=== PATIENT | male | born 1980 | race Caucasian/White ===

== ENCOUNTER 2021-07-13 18:02 | Inpatient (IN) ==
[2021-07-13] MEDS ORDERED: ONDANSETRON INJ 2 MG/ML 2 ML VIAL IV STA (18:15)
--- NOTE | 2021-07-13 18:19 | Emergency Department Note ---
Impression & Plan Acute alcoholic liver disease ADMIT ED Provider Note HPI: The patient is a 41-year-old male with history of alcohol abuse, presents the emergency department today with chief complaint of nausea and abdominal pain that has been ongoing for several weeks. Patient states he saw his primary care provider on Wednesday for the symptoms, he was advised to come to the emergency room as he did have scleral icterus, abdominal distention, concern for liver failure secondary to alcohol abuse. Patient states that he had work over the weekend and describes himself as "stubborn" and therefore did not come to the emergency room until today. On arrival he is hemodynamically stable, he is noted to be jaundiced with scleral icterus, he does have abdominal distention and pain. He states he has had some vomiting over the past several days, denies any hematemesis. States he has had some blood per rectum. He is otherwise in no acute distress on my initial evaluation. ROS: -GI: Abdominal pain, concern for alcoholic hepatitis, nausea and vomiting *10 point review systems was conducted and is otherwise negative unless stated above *Outpatient medications and allergy history reviewed PE: General: Alert, NAD, jaundiced appearance HEENT: Normocephalic, atraumatic Eyes: Extraocular eye movement is intact, no scleral erythema, there is scleral icterus noted Pulmonary: Clear to auscultation bilaterally, no wheezing Cardio: Regular rate and rhythm GI: Abdomen is distended, moderate tenderness to palpation : No suprapubic tenderness MSK: No evidence of trauma or malformation of the extremities, no edema Skin: No evidence of rash, jaundice appearance Neuro: Alert, no focal deficits Psychiatric: Cooperative monitor technician: - An order was placed for continuous cardiac monitoring - Patient was noted to be in sinus rhythm with rate of 110 EKG: Rate: 114 Rhythm: Sinus rhythm Intervals: Within normal limits ST changes: No ST elevation Time: 1822 Medical Decision Making: Patient presented to the emergency department at the advice of his outpatient physician, he has had some generalized weakness as well as nausea, states he has had some abdominal discomfort. Patient states he is a longstanding history of alcohol abuse, drinks apparently 5-6 alcoholic beverages a day. On arrival here to the ED he is alert and in no acute distress but he is jaundiced appearing, does have scleral icterus. IV was established, lab work obtained, patient has a significant leukocytosis greater than 22,000 and therefore blood cultures were drawn and patient was started on IV ceftriaxone. Mild LFT elevation, no acute kidney injury, bilirubin is markedly elevated greater than 15. Unable to obtain ammonia or lipase secondary to icteric blood. CT imaging of the abdomen pelvis shows evidence of changes consistent with cirrhotic liver disease. Patient has a small amount of ascites. Possible ileus. No acute surgical abnormality is noted. Patient was given pain medicine and antiemetics here in the ED, on my reassessment he states he is feeling improved from previous. He has not previously been admitted to the hospital for any of these issues, states he is not currently on any medications, I believe at this time he would benefit from admission with GI consultation, he will be started on ceftriaxone prophylactically, low suspicion for SBP but with elevated leukocytosis will start prophylactically. Patient is in agreement for admission, hospitalist service from [facility] was consulted for admission the patient was admitted in stable condition. Diagnosis: 1. Alcoholic cirrhosis, acute alcoholic liver failure 2. Hyperbilirubinemia 3. Abdominal pain, nausea and vomiting 4. Leukocytosis Disposition: Admission Bowen Vigil DO Emergency Medicine Past Med/Surg History Medical History Condyloma No significant past medical history Surgical History History of surgery "stomach ulcer surgery" Family History (Updated 07/04/19 @ 09:43 by Pam Tristan) Mother Hypertension Social History Smoking Status: Current every day smoker Tobacco Type: Cigarettes Hx Alcohol Use: Yes marital status: Single Feels Safe at Home: Yes Allergies Allergies Allergy/AdvReac Type Severity Reaction Status Date / Time No Known Allergies Allergy Verified 07/13/21 18:18 Home Meds Home Medications Medication Instructions Recorded Confirmed albuterol sulfate 90 mcg/actuation 2 puff INHALATION QID PRN 07/13/21 07/13/21 aerosol inhaler Results & Data (ED) Vital Signs Vital Signs - 24 hr 07/13/21 18:06 07/13/21 18:38 Temperature 36.6 C Temperature Source Temporal Artery Scan Pulse Rate 100 H Pulse Rate [Left Radial] 115 H Pulse Rhythm [Left Radial] Regular Pulse Strength [Left Radial] Normal Respiratory Rate 16 20 Respiratory Effort / Characteristics Non-Labored Non-Labored Respiratory Depth Normal Normal Respiratory Pattern Regular Blood Pressure 150/95 H Blood Pressure [Left Radial Artery] 145/97 H Blood Pressure Mean 113 Blood Pressure Mean [Left Radial Artery] 113 Pulse Oximetry 94 98 Oxygen Delivery Method Room Air Room Air Sepsis Recent Fever Within 48 Hours No Sepsis New/Unexplained Change in Mental Status No Sepsis Action Taken by Nursing No Action Required Laboratory Data Result diagrams: 07/13/21 18:31 07/13/21 18:31 Lab Results 07/13/21 07/13/21 07/13/21 Range/Units 18:31 18:31 18:31 WBC 22.80 H (4.8-10.8) K/uL RBC 3.24 L (4.7-6.1) M/uL Hgb 12.2 L (14.0-18.0) g/dL Hct 35.7 L (42-52) % MCV 110.2 H (80-100) fL MCH 37.7 H (25-34) pg MCHC 34.2 (32-36) g/dL RDW Std Deviation 69.3 H (36.4-46.3) fL RDW Coeff of Mac 17.2 H (11.5-14.5) % Plt Count 234 (130-400) K/uL MPV 10.6 H (7.4-10.4) fL Immature Gran % (Auto) 0.7 % Neut % (Auto) 74.9 % Lymph % (Auto) 13.5 % [place] % (Auto) 6.8 % Eos % (Auto) 3.6 % Baso % (Auto) 0.5 % Neut # (Auto) 17.08 H (1.4-6.5) K/uL Lymph # (Auto) 3.07 (1.2-3.4) K/uL [place] # (Auto) 1.56 H (0.11-0.59) K/uL Eos # (Auto) 0.82 H (0-0.5) K/uL Baso # (Auto) 0.12 (0-0.2) K/uL Immature Gran # (Auto) 0.15 H (0.00-0.02) K/uL Macrocytosis Present Target Cells 1+ PT 14.9 H (9.0-12.0) Seconds INR 1.5 H (0.9-1.1) Sodium 132 L (136-145) mmol/L Potassium 3.4 L (3.5-5.1) mmol/L Chloride 96 L (98-107) mmol/L Carbon Dioxide 24 (21-32) mmol/L Anion Gap 12 H (3-11) BUN 5 L (6-23) mg/dl Creatinine 0.52 L (0.6-1.4) mg/dl Est Cr Clr Drug Dosing 260.5 ml/min Est GFR ( Amer) > 150.0 ml/min Est GFR (Non-Af Amer) 133.4 ml/min BUN/Creatinine Ratio 9.6 L (10-20) Glucose 120 H (70-99(Fasting)) mg/dl Lactate Calcium 7.3 L (8.5-10.1) mg/dl Total Bilirubin 15.1 H (0.2-1.0) mg/dl AST 173 H (13-39) U/L ALT 19 (7-52) U/L Alkaline Phosphatase 371 H (34-104) U/L Ammonia (18-72) umol/L Troponin I 0.03 (0-0.04) ng/ml Total Protein 6.6 (6.0-8.3) gm/dl Albumin 2.8 L (3.4-5.0) gm/dl Globulin 3.8 (2.5-4.0) gm/dl Albumin/Globulin Ratio 0.7 L (0.9-2) Lipase TNP 07/13/21 07/13/21 Range/Units 18:31 18:31 WBC (4.8-10.8) K/uL RBC (4.7-6.1) M/uL Hgb (14.0-18.0) g/dL Hct (42-52) % MCV (80-100) fL MCH (25-34) pg MCHC (32-36) g/dL RDW Std Deviation (36.4-46.3) fL RDW Coeff of Mac (11.5-14.5) % Plt Count (130-400) K/uL MPV (7.4-10.4) fL Immature Gran % (Auto) % Neut % (Auto) % Lymph % (Auto) % [place] % (Auto) % Eos % (Auto) % Baso % (Auto) % Neut # (Auto) (1.4-6.5) K/uL Lymph # (Auto) (1.2-3.4) K/uL [place] # (Auto) (0.11-0.59) K/uL Eos # (Auto) (0-0.5) K/uL Baso # (Auto) (0-0.2) K/uL Immature Gran # (Auto) (0.00-0.02) K/uL Macrocytosis Target Cells PT (9.0-12.0) Seconds INR (0.9-1.1) Sodium (136-145) mmol/L Potassium (3.5-5.1) mmol/L Chloride (98-107) mmol/L Carbon Dioxide (21-32) mmol/L Anion Gap (3-11) BUN (6-23) mg/dl Creatinine (0.6-1.4) mg/dl Est Cr Clr Drug Dosing ml/min Est GFR ( Amer) ml/min Est GFR (Non-Af Amer) ml/min BUN/Creatinine Ratio (10-20) Glucose (70-99(Fasting)) mg/dl Lactate TNP Calcium (8.5-10.1) mg/dl Total Bilirubin (0.2-1.0) mg/dl AST (13-39) U/L ALT (7-52) U/L Alkaline Phosphatase (34-104) U/L Ammonia (18-72) umol/L Troponin I (0-0.04) ng/ml Total Protein (6.0-8.3) gm/dl Albumin (3.4-5.0) gm/dl Globulin (2.5-4.0) gm/dl Albumin/Globulin Ratio (0.9-2) Lipase Administered Medications Discontinued Medications Ioversol (Optiray 320 100ml) 94 ml IV ONCE ONE Stop: 07/13/21 19:34 Last Admin: 07/13/21 19:33 Dose: 94 ml Documented by: [id number] Ondansetron HCl (Ondansetron Inj 2 Mg/Ml 2 Ml Vial) 4 mg IV NOW STA Stop: 07/13/21 18:16 Last Admin: 07/13/21 18:36 Dose: 4 mg Documented by: [id number] Imaging Data Radiologist's Impression: Abdomen/Pelvis CT 07/13/21 18:[address] WITH IV CONTRAST CT DOSE: 1597.64 mGy.cm HISTORY: Generalized abdominal pain, cirrhosis TECHNIQUE: Multiaxial CT images of the abdomen and pelvis were performed following the use of intravenous contrast. A dose lowering technique was utilized adhering to the principles of ALARA. COMPARISON STUDY: None. FINDINGS: Trace left pleural effusion. Severe hepatomegaly resulting in the elevated right hemidiaphragm. Right basilar linear densities consistent with mild compressive atelectasis. Small patchy densities within the left lower lobe posteriorly also favor compressive atelectasis from the pleural effusion. No fractures within the visualized osseous structures. Mild body wall edema. Subtle nodular contour to the liver consistent with cirrhosis. No hepatic or splenic masses. The spleen is normal in size. The adrenal glands, pancreas, and gallbladder are unremarkable. The main portal vein is patent. Normal caliber abdominal aorta. Multiple small upper abdominal varicosities are noted consistent with underlying portal hypertension. A 5 mm hypodense lesion within the upper pole of the left kidney. This is technically too small to characterize. The right kidney enhances normally. No hydronephrosis. A small amount of ascites is present. Questionable thickening within the jejunal loops within the left side the abdomen is likely due to the patient's diffuse edematous state. An enteritis could also a similar appearance but is considered less likely. Mildly dilated loops of small bowel within the midabdomen measuring up to 3.4 cm in diameter. This favors a mild ileus. A partial small bowel obstruction could also have a similar appearance. The bladder is unremarkable. The appendix is not identified. A few colonic diverticula. No evidence for acute diverticulitis. Questionable thickening of the ascending colon is likely due to a portal colopathy. IMPRESSION: 1. Cirrhotic and enlarged liver with multiple small upper abdominal varicosities consistent with underlying portal hypertension. 2. Small amount of ascites. 3. Trace left pleural effusion. 4. Mild diffuse body wall edema. 5. Questionable thickening within the jejunal loops within the left side of the abdomen is likely due to a combination of underdistention and the patient's diffuse edematous state. An enteritis is considered less likely but not entirely excluded. 6. A few mildly dilated gas and fluid-filled loops of small bowel within the midabdomen. This favors an ileus. A partial small bowel obstruction could also have a similar appearance in the appropriate clinical setting. 7. Additional findings as described above. ACT 112: Negative or not required by law. Electronically signed by: Erik Crisostomo M.D. 07/13/2021 7:52 PM Chest X-Ray 07/13/21 18:16 XR chest 1V portable HISTORY: weakness COMPARISON: None. FINDINGS: No pneumothorax. No pleural effusions. There is elevation the right hemidiaphragm. A few bibasilar linear densities favor subsegmental atelectasis. The upper lung zones remain clear. No evidence for pulmonary edema. The heart is top normal in size. IMPRESSION: 1. Elevation of the right hemidiaphragm. 2. A few bibasilar linear densities favor subsegmental atelectasis. ACT 112: Negative or not required by law. Electronically signed by: Erik Crisostomo M.D. 07/13/2021 6:47 PM Discharge Plan Visit Data Chief Complaint: GI Assessment Stated Complaint: LLQ ABDOMINAL PAIN, RECTAL BLEEDING, DYSLIPIDEMIA ED Provider: Bowen Vigil Discharge Problem: Acute alcoholic liver disease Forms Stand Alone Forms: [facility] [employer] Prescriptions Prescriptions: No Action albuterol sulfate 90 mcg/actuation HFA aerosol inhaler 2 puff INHALATION QID PRN (Reason: Shortness Of Breath Or Wheezing) RF: 0 Referrals Referrals: Surendra Casey DO [Primary Care Provider] -
[2021-07-13 18:43] LABS: Basophils # (auto) 0.12 K/uL (0-0.2); Basophils % (auto) 0.5 %; Eosinophils # (auto) 0.82 K/uL (0-0.5); Eosinophils % (auto) 3.6 %; Hematocrit (blood only) 35.7 % (42-52); Hemoglobin 12.2 g/dL (14.0-18.0); Immature Granulocytes # (auto) 0.15 K/uL (0.00-0.02); Immature Granulocytes % (auto) 0.7 %; Lymphocytes # (auto) 3.07 K/uL (1.2-3.4); Lymphocytes % (auto) 13.5 %; Mean Corpuscular Hemoglobin 37.7 pg (25-34); Mean Corpuscular Hgb Conc 34.2 g/dL (32-36); Mean Corpuscular Volume 110.2 fL (80-100); Mean Platelet Volume 10.6 fL (7.4-10.4); Monocytes # (auto) 1.56 K/uL (0.11-0.59); Monocytes % (auto) 6.8 %; Neutrophils # (auto) 17.08 K/uL (1.4-6.5); Neutrophils % (auto) 74.9 %; Platelet Count 234 K/uL (130-400); RDW Coefficient of Variation 17.2 % (11.5-14.5); RDW Standard Deviation 69.3 fL (36.4-46.3); Red Blood Count 3.24 M/uL (4.7-6.1)
[2021-07-13] MEDS ORDERED: cefTRIAXone SODIUM 2,000 MG/70 ML BAG IV STA (18:46)
--- NOTE | 2021-07-13 18:48 | XRay Report ---
XR chest 1V portable HISTORY: weakness COMPARISON: None. FINDINGS: No pneumothorax. No pleural effusions. There is elevation the right hemidiaphragm. A few bi basilar linear densities favor subsegmental atelectasis. The upper lung zones remain clear. No eviden ce for pulmonary edema. The heart is top normal in size. IMPRESSION: 1. Elevation of the right hemidiaphragm. 2. A few bibasilar linear densities favor subsegmental atelectasis. ACT 112: Negative or not required by law. Electronically signed by: Erik Crisostomo M.D. 07/13/2021 6:47 PM
[2021-07-13 18:51] LABS: INR 1.5 (0.9-1.1); Prothrombin Time 14.9 Seconds (9.0-12.0)
[2021-07-13 19:06] LABS: Macrocytosis Present; Target Cells 1+
[2021-07-13 19:10] LABS: Alanine Aminotransferase 19 U/L (7-52); Albumin Globulin Ratio 0.7 (0.9-2); Albumin Level 2.8 gm/dl (3.4-5.0); Alkaline Phosphatase 371 U/L (34-104); Anion Gap 12 (3-11); Aspartate Aminotransferase 173 U/L (13-39); BUN Creatinine Ratio 9.6 (10-20); Bilirubin,Total 15.1 mg/dl (0.2-1.0); Blood Urea Nitrogen 5 mg/dl (6-23); Calcium 7.3 mg/dl (8.5-10.1); Carbon Dioxide 24 mmol/L (21-32); Chloride 96 mmol/L (98-107); Creatinine Clr Calc Pharmacy 260.5 ml/min; Est GFR (African American) > 150.0 ml/min; Est GFR (Non-African American) 133.4 ml/min; Globulin 3.8 gm/dl (2.5-4.0); Glucose 120 mg/dl (70-99(Fasting)); Potassium 3.4 mmol/L (3.5-5.1); Sodium 132 mmol/L (136-145); Total Protein 6.6 gm/dl (6.0-8.3); Troponin I 0.03 ng/ml (0-0.04)
[2021-07-13] MEDS ORDERED: OPTIRAY 320 100ml IV ONE (19:33)
--- NOTE | 2021-07-13 19:54 | CT Scan Report ---
ABDOMEN AND PELVIS CT WITH IV CONTRAST CT DOSE: 1597.64 mGy.cm HISTORY: Generalized abdominal pain, cirrhosis TECHNIQUE: Multiaxial CT images of the abdomen and pelvis were performed following the use of intrave nous contrast. A dose lowering technique was utilized adhering to the principles of ALARA. COMPARISON STUDY: None. FINDINGS: Trace left pleural effusion. Severe hepatomegaly resulting in the elevated right hemidiaphr agm. Right basilar linear densities consistent with mild compressive atelectasis. Small patchy densit ies within the left lower lobe posteriorly also favor compressive atelectasis from the pleural effusi on. No fractures within the visualized osseous structures. Mild body wall edema. Subtle nodular conto ur to the liver consistent with cirrhosis. No hepatic or splenic masses. The spleen is normal in size . The adrenal glands, pancreas, and gallbladder are unremarkable. The main portal vein is patent. Nor mal caliber abdominal aorta. Multiple small upper abdominal varicosities are noted consistent with un derlying portal hypertension. A 5 mm hypodense lesion within the upper pole of the left kidney. This is technically too small to characterize. The right kidney enhances normally. No hydronephrosis. A sm all amount of ascites is present. Questionable thickening within the jejunal loops within the left si de the abdomen is likely due to the patient's diffuse edematous state. An enteritis could also a praful lar appearance but is considered less likely. Mildly dilated loops of small bowel within the midabdom en measuring up to 3.4 cm in diameter. This favors a mild ileus. A partial small bowel obstruction co uld also have a similar appearance. The bladder is unremarkable. The appendix is not identified. A fe w colonic diverticula. No evidence for acute diverticulitis. Questionable thickening of the ascending colon is likely due to a portal colopathy. IMPRESSION: 1. Cirrhotic and enlarged liver with multiple small upper abdominal varicosities consistent with unde rlying portal hypertension. 2. Small amount of ascites. 3. Trace left pleural effusion. 4. Mild diffuse body wall edema. 5. Questionable thickening within the jejunal loops within the left side of the abdomen is likely due to a combination of underdistention and the patient's diffuse edematous state. An enteritis is consi dered less likely but not entirely excluded. 6. A few mildly dilated gas and fluid-filled loops of small bowel within the midabdomen. This favors an ileus. A partial small bowel obstruction could also have a similar appearance in the appropriate c linical setting. 7. Additional findings as described above. ACT 112: Negative or not required by law. Electronically signed by: Erik Crisostomo M.D. 07/13/2021 7:52 PM
[2021-07-13] MEDS ORDERED: POTASSIUM CHLORIDE CRTAB 20 MEQ TABCR PO STA (20:09)
[2021-07-13] MEDS ORDERED: MULTI-VITAMIN INFUSION 10 ML, THIAMINE HCL 100 MG, FOLIC ACID 1 MG in SODIUM CHLORIDE 0... IV ONE (20:30)
[2021-07-13] MEDS ORDERED: PANTOPRAZOLE BOLUS/DRIP 1 EA IV STA (21:50)
--- NOTE | 2021-07-13 21:50 | History & Physical Report ---
Date of Service July 13, 2021 Assessment & Plan (1) Abdominal pain: Plan: Newly diagnosed cirrhosis secondary to alcoholism Multifactorial : UGI B (differentials include gastritis, PUD (history of stomach ulcer surgery), possible variceal bleed with note of upper GI varicosities/portal hypertension on imaging)/L GIB from possible internal hemorrhoids SBP, possible sepsis Alcoholic hepatitis, poor prognosis with Maddrey's DF score of 35.3 points New onset anemia secondary to GI bleed Complicated bronchitis, possible sepsis AG MA likely secondary to alcoholic ketoacidosis hyperlipidemia as per records Hyperglycemia rule out DM Hypokalemia ongoing tobacco abuse Medical telemetry IV PPI for UGI B, Octreotide infusion for possible variceal bleed if with further hemoglobin drop CS, ceftriaxone, Albumin for possible SBP GI consult Re: GI bleed, ascites, new diagnosis of cirrhosis, alcoholic hepatitis Anemia work-up, transfuse PRBC if hemoglobin less than 7 and or for symptomatic anemia Doxycycline for complicated bronchitis IVF GERI S, DT precautions Check hemoglobin A1c Replace potassium Nicotine patch as needed DVT prophylaxis. SCDs GI bleed Full code Text document was generated using [employer] voice recognition software. It may contain grammatical or spelling errors. Kindly contact undersigned for clarification of any documentation item in question. History of Present Illness Chief Complaint: Liver problems Primary Care Provider: Surendra Casey DO History obtained from patient and records. Medical history significant for stomach ulcer status post surgery, hyperlipidemia, ongoing tobacco/alcohol abuse. Patient has not been well for about a year. Admits to drinking alcohol in excess following a failed relationship. Denies suicidality. Patient noted increasing abdominal distention with tolerable abdominal pain over the last few months. Intermittent bright red blood per rectum, alternating constipation/diarrhea as per patient. Junky cough symptoms the last 2 months with some shortness of breath. No actual chest pain. Denies aspiration. Possible COVID-19 contacts at work as per patient. Patient has received COVID-19 vaccination. Patient told by some work mates that he was jaundiced. 3 days ago, patient noted melena symptoms along with bright red blood per rectum. Denies OTC NSAID intake. Patient consulted PCP's office 2 days ago. Concern for alcoholic hepatitis with ascites as per note. Abnormal outpatient labs noted as follows: WBC 19.5, hemoglobin 11.6, hematocrit 34, INR 1.2, AST 195, alk phos 466. Outpatient HCV antibody screen was negative. ER consultation recommended. Patient unable to comply right away due to work issues. Last alcoholic drink was this afternoon. No prior history of alcohol withdrawal seizures as per patient. IV Ceftriaxone given at the ER. 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 Allergies Allergy/AdvReac Type Severity Reaction Status Date / Time No Known Allergies Allergy Verified 07/13/21 18:18 Home Medications Medication Instructions Recorded Confirmed Type albuterol sulfate 90 mcg/actuation 2 puff INHALATION QID PRN 07/13/21 07/13/21 History aerosol inhaler Past Med/Surg History Medical History Condyloma No significant past medical history Surgical History History of surgery "stomach ulcer surgery" Family History (Updated 07/04/19 @ 09:43 by Pam Tristan) Mother Hypertension Social History Smoking Status: Current every day smoker Tobacco Type: Cigarettes Cigarettes Per Day: 1.5 PPD; Second Hand Exposure: No; Do You Dip or Chew Tobacco: No; Tobacco Cessation Education Requested by Patient: No Hx Alcohol Use: Yes Alcohol type: hard liquor Hx Substance Use: No Preferred Language: Lao Communication Ability: Effective Coach Driver Required: No Beliefs That Will Affect Care: None marital status: Single Current Living Situation: Family Current Living Situation Comment: Pt. lives w/ mother and father Feels Safe at Home: Yes Safety Concerns: Feels Safe At This Time Assistive Devices: Oxygen - at Night Review of Systems Review of Systems: As per HPI, all 10 systems reviewed, all other ROS negative Physical Exam Physical Exam: GENERAL: Comfortable, obese, no respiratory distress SKIN: jaundiced, warm HEENT: Pale palpebral conjunctivae, no ptosis, icteric sclerae, dry buccal mucosa NECK : Supple, short neck, no tenderness CHEST : Decreased breath sounds, occasional expiratory wheezes , no tenderness HEART : Tachycardic, no obvious murmurs ABDOMEN: distention, epigastric tenderness EXTREMITIES : Minimal LE swelling, no LE tenderness, no other conspicuous deformities noted NEUROLOGIC : Coherent, no facial asymmetry, no other gross focality Results & Data Results & Data ([facility]) Vital Signs (Past 12 Hours) Vital Signs Temp Pulse Pulse Resp BP BP Pulse Ox 07/13/21 20:33 115 H 20 136/96 98 07/13/21 18:38 115 H 20 145/97 H 98 07/13/21 18:06 36.6 C 100 H 16 150/95 H 94 Laboratory Results Laboratory Results WBC 22.80 K/uL (4.8-10.8) H 07/13/21 18:31 RBC 3.24 M/uL (4.7-6.1) L 07/13/21 18:31 Hgb 12.2 g/dL (14.0-18.0) L 07/13/21 18:31 Hct 35.7 % (42-52) L 07/13/21 18:31 MCV 110.2 fL (80-100) H 07/13/21 18:31 MCH 37.7 pg (25-34) H 07/13/21 18:31 MCHC 34.2 g/dL (32-36) 07/13/21 18:31 RDW Std Deviation 69.3 fL (36.4-46.3) H 07/13/21 18:31 RDW Coeff of Mac 17.2 % (11.5-14.5) H 07/13/21 18:31 Plt Count 234 K/uL (130-400) 07/13/21 18:31 MPV 10.6 fL (7.4-10.4) H 07/13/21 18:31 Immature Gran % (Auto) 0.7 % 07/13/21 18: Neut % (Auto) 74.9 % 07/13/21 18:31 Lymph % (Auto) 13.5 % 07/13/21 18:31 [place] % (Auto) 6.8 % 07/13/21 18:31 Eos % (Auto) 3.6 % 07/13/21 18:31 Baso % (Auto) 0.5 % 07/13/21 18:31 Neut # (Auto) 17.08 K/uL (1.4-6.5) H 07/13/21 18:31 Lymph # (Auto) 3.07 K/uL (1.2-3.4) 07/13/21 18:31 [place] # (Auto) 1.56 K/uL (0.11-0.59) H 07/13/21 18:31 Eos # (Auto) 0.82 K/uL (0-0.5) H 07/13/21 18:31 Baso # (Auto) 0.12 K/uL (0-0.2) 07/13/21 18:31 Immature Gran # (Auto) 0.15 K/uL (0.00-0.02) H 07/13/21 18:31 Macrocytosis Present 07/13/21 18:31 Target Cells 1+ 07/13/21 18:31 PT 14.9 Seconds (9.0-12.0) H 07/13/21 18:31 INR 1.5 (0.9-1.1) H 07/13/21 18:31 Sodium 132 mmol/L (136-145) L 07/13/21 18:31 Potassium 3.4 mmol/L (3.5-5.1) L 07/13/21 18:31 Chloride 96 mmol/L (98-107) L 07/13/21 18:31 Carbon Dioxide 24 mmol/L (21-32) 07/13/21 18:31 Anion Gap 12 (3-11) H 07/13/21 18:31 BUN 5 mg/dl (6-23) L 07/13/21 18:31 Creatinine 0.52 mg/dl (0.6-1.4) L 07/13/21 18:31 Est Cr Clr Drug Dosing 260.5 ml/min 07/13/21 18:31 Est GFR ( Amer) > 150.0 ml/min 07/13/21 18:31 Est GFR (Non-Af Amer) 133.4 ml/min 07/13/21 18:31 BUN/Creatinine Ratio 9.6 (10-20) L 07/13/21 18:31 Glucose 120 mg/dl (70-99(Fasting)) H 07/13/21 18:31 Lactate TNP 07/13/21 19:56 Calcium 7.3 mg/dl (8.5-10.1) L 07/13/21 18:31 Magnesium 1.4 mg/dl (1.7-2.4) L 07/13/21 18:31 Total Bilirubin 15.1 mg/dl (0.2-1.0) H 07/13/21 18:31 AST 173 U/L (13-39) H 07/13/21 18:31 ALT 19 U/L (7-52) 07/13/21 18:31 Alkaline Phosphatase 371 U/L (34-104) H 07/13/21 18:31 Ammonia umol/L (18-72) 07/13/21 18:31 Troponin I 0.03 ng/ml (0-0.04) 07/13/21 18:31 Total Protein 6.6 gm/dl (6.0-8.3) 07/13/21 18:31 Albumin 2.8 gm/dl (3.4-5.0) L 07/13/21 18:31 Globulin 3.8 gm/dl (2.5-4.0) 07/13/21 18:31 Albumin/Globulin Ratio 0.7 (0.9-2) L 07/13/21 18:31 Lipase TNP 07/13/21 18:31 Procalcitonin 0.30 ng/ml (0-0.5) 07/13/21 20:40 SARS-CoV-2, RNA, NAAT NEGATIVE (NEGATIVE) 07/13/21 20:31 Blood Type O Negative 07/13/21 18:31 Antibody Screen NEGATIVE 07/13/21 18:31 Impressions Abdomen/Pelvis CT 07/13/21 18:[address] WITH IV CONTRAST CT DOSE: 1597.64 mGy.cm HISTORY: Generalized abdominal pain, cirrhosis TECHNIQUE: Multiaxial CT images of the abdomen and pelvis were performed following the use of intravenous contrast. A dose lowering technique was utilized adhering to the principles of ALARA. COMPARISON STUDY: None. FINDINGS: Trace left pleural effusion. Severe hepatomegaly resulting in the elevated right hemidiaphragm. Right basilar linear densities consistent with mild compressive atelectasis. Small patchy densities within the left lower lobe posteriorly also favor compressive atelectasis from the pleural effusion. No fractures within the visualized osseous structures. Mild body wall edema. Subtle nodular contour to the liver consistent with cirrhosis. No hepatic or splenic masses. The spleen is normal in size. The adrenal glands, pancreas, and gallbladder are unremarkable. The main portal vein is patent. Normal caliber abdominal aorta. Multiple small upper abdominal varicosities are noted consistent with underlying portal hypertension. A 5 mm hypodense lesion within the upper pole of the left kidney. This is technically too small to characterize. The right kidney enhances normally. No hydronephrosis. A small amount of ascites is present. Questionable thickening within the jejunal loops within the left side the abdomen is likely due to the patient's diffuse edematous state. An enteritis could also a similar appearance but is considered less likely. Mildly dilated loops of small bowel within the midabdomen measuring up to 3.4 cm in diameter. This favors a mild ileus. A partial small bowel obstruction could also have a similar appearance. The bladder is unremarkable. The appendix is not identified. A few colonic diverticula. No evidence for acute diverticulitis. Questionable thickening of the ascending colon is likely due to a portal colopathy. IMPRESSION: 1. Cirrhotic and enlarged liver with multiple small upper abdominal varicosities consistent with underlying portal hypertension. 2. Small amount of ascites. 3. Trace left pleural effusion. 4. Mild diffuse body wall edema. 5. Questionable thickening within the jejunal loops within the left side of the abdomen is likely due to a combination of underdistention and the patient's diffuse edematous state. An enteritis is considered less likely but not entirely excluded. 6. A few mildly dilated gas and fluid-filled loops of small bowel within the midabdomen. This favors an ileus. A partial small bowel obstruction could also have a similar appearance in the appropriate clinical setting. 7. Additional findings as described above. ACT 112: Negative or not required by law. Electronically signed by: Erik Crisostomo M.D. 07/13/2021 7:52 PM Chest X-Ray 07/13/21 18:16 XR chest 1V portable HISTORY: weakness COMPARISON: None. FINDINGS: No pneumothorax. No pleural effusions. There is elevation the right hemidiaphragm. A few bibasilar linear densities favor subsegmental atelectasis. The upper lung zones remain clear. No evidence for pulmonary edema. The heart is top normal in size. IMPRESSION: 1. Elevation of the right hemidiaphragm. 2. A few bibasilar linear densities favor subsegmental atelectasis. ACT 112: Negative or not required by law. Electronically signed by: Erik Crisostomo M.D. 07/13/2021 6:47 PM Diagnostic Findings EKG as per my interpretation: Rate 115, sinus tachycardia, normal axis, T wave abnormalities inferior leads
[2021-07-13] MEDS ORDERED: DOXYCYCLINE HYCLATE 100 MG CAP PO STA (21:51)
[2021-07-13] MEDS ORDERED: DOXYCYCLINE HYCLATE 100 MG in DEXTROSE 5% 100 ML IV STA (21:51)
[2021-07-13] MEDS ORDERED: GABAPENTIN 600 MG TAB PO STA (21:58)
[2021-07-13] MEDS ORDERED: PANTOprazole 80 MG in DEXTROSE 5% 100 ML IV ONE (22:00)
[2021-07-13] MEDS ORDERED: MAGNESIUM SULFATE / D5W 1 GM/100 ML BAG IV STA (22:04)
[2021-07-13] MEDS ORDERED: GABAPENTIN 1200MG ALCOHOL WITHDRAWAL LOAD PO STA (22:07)
[2021-07-13] MEDS: PANTOprazole 40 MG in DEXTROSE 5% 100 ML IV SCH (22:29)
[2021-07-13] MEDS ORDERED: PROMETHAZINE HCL 12.5 MG in SODIUM CHLORIDE 0.9% 50 ML IV PRN (23:29)
[2021-07-13] MEDS ORDERED: LORazepam 2 MG/1 ML VIAL IV PRN (23:29)
[2021-07-13] MEDS ORDERED: oxyCODONE HCL IR 5 MG TAB (IMMEDIATE RELEASE) PO PRN (23:29)
[2021-07-13] MEDS ORDERED: ATIVAN IV ALCOHOL WITHDRAWL IV PRN (23:29)
[2021-07-13] MEDS: ACETAMINOPHEN 325 MG TAB PO PRN (23:40)
[2021-07-13] MEDS: MELATONIN 3 MG TAB PO PRN (23:40)
[2021-07-13] MEDS: FOLIC ACID 1 MG TAB PO SCH (23:56)
[2021-07-13] MEDS: THIAMINE HCL 100 MG TAB PO SCH (23:56)
[2021-07-14] MEDS: LORazepam 2 MG/1 ML VIAL IV PRN ×2 (00:01→08:20)
[2021-07-14] MEDS: MAGNESIUM SULFATE / D5W 1 GM/100 ML BAG IV SCH ×2 (00:27→03:25)
[2021-07-14 00:41] LABS: Hematocrit (blood only) 31.6 % (42-52); Hemoglobin 10.8 g/dL (14.0-18.0)
[2021-07-14 00:52] LABS: Base Excess VBG 3.4 mEq/L; Oxygen Saturation VBG 72.7 %; pH VBG 7.42 (7.36-7.41)
[2021-07-14 01:09] LABS: Anion Gap 8 (3-11); BUN Creatinine Ratio 9.1 (10-20); Blood Urea Nitrogen 5 mg/dl (6-23); Calcium 6.7 mg/dl (8.5-10.1); Carbon Dioxide 27 mmol/L (21-32); Chloride 98 mmol/L (98-107); Creatinine Clr Calc Pharmacy 247.5 ml/min; Est GFR (African American) > 150.0 ml/min; Est GFR (Non-African American) 130.3 ml/min; Glucose 131 mg/dl (70-99(Fasting)); Potassium 3.5 mmol/L (3.5-5.1); Sodium 133 mmol/L (136-145)
[2021-07-14] MEDS: NICOTINE 21 MG/24 HR TDSY TD SCH (02:16)
[2021-07-14] MEDS: ALBUMIN 25% 12.5 GM/50 ML VIAL IV SCH ×3 (02:26→14:08)
[2021-07-14] MEDS ORDERED: STAT IV STA ×2 (03:06→07:09)
[2021-07-14] MEDS ORDERED: OCTREOTIDE ACETATE 50 MCG in SYRINGE 9.5 ML IV ONE (03:15)
[2021-07-14] MEDS ORDERED: POTASSIUM CHLORIDE CRTAB 20 MEQ TABCR PO STA (03:18)
[2021-07-14] MEDS: GABAPENTIN 600 MG TAB PO SCH ×3 (03:31→17:58)
[2021-07-14] MEDS: OCTREOTIDE ACETATE 500 MCG in DEXTROSE 5% 100 ML IV SCH ×2 (03:45→12:46)
[2021-07-14] MEDS: PANTOprazole 40 MG in DEXTROSE 5% 100 ML IV SCH ×3 (03:47→12:46)
[2021-07-14 06:27] LABS: Basophils # (auto) 0.08 K/uL (0-0.2); Basophils % (auto) 0.5 %; Eosinophils # (auto) 0.77 K/uL (0-0.5); Eosinophils % (auto) 4.4 %; Hematocrit (blood only) 33.3 % (42-52); Immature Granulocytes # (auto) 0.11 K/uL (0.00-0.02); Immature Granulocytes % (auto) 0.6 %; Lymphocytes # (auto) 2.42 K/uL (1.2-3.4); Lymphocytes % (auto) 13.7 %; Mean Corpuscular Volume 112.1 fL (80-100); Mean Platelet Volume 10.4 fL (7.4-10.4); Monocytes # (auto) 1.01 K/uL (0.11-0.59); Monocytes % (auto) 5.7 %; Neutrophils # (auto) 13.31 K/uL (1.4-6.5); Neutrophils % (auto) 75.1 %; Platelet Count 204 K/uL (130-400); RDW Coefficient of Variation 17.5 % (11.5-14.5); RDW Standard Deviation 71.6 fL (36.4-46.3); Red Blood Count 2.97 M/uL (4.7-6.1); Reticulocyte % 4.1 % (0.5-2.0); Reticulocytes # 0.12 10^6/uL (0.02-0.10)
[2021-07-14 06:41] LABS: Color Urine Brown
[2021-07-14 06:42] LABS: Appearance Urine Slightly Cloudy (Clear); Specific Gravity Urine 1.028 (1.000-1.030)
[2021-07-14 06:43] LABS: Bacteria Urine 1+ (Negative); RBC Urine 0-4 /hpf (0-4)
[2021-07-14 07:03] LABS: Potassium 4.3 mmol/L (3.5-5.1)
[2021-07-14 07:11] LABS: Alanine Aminotransferase 17 U/L (7-52); Albumin Globulin Ratio 0.8 (0.9-2); Albumin Level 2.7 gm/dl (3.4-5.0); Alkaline Phosphatase 331 U/L (34-104); Anion Gap 9 (3-11); Aspartate Aminotransferase 160 U/L (13-39); BUN Creatinine Ratio 7.7 (10-20); Blood Urea Nitrogen 4 mg/dl (6-23); Carbon Dioxide 26 mmol/L (21-32); Chloride 98 mmol/L (98-107); Creatinine Clr Calc Pharmacy 261.8 ml/min; Est GFR (African American) > 150.0 ml/min; Est GFR (Non-African American) 133.4 ml/min; Ferritin 464.9 ng/ml (8-388); Globulin 3.3 gm/dl (2.5-4.0); Glucose 115 mg/dl (70-99(Fasting)); Iron 78 mcg/dl (35-175); Magnesium 1.8 mg/dl (1.7-2.4); Sodium 133 mmol/L (136-145); Transferrin 110 mg/dl (200-360)
[2021-07-14 07:15] LABS: Folate (Folic Acid) 4.25 ng/ml (>5.38)
[2021-07-14] MEDS ORDERED: CALCIUM GLUCONATE 10% 1,000 MG in DEXTROSE 5% 50 ML IV ONE (07:15)
[2021-07-14 07:21] LABS: Macrocytosis Present; Target Cells 1+
[2021-07-14 07:51] LABS: Estimated Average Glucose 91 mg/dl; Hemoglobin A1C 4.8 % (4.5-5.6)
[2021-07-14] MEDS: ACETAMINOPHEN 325 MG TAB PO PRN (08:19)
[2021-07-14] MEDS: THIAMINE HCL 100 MG TAB PO SCH (08:20)
[2021-07-14] MEDS: MULTIVITAMIN TAB PO SCH (08:20)
[2021-07-14] MEDS: FOLIC ACID 1 MG TAB PO SCH (08:20)
[2021-07-14] MEDS: DOXYCYCLINE HYCLATE 100 MG CAP PO SCH ×2 (08:21→19:54)
--- NOTE | 2021-07-14 09:01 | Gastrointestinal Consultation ---
Date of Consultation July 14, 2021 Assessment & Plan (1) Acute alcoholic liver disease: (2) Abdominal pain: (3) Elevated LFTs: 41 y/o male w/ h/o ETOH abuse, admitted w/ abd pain, distention, labs concerning for alcoholic hepatitis, sepsis. Possible SBP. - Arrange diagnostic/therapeutic paracentesis, please send fluid for albumin/protein, cell count and culture - UC/BC pending - Continue empiric ABX - Will review need for steroids pending w/u of above - Watch for ETOH withdrawal - Encourage pt to abstain from ETOH, consider rehab - Trend daily LFTs, INR - Would avoid APAP > 2 gm daily, NSAIDs, hepatotoxins - Thiamine, folic acid supplementation - Will need OP w/u for cirrhosis including EGD Thank you for allowing us to participate in the care of this patient. Please call with any acute changes, questions or concerns. Please see addendum below with additional recommendation from my supervising physician. Supervising Physician Co-Signing Physician Notes Attg add: I interviewed and examined pt, reviewed chart and labs. Pt with alc hep. Imaging without sahil dil. I calculate DF as 28. Rec pierre-cx, tap ascites, follow for DT's. Consider NAC although DF < 32. No need for albumin, PPI gtt. Defer abx management to primary service. Need for alcohol cessation d/w pt. History of Present Illness Reason for Consultation: gi bleed Requesting Physician: Dr. Stewart Attending Physician: Amadeo Leavitt MD History of Present Illness This is a 41 y/o male with h/o HLD, tobacco/ETOH abuse, history of previous stomach ulcer s/p surgical tx, who has been drinking ETOH heavily (1 L of vodka daily), admitted 07/13 after presenting with several symptoms including abd distension x months, intermittent hematochezia, cough x 2 months, SOB. As an OP LFTs were elevated. On arrival HGB 12.2, today is 11.3, WBC 22 K -> 17 today, procal elevated, concerning for sepsis, elevated INR, tbili 15, ALP 330, AST 160, low albumin, hyponatremia and hypocalcemia, CTAP w/ no sahil dil, but cirrhotic appearing liver, small ascites, findings of portal HTN, ? enteritis, ileus. Started on doxy for bronchitis thiamine and folic acid replacement. Maddrey's was elevated on admission, concerning for alcoholic hepatitis. He's had intermittent fevers, has tachycardia. On exam abd is distended, tender over the LLQ but complains of intermittent d iffuse abd discomfort. Denies CP, hematemesis, no BM since admission. Liver CT: 1. Hepatic steatosis and hepatomegaly. 2. Moderate ascites. 3. Subcentimeter kyree hepatis and retroperitoneal nodes. 4. Partial visualization of bilateral atelectasis and small left pleural effusion. Allergies Allergy/AdvReac Type Severity Reaction Status Date / Time No Known Allergies Allergy Verified 07/13/21 18:18 Home Medications Medication Instructions Recorded Confirmed Type albuterol sulfate 90 mcg/actuation 2 puff INHALATION QID PRN 07/13/21 07/13/21 History aerosol inhaler Patient History Medical History Condyloma No significant past medical history Surgical History History of surgery "stomach ulcer surgery" Family History (Updated 07/04/19 @ 09:43 by Pam Tristan) Mother Hypertension Social History Smoking Status: Current every day smoker Tobacco Type: Cigarettes Cigarettes Per Day: 1.5 PPD; Second Hand Exposure: No; Do You Dip or Chew Tobacco: No; Tobacco Cessation Education Requested by Patient: No Hx Alcohol Use: Yes Alcohol type: hard liquor Hx Substance Use: No Preferred Language: Iranian Communication Ability: Effective 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 lives w/ mother and father Feels Safe at Home: Yes Safety Concerns: Feels Safe At This Time Assistive Devices: Oxygen - Continuous Review of Systems Review of Systems: All systems reviewed & are unremarkable except as noted in HPI & below Physical Exam Constitutional: WD/WN, vitals as above Somewhat ill appearing Respiratory: normal respiratory effort, lungs clear to auscultation Cardiovascular: Rate/Rhythm: regular rhythm and + tachycardic Extremities: normal capillary refill; no edema Gastrointestinal (Abdomen): + distention, TTP LLQ, no rebound, guarding, + BS Skin: + jaundice Psychiatric: A+Ox3, euthymic affect Results & Data ([facility]) Vital Signs (Past 12 Hours) Vital Signs Temp Pulse Pulse Pulse Resp BP BP 07/14/21 08:12 38.6 C H 134 H 20 07/14/21 07:28 39.4 C H 134 H 07/14/21 04:24 37.3 C 126 H 16 07/13/21 23:32 125 H 07/13/21 23:29 37.9 C H 123 H 18 07/13/21 22:59 115 H 20 112/64 07/13/21 22:00 115 H 20 126/78 BP Pulse Ox 07/14/21 08:12 158/84 H 92 07/14/21 07:28 110/61 93 07/14/21 04:24 110/70 95 07/13/21 23:32 07/13/21 23:29 144/89 H 94 07/13/21 22:59 95 07/13/21 22:00 98 Laboratory Results 07/14/21 07/14/21 07/14/21 Range/Units 06:08 06:08 06:08 WBC (4.8-10.8) K/uL RBC (4.7-6.1) M/uL Hgb (14.0-18.0) g/dL Hct (42-52) % MCV (80-100) fL MCH (25-34) pg MCHC (32-36) g/dL RDW Std Deviation (36.4-46.3) fL RDW Coeff of Mac (11.5-14.5) % Plt Count (130-400) K/uL MPV (7.4-10.4) fL Immature Gran % (Auto) % Neut % (Auto) % Lymph % (Auto) % [place] % (Auto) % Eos % (Auto) % Baso % (Auto) % Reticulocyte % (Auto) (0.5-2.0) % Neut # (Auto) (1.4-6.5) K/uL Lymph # (Auto) (1.2-3.4) K/uL [place] # (Auto) (0.11-0.59) K/uL Eos # (Auto) (0-0.5) K/uL Baso # (Auto) (0-0.2) K/uL Reticulocyte # (0.02-0.10) 10^6/uL Immature Gran # (Auto) (0.00-0.02) K/uL Macrocytosis Target Cells PT (9.0-12.0) Seconds INR (0.9-1.1) VBG pH (7.36-7.41) VBG pCO2 (38-50) mmHg VBG pO2 mmHg VBG HCO3 mmol/L VBG O2 Saturation % VBG Base Excess mEq/L Barometric Pressure mm/Hg Sodium 133 L (136-145) mmol/L Potassium 4.3 D (3.5-5.1) mmol/L Chloride 98 (98-107) mmol/L Carbon Dioxide 26 (21-32) mmol/L Anion Gap 9 (3-11) BUN 4 L (6-23) mg/dl Creatinine 0.52 L (0.6-1.4) mg/dl Est Cr Clr Drug Dosing 261.8 ml/min Est GFR ( Amer) > 150.0 ml/min Est GFR (Non-Af Amer) 133.4 ml/min BUN/Creatinine Ratio 7.7 L (10-20) Glucose 115 H (70-99(Fasting)) mg/dl Estimat Average Glucose mg/dl Hemoglobin A1c (4.5-5.6) % Lactate Calcium 7.0 L (8.5-10.1) mg/dl Ionized Calcium 1.01 L (1.12-1.32) mmol/L Magnesium 1.8 (1.7-2.4) mg/dl Iron 78 (35-175) mcg/dl Transferrin 110 L (200-360) mg/dl Ferritin 464.9 H (8-388) ng/ml Total Bilirubin 14.0 H (0.2-1.0) mg/dl AST 160 H (13-39) U/L ALT 17 (7-52) U/L Alkaline Phosphatase 331 H (34-104) U/L Ammonia (18-72) umol/L Troponin I (0-0.04) ng/ml Total Protein 6.0 (6.0-8.3) gm/dl Albumin 2.7 L (3.4-5.0) gm/dl Globulin 3.3 (2.5-4.0) gm/dl Albumin/Globulin Ratio 0.8 L (0.9-2) Lipase Vitamin B12 1163 H (180-914) pg/ml Folate 4.25 L (>5.38) ng/ml Procalcitonin (0-0.5) ng/ml Urine Color Urine Appearance (Clear) Urine pH (4.5-7.5) Ur Specific [place] (1.000-1.030) Urine Protein (Negative) Urine Glucose (UA) (Negative) Urine Ketones (Negative) Urine Blood (Negative) Urine Nitrite (Negative) Urine Bilirubin (Negative) Urine Urobilinogen (Negative) Ur Leukocyte Esterase (Negative) Urine RBC (0-4) /hpf Urine WBC (0-5) /hpf Ur Epithelial Cells (0-5) /lpf Urine Bacteria (Negative) Ethyl Alcohol mg/dL (<10.0) mg/dl SARS-CoV-2, RNA, NAAT (NEGATIVE) Blood Type Antibody Screen 07/14/21 07/14/21 07/14/21 Range/Units 06:08 05:10 00:22 WBC 17.70 H (4.8-10.8) K/uL RBC 2.97 L (4.7-6.1) M/uL Hgb 11.0 L 10.8 L (14.0-18.0) g/dL Hct 33.3 L 31.6 L (42-52) % MCV 112.1 H (80-100) fL MCH 37.0 H (25-34) pg MCHC 33.0 (32-36) g/dL RDW Std Deviation 71.6 H (36.4-46.3) fL RDW Coeff of Mac 17.5 H (11.5-14.5) % Plt Count 204 (130-400) K/uL MPV 10.4 (7.4-10.4) fL Immature Gran % (Auto) 0.6 % Neut % (Auto) 75.1 % Lymph % (Auto) 13.7 % [place] % (Auto) 5.7 % Eos % (Auto) 4.4 % Baso % (Auto) 0.5 % Reticulocyte % (Auto) 4.1 H (0.5-2.0) % Neut # (Auto) 13.31 H (1.4-6.5) K/uL Lymph # (Auto) 2.42 (1.2-3.4) K/uL [place] # (Auto) 1.01 H (0.11-0.59) K/uL Eos # (Auto) 0.77 H (0-0.5) K/uL Baso # (Auto) 0.08 (0-0.2) K/uL Reticulocyte # 0.12 H (0.02-0.10) 10^6/uL Immature Gran # (Auto) 0.11 H (0.00-0.02) K/uL Macrocytosis Present Target Cells 1+ PT (9.0-12.0) Seconds INR (0.9-1.1) VBG pH (7.36-7.41) VBG pCO2 (38-50) mmHg VBG pO2 mmHg VBG HCO3 mmol/L VBG O2 Saturation % VBG Base Excess mEq/L Barometric Pressure mm/Hg Sodium (136-145) mmol/L Potassium (3.5-5.1) mmol/L Chloride (98-107) mmol/L Carbon Dioxide (21-32) mmol/L Anion Gap (3-11) BUN (6-23) mg/dl Creatinine (0.6-1.4) mg/dl Est Cr Clr Drug Dosing ml/min Est GFR ( Amer) ml/min Est GFR (Non-Af Amer) ml/min BUN/Creatinine Ratio (10-20) Glucose (70-99(Fasting)) mg/dl Estimat Average Glucose mg/dl Hemoglobin A1c (4.5-5.6) % Lactate Calcium (8.5-10.1) mg/dl Ionized Calcium (1.12-1.32) mmol/L Magnesium (1.7-2.4) mg/dl Iron (35-175) mcg/dl Transferrin (200-360) mg/dl Ferritin (8-388) ng/ml Total Bilirubin (0.2-1.0) mg/dl AST (13-39) U/L ALT (7-52) U/L Alkaline Phosphatase (34-104) U/L Ammonia (18-72) umol/L Troponin I (0-0.04) ng/ml Total Protein (6.0-8.3) gm/dl Albumin (3.4-5.0) gm/dl Globulin (2.5-4.0) gm/dl Albumin/Globulin Ratio (0.9-2) Lipase Vitamin B12 (180-914) pg/ml Folate (>5.38) ng/ml Procalcitonin (0-0.5) ng/ml Urine Color Brown Urine Appearance Slightly Cloudy (Clear) Urine pH (4.5-7.5) Ur Specific [place] 1.028 (1.000-1.030) Urine Protein (Negative) Urine Glucose (UA) (Negative) Urine Ketones (Negative) Urine Blood (Negative) Urine Nitrite (Negative) Urine Bilirubin (Negative) Urine Urobilinogen (Negative) Ur Leukocyte Esterase (Negative) Urine RBC 0-4 (0-4) /hpf Urine WBC 5-10 H (0-5) /hpf Ur Epithelial Cells 10-20 H (0-5) /lpf Urine Bacteria 1+ H (Negative) Ethyl Alcohol mg/dL (<10.0) mg/dl SARS-CoV-2, RNA, NAAT (NEGATIVE) Blood Type Antibody Screen 07/14/21 07/14/21 07/14/21 Range/Units 00:22 00:22 00:22 WBC (4.8-10.8) K/uL RBC (4.7-6.1) M/uL Hgb (14.0-18.0) g/dL Hct (42-52) % MCV (80-100) fL MCH (25-34) pg MCHC (32-36) g/dL RDW Std Deviation (36.4-46.3) fL RDW Coeff of Mac (11.5-14.5) % Plt Count (130-400) K/uL MPV (7.4-10.4) fL Immature Gran % (Auto) % Neut % (Auto) % Lymph % (Auto) % [place] % (Auto) % Eos % (Auto) % Baso % (Auto) % Reticulocyte % (Auto) (0.5-2.0) % Neut # (Auto) (1.4-6.5) K/uL Lymph # (Auto) (1.2-3.4) K/uL [place] # (Auto) (0.11-0.59) K/uL Eos # (Auto) (0-0.5) K/uL Baso # (Auto) (0-0.2) K/uL Reticulocyte # (0.02-0.10) 10^6/uL Immature Gran # (Auto) (0.00-0.02) K/uL Macrocytosis Target Cells PT (9.0-12.0) Seconds INR (0.9-1.1) VBG pH 7.42 H (7.36-7.41) VBG pCO2 44 (38-50) mmHg VBG pO2 42 mmHg VBG HCO3 28 mmol/L VBG O2 Saturation 72.7 % VBG Base Excess 3.4 mEq/L Barometric Pressure 733.6 mm/Hg Sodium 133 L (136-145) mmol/L Potassium 3.5 (3.5-5.1) mmol/L Chloride 98 (98-107) mmol/L Carbon Dioxide 27 (21-32) mmol/L Anion Gap 8 (3-11) BUN 5 L (6-23) mg/dl Creatinine 0.55 L (0.6-1.4) mg/dl Est Cr Clr Drug Dosing 247.5 ml/min Est GFR ( Amer) > 150.0 ml/min Est GFR (Non-Af Amer) 130.3 ml/min BUN/Creatinine Ratio 9.1 L (10-20) Glucose 131 H (70-99(Fasting)) mg/dl Estimat Average Glucose mg/dl Hemoglobin A1c (4.5-5.6) % Lactate Calcium 6.7 L (8.5-10.1) mg/dl Ionized Calcium (1.12-1.32) mmol/L Magnesium (1.7-2.4) mg/dl Iron (35-175) mcg/dl Transferrin (200-360) mg/dl Ferritin (8-388) ng/ml Total Bilirubin (0.2-1.0) mg/dl AST (13-39) U/L ALT (7-52) U/L Alkaline Phosphatase (34-104) U/L Ammonia (18-72) umol/L Troponin I (0-0.04) ng/ml Total Protein (6.0-8.3) gm/dl Albumin (3.4-5.0) gm/dl Globulin (2.5-4.0) gm/dl Albumin/Globulin Ratio (0.9-2) Lipase Vitamin B12 (180-914) pg/ml Folate (>5.38) ng/ml Procalcitonin (0-0.5) ng/ml Urine Color Urine Appearance (Clear) Urine pH (4.5-7.5) Ur Specific [place] (1.000-1.030) Urine Protein (Negative) Urine Glucose (UA) (Negative) Urine Ketones (Negative) Urine Blood (Negative) Urine Nitrite (Negative) Urine Bilirubin (Negative) Urine Urobilinogen (Negative) Ur Leukocyte Esterase (Negative) Urine RBC (0-4) /hpf Urine WBC (0-5) /hpf Ur Epithelial Cells (0-5) /lpf Urine Bacteria (Negative) Ethyl Alcohol mg/dL 120.5 H (<10.0) mg/dl SARS-CoV-2, RNA, NAAT (NEGATIVE) Blood Type Antibody Screen 07/13/21 07/13/21 07/13/21 Range/Units 20:40 20:31 19:56 WBC (4.8-10.8) K/uL RBC (4.7-6.1) M/uL Hgb (14.0-18.0) g/dL Hct (42-52) % MCV (80-100) fL MCH (25-34) pg MCHC (32-36) g/dL RDW Std Deviation (36.4-46.3) fL RDW Coeff of Mac (11.5-14.5) % Plt Count (130-400) K/uL MPV (7.4-10.4) fL Immature Gran % (Auto) % Neut % (Auto) % Lymph % (Auto) % [place] % (Auto) % Eos % (Auto) % Baso % (Auto) % Reticulocyte % (Auto) (0.5-2.0) % Neut # (Auto) (1.4-6.5) K/uL Lymph # (Auto) (1.2-3.4) K/uL [place] # (Auto) (0.11-0.59) K/uL Eos # (Auto) (0-0.5) K/uL Baso # (Auto) (0-0.2) K/uL Reticulocyte # (0.02-0.10) 10^6/uL Immature Gran # (Auto) (0.00-0.02) K/uL Macrocytosis Target Cells PT (9.0-12.0) Seconds INR (0.9-1.1) VBG pH (7.36-7.41) VBG pCO2 (38-50) mmHg VBG pO2 mmHg VBG HCO3 mmol/L VBG O2 Saturation % VBG Base Excess mEq/L Barometric Pressure mm/Hg Sodium (136-145) mmol/L Potassium (3.5-5.1) mmol/L Chloride (98-107) mmol/L Carbon Dioxide (21-32) mmol/L Anion Gap (3-11) BUN (6-23) mg/dl Creatinine (0.6-1.4) mg/dl Est Cr Clr Drug Dosing ml/min Est GFR ( Amer) ml/min Est GFR (Non-Af Amer) ml/min BUN/Creatinine Ratio (10-20) Glucose (70-99(Fasting)) mg/dl Estimat Average Glucose mg/dl Hemoglobin A1c (4.5-5.6) % Lactate TNP Calcium (8.5-10.1) mg/dl Ionized Calcium (1.12-1.32) mmol/L Magnesium (1.7-2.4) mg/dl Iron (35-175) mcg/dl Transferrin (200-360) mg/dl Ferritin (8-388) ng/ml Total Bilirubin (0.2-1.0) mg/dl AST (13-39) U/L ALT (7-52) U/L Alkaline Phosphatase (34-104) U/L Ammonia (18-72) umol/L Troponin I (0-0.04) ng/ml Total Protein (6.0-8.3) gm/dl Albumin (3.4-5.0) gm/dl Globulin (2.5-4.0) gm/dl Albumin/Globulin Ratio (0.9-2) Lipase Vitamin B12 (180-914) pg/ml Folate (>5.38) ng/ml Procalcitonin 0.30 (0-0.5) ng/ml Urine Color Urine Appearance (Clear) Urine pH (4.5-7.5) Ur Specific [place] (1.000-1.030) Urine Protein (Negative) Urine Glucose (UA) (Negative) Urine Ketones (Negative) Urine Blood (Negative) Urine Nitrite (Negative) Urine Bilirubin (Negative) Urine Urobilinogen (Negative) Ur Leukocyte Esterase (Negative) Urine RBC (0-4) /hpf Urine WBC (0-5) /hpf Ur Epithelial Cells (0-5) /lpf Urine Bacteria (Negative) Ethyl Alcohol mg/dL (<10.0) mg/dl SARS-CoV-2, RNA, NAAT NEGATIVE (NEGATIVE) Blood Type Antibody Screen 07/13/21 07/13/21 07/13/21 Range/Units 18:31 18:31 18:31 WBC (4.8-10.8) K/uL RBC (4.7-6.1) M/uL Hgb (14.0-18.0) g/dL Hct (42-52) % MCV (80-100) fL MCH (25-34) pg MCHC (32-36) g/dL RDW Std Deviation (36.4-46.3) fL RDW Coeff of Mac (11.5-14.5) % Plt Count (130-400) K/uL MPV (7.4-10.4) fL Immature Gran % (Auto) % Neut % (Auto) % Lymph % (Auto) % [place] % (Auto) % Eos % (Auto) % Baso % (Auto) % Reticulocyte % (Auto) (0.5-2.0) % Neut # (Auto) (1.4-6.5) K/uL Lymph # (Auto) (1.2-3.4) K/uL [place] # (Auto) (0.11-0.59) K/uL Eos # (Auto) (0-0.5) K/uL Baso # (Auto) (0-0.2) K/uL Reticulocyte # (0.02-0.10) 10^6/uL Immature Gran # (Auto) (0.00-0.02) K/uL Macrocytosis Target Cells PT (9.0-12.0) Seconds INR (0.9-1.1) VBG pH (7.36-7.41) VBG pCO2 (38-50) mmHg VBG pO2 mmHg VBG HCO3 mmol/L VBG O2 Saturation % VBG Base Excess mEq/L Barometric Pressure mm/Hg Sodium (136-145) mmol/L Potassium (3.5-5.1) mmol/L Chloride (98-107) mmol/L Carbon Dioxide (21-32) mmol/L Anion Gap (3-11) BUN (6-23) mg/dl Creatinine (0.6-1.4) mg/dl Est Cr Clr Drug Dosing ml/min Est GFR ( Amer) ml/min Est GFR (Non-Af Amer) ml/min BUN/Creatinine Ratio (10-20) Glucose (70-99(Fasting)) mg/dl Estimat Average Glucose 91 mg/dl Hemoglobin A1c 4.8 (4.5-5.6) % Lactate Calcium (8.5-10.1) mg/dl Ionized Calcium (1.12-1.32) mmol/L Magnesium 1.4 L (1.7-2.4) mg/dl Iron (35-175) mcg/dl Transferrin (200-360) mg/dl Ferritin (8-388) ng/ml Total Bilirubin (0.2-1.0) mg/dl AST (13-39) U/L ALT (7-52) U/L Alkaline Phosphatase (34-104) U/L Ammonia (18-72) umol/L Troponin I (0-0.04) ng/ml Total Protein (6.0-8.3) gm/dl Albumin (3.4-5.0) gm/dl Globulin (2.5-4.0) gm/dl Albumin/Globulin Ratio (0.9-2) Lipase Vitamin B12 (180-914) pg/ml Folate (>5.38) ng/ml Procalcitonin (0-0.5) ng/ml Urine Color Urine Appearance (Clear) Urine pH (4.5-7.5) Ur Specific [place] (1.000-1.030) Urine Protein (Negative) Urine Glucose (UA) (Negative) Urine Ketones (Negative) Urine Blood (Negative) Urine Nitrite (Negative) Urine Bilirubin (Negative) Urine Urobilinogen (Negative) Ur Leukocyte Esterase (Negative) Urine RBC (0-4) /hpf Urine WBC (0-5) /hpf Ur Epithelial Cells (0-5) /lpf Urine Bacteria (Negative) Ethyl Alcohol mg/dL (<10.0) mg/dl SARS-CoV-2, RNA, NAAT (NEGATIVE) Blood Type Antibody Screen 07/13/21 07/13/21 07/13/21 Range/Units 18:31 18:31 18:31 WBC (4.8-10.8) K/uL RBC (4.7-6.1) M/uL Hgb (14.0-18.0) g/dL Hct (42-52) % MCV (80-100) fL MCH (25-34) pg MCHC (32-36) g/dL RDW Std Deviation (36.4-46.3) fL RDW Coeff of Mac (11.5-14.5) % Plt Count (130-400) K/uL MPV (7.4-10.4) fL Immature Gran % (Auto) % Neut % (Auto) % Lymph % (Auto) % [place] % (Auto) % Eos % (Auto) % Baso % (Auto) % Reticulocyte % (Auto) (0.5-2.0) % Neut # (Auto) (1.4-6.5) K/uL Lymph # (Auto) (1.2-3.4) K/uL [place] # (Auto) (0.11-0.59) K/uL Eos # (Auto) (0-0.5) K/uL Baso # (Auto) (0-0.2) K/uL Reticulocyte # (0.02-0.10) 10^6/uL Immature Gran # (Auto) (0.00-0.02) K/uL Macrocytosis Target Cells PT 14.9 H (9.0-12.0) Seconds INR 1.5 H (0.9-1.1) VBG pH (7.36-7.41) VBG pCO2 (38-50) mmHg VBG pO2 mmHg VBG HCO3 mmol/L VBG O2 Saturation % VBG Base Excess mEq/L Barometric Pressure mm/Hg Sodium 132 L (136-145) mmol/L Potassium 3.4 L (3.5-5.1) mmol/L Chloride 96 L (98-107) mmol/L Carbon Dioxide 24 (21-32) mmol/L Anion Gap 12 H (3-11) BUN 5 L (6-23) mg/dl Creatinine 0.52 L (0.6-1.4) mg/dl Est Cr Clr Drug Dosing 260.5 ml/min Est GFR ( Amer) > 150.0 ml/min Est GFR (Non-Af Amer) 133.4 ml/min BUN/Creatinine Ratio 9.6 L (10-20) Glucose 120 H (70-99(Fasting)) mg/dl Estimat Average Glucose mg/dl Hemoglobin A1c (4.5-5.6) % Lactate TNP Calcium 7.3 L (8.5-10.1) mg/dl Ionized Calcium (1.12-1.32) mmol/L Magnesium (1.7-2.4) mg/dl Iron (35-175) mcg/dl Transferrin (200-360) mg/dl Ferritin (8-388) ng/ml Total Bilirubin 15.1 H (0.2-1.0) mg/dl AST 173 H (13-39) U/L ALT 19 (7-52) U/L Alkaline Phosphatase 371 H (34-104) U/L Ammonia (18-72) umol/L Troponin I 0.03 (0-0.04) ng/ml Total Protein 6.6 (6.0-8.3) gm/dl Albumin 2.8 L (3.4-5.0) gm/dl Globulin 3.8 (2.5-4.0) gm/dl Albumin/Globulin Ratio 0.7 L (0.9-2) Lipase TNP Vitamin B12 (180-914) pg/ml Folate (>5.38) ng/ml Procalcitonin (0-0.5) ng/ml Urine Color Urine Appearance (Clear) Urine pH (4.5-7.5) Ur Specific [place] (1.000-1.030) Urine Protein (Negative) Urine Glucose (UA) (Negative) Urine Ketones (Negative) Urine Blood (Negative) Urine Nitrite (Negative) Urine Bilirubin (Negative) Urine Urobilinogen (Negative) Ur Leukocyte Esterase (Negative) Urine RBC (0-4) /hpf Urine WBC (0-5) /hpf Ur Epithelial Cells (0-5) /lpf Urine Bacteria (Negative) Ethyl Alcohol mg/dL (<10.0) mg/dl SARS-CoV-2, RNA, NAAT (NEGATIVE) Blood Type Antibody Screen 07/13/21 07/13/21 Range/Units 18:31 18:31 WBC 22.80 H (4.8-10.8) K/uL RBC 3.24 L (4.7-6.1) M/uL Hgb 12.2 L (14.0-18.0) g/dL Hct 35.7 L (42-52) % MCV 110.2 H (80-100) fL MCH 37.7 H (25-34) pg MCHC 34.2 (32-36) g/dL RDW Std Deviation 69.3 H (36.4-46.3) fL RDW Coeff of Mac 17.2 H (11.5-14.5) % Plt Count 234 (130-400) K/uL MPV 10.6 H (7.4-10.4) fL Immature Gran % (Auto) 0.7 % Neut % (Auto) 74.9 % Lymph % (Auto) 13.5 % [place] % (Auto) 6.8 % Eos % (Auto) 3.6 % Baso % (Auto) 0.5 % Reticulocyte % (Auto) (0.5-2.0) % Neut # (Auto) 17.08 H (1.4-6.5) K/uL Lymph # (Auto) 3.07 (1.2-3.4) K/uL [place] # (Auto) 1.56 H (0.11-0.59) K/uL Eos # (Auto) 0.82 H (0-0.5) K/uL Baso # (Auto) 0.12 (0-0.2) K/uL Reticulocyte # (0.02-0.10) 10^6/uL Immature Gran # (Auto) 0.15 H (0.00-0.02) K/uL Macrocytosis Present Target Cells 1+ PT (9.0-12.0) Seconds INR (0.9-1.1) VBG pH (7.36-7.41) VBG pCO2 (38-50) mmHg VBG pO2 mmHg VBG HCO3 mmol/L VBG O2 Saturation % VBG Base Excess mEq/L Barometric Pressure mm/Hg Sodium (136-145) mmol/L Potassium (3.5-5.1) mmol/L Chloride (98-107) mmol/L Carbon Dioxide (21-32) mmol/L Anion Gap (3-11) BUN (6-23) mg/dl Creatinine (0.6-1.4) mg/dl Est Cr Clr Drug Dosing ml/min Est GFR ( Amer) ml/min Est GFR (Non-Af Amer) ml/min BUN/Creatinine Ratio (10-20) Glucose (70-99(Fasting)) mg/dl Estimat Average Glucose mg/dl Hemoglobin A1c (4.5-5.6) % Lactate Calcium (8.5-10.1) mg/dl Ionized Calcium (1.12-1.32) mmol/L Magnesium (1.7-2.4) mg/dl Iron (35-175) mcg/dl Transferrin (200-360) mg/dl Ferritin (8-388) ng/ml Total Bilirubin (0.2-1.0) mg/dl AST (13-39) U/L ALT (7-52) U/L Alkaline Phosphatase (34-104) U/L Ammonia (18-72) umol/L Troponin I (0-0.04) ng/ml Total Protein (6.0-8.3) gm/dl Albumin (3.4-5.0) gm/dl Globulin (2.5-4.0) gm/dl Albumin/Globulin Ratio (0.9-2) Lipase Vitamin B12 (180-914) pg/ml Folate (>5.38) ng/ml Procalcitonin (0-0.5) ng/ml Urine Color Urine Appearance (Clear) Urine pH (4.5-7.5) Ur Specific [place] (1.000-1.030) Urine Protein (Negative) Urine Glucose (UA) (Negative) Urine Ketones (Negative) Urine Blood (Negative) Urine Nitrite (Negative) Urine Bilirubin (Negative) Urine Urobilinogen (Negative) Ur Leukocyte Esterase (Negative) Urine RBC (0-4) /hpf Urine WBC (0-5) /hpf Ur Epithelial Cells (0-5) /lpf Urine Bacteria (Negative) Ethyl Alcohol mg/dL (<10.0) mg/dl SARS-CoV-2, RNA, NAAT (NEGATIVE) Blood Type O Negative Antibody Screen NEGATIVE Diagnostic Findings Liver CT: 1. Hepatic steatosis and hepatomegaly. 2. Moderate ascites. 3. Subcentimeter kyree hepatis and retroperitoneal nodes. 4. Partial visualization of bilateral atelectasis and small left pleural effusion. CTAP: 1. Cirrhotic and enlarged liver with multiple small upper abdominal varicosities consistent with underlying portal hypertension. 2. Small amount of ascites. 3. Trace left pleural effusion. 4. Mild diffuse body wall edema. 5. Questionable thickening within the jejunal loops within the left side of the abdomen is likely due to a combination of underdistention and the patient's diffuse edematous state. An enteritis is considered less likely but not entirely excluded. 6. A few mildly dilated gas and fluid-filled loops of small bowel within the midabdomen. This favors an ileus. A partial small bowel obstruction could also have a similar appearance in the appropriate clinical setting. 7. Additional findings as described above. CXR: 1. Elevation of the right hemidiaphragm. 2. A few bibasilar linear densities favor subsegmental atelectasis.
[2021-07-14] MEDS ORDERED: PIPERACILL/TAZOBAC CONSULT ACTIVE PRN (10:10)
[2021-07-14] MEDS ORDERED: ACETAMINOPHEN 325 MG TAB PO PRN (10:21)
[2021-07-14] MEDS ORDERED: PIPERACILLIN/TAZOBACTAM 4.5 GM in DEXTROSE 5% 100 ML IV ONE (10:30)
[2021-07-14] MEDS: guaiFENesin 600 MG TABCR PO SCH ×2 (12:09→19:55)
[2021-07-14 12:23] LABS: Hemoglobin 11.3 g/dL (14.0-18.0)
--- NOTE | 2021-07-14 12:51 | Electrocardiogram Report ---
Test Reason : Blood Pressure : / mmHG Vent. Rate : 114 BPM Atrial Rate : 114 BPM P-R Int : 198 ms QRS Dur : 094 ms QT Int : 318 ms P-R-T Axes : 038 061 -07 degrees QTc Int : 438 ms Sinus tachycardia with Fusion complexes T wave abnormality, consider inferior ischemia Abnormal ECG No previous ECGs available Confirmed by Abraham Heredia ([id number] on 07/14/2021 12:50:55 PM Referred By: Surendra Casey Confirmed By:Abraham Heredia
[2021-07-14 14:27] LABS: Hepatitis B Surf Ag Rflx Conf Neg (Neg)
--- NOTE | 2021-07-14 14:32 | Hospitalist Progress Note ---
Date of Service July 14, 2021 Assessment & Plan (1) Acute alcoholic liver disease: Plan: 41-year-old male with PMH of stomach ulcer status post surgery, HLD, ongoing tobacco/alcohol abuse [drinking heavily since last 15 months, 1 L of vodka daily] presented to our ED 07/13 due to increasing abdominal distention over the last few months, intermittent bright red blood per rectum [every 3 days per patient], cough symptoms since last 2 months with some shortness of breath. 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 He is being managed for the following: #. Alcoholic hepatitis #. Alcoholic cirrhosisnew diagnosis, Hepatitis panel pending, Outpatient HCV negative. #. Likely both UGI bleed and LGI bleed : Vit B12 level WNL, Folate level decreased, Iron panel with normal iron and ferritin #. Anemia: New onset, secondary to GI bleed. #. Impending alcohol withdrawal: Last drink on the afternoon of the day of arrival, drinks 1 L of vodka daily since last 15 months No prior history of alcohol withdrawal seizures per patient, last alcoholic drink on the afternoon of the day of arrival [07/13] Patient drinking heavily [see above] owing to failed relationship. Admitting CTAP: Cirrhotic liver with multiple small upper abdominal varicosities consistent with underlying portal hypertension. Small amount of ascites. Mild diffuse body wall edema. 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 Patient reports bright red blood intermittently. Differentials for GI bleed likely gastritis, PUD, possible variceal bleed, internal hemorrhoids. Admitting hemoglobin 12.2, 11.3 today. Continue to monitor hemoglobin. AWSS is protocol, telemetry monitoring, PCU status. Thiamine. Folic acid replacement. GI onboard: Appreciate recommendation Continue with PPI gtt., advised alcohol cessation. 07/14 d/w GI #. Enteritis #. Sepsis POA - Tachycardic at admission, leucocytosis at admission, enteritis. Admitting WBC 22.8K, downtrending; Procalcitonin 0.30 at presentation, stable/minimally downtrending. Admitting blood culture pending. Admitting CTAP: Possible thickening within the jejunal loops within the left side of the abdomen likely enteritis. 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 Continue with 07/14 Zosyn #. Hypomagnesemia #. Hyponatremia Admitting magnesium 1.4, repleted, continue to monitor/replete. Admitting sodium 132, stable/minimally improving. Likely secondary to poor p.o. intake on the background of alcohol abuse. Monitor telemetry. Expect to improve with improving p.o. intake. #. Bronchitis Patient reports cough for 2 months with brown sputum Continue with 07/14 doxycycline DVT prophylaxis: SCDs, GI bleed Full code Text document was generated using voice recognition software. It may contain grammatical or spelling errors. Kindly contact undersigned for clarification of any documentation item in question. Admission and Anticipated Discharge Date Admission Date: July 13, 2021 Subjective Patient seen and examined at bedside as a follow-up of newly diagnosed cirrhosis, impending alcohol withdrawal, likely upper GI bleed, likely SBP, possible sepsis, alcohol hepatitis. Patient was lying in bed, on 3 L nasal cannula oxygen, mild distress, febrile, sweating, had high temperatures overnight, reports no pain or burning with passing urine, reports discomfort in his belly but no pain, reports cough at baseline, alert and oriented x3, denies chest pain/palpitations/sore throat/increased cough/increased shortness of breath/other review of symptoms. Physical Exam Physical Exam: GENERAL: Alert and oriented x3. mild distress, on 3L. Febrile, Sweating. HEENT: No pallor, no icterus. Pupils equal, round and reactive to light. Oral mucosa moist. NECK: No JVD, no neck masses. HEART: S1 and S2 heard. Regular rhythm. Tachycardia. No murmur, no gallop. RESPIRATORY SYSTEM: Normal AP diameter. No accessory muscle use. No wheezing, no crackles. ABDOMEN: Soft, bowel sounds present, nontender, + distention. CENTRAL NERVOUS SYSTEM: No facial droop. Speech is clear. Obeys simple commands. Moves extremities. EXTREMITIES: 1-2+ BLE edema, no erythema seen. Fine tremors of the hands noted. Results & Data Results & Data ([facility]) Vital Signs (Past 12 Hours) Vital Signs Temp Pulse Pulse Resp BP Pulse Ox 07/14/21 11:32 37.1 C 124 H 20 132/94 92 07/14/21 09:00 39.5 C H 133 H 20 123/75 92 07/14/21 08:12 38.6 C H 134 H 20 158/84 H 92 07/14/21 07:28 39.4 C H 134 H 110/61 93 07/14/21 07:00 125 H 07/14/21 04:24 37.3 C 126 H 16 110/70 95
[2021-07-14] MEDS ORDERED: OPTIRAY 320 100ml IV ONE (15:26)
--- NOTE | 2021-07-14 15:51 | CT Scan Report ---
CT liver wo/w con CLINICAL HISTORY: elevated lfts TECHNIQUE: Helical axial images of the abdomen were obtained. Automated dose lowering techniques and/ or adjustment according to patient size were utilized for this exam. This exam was performed with an d without intravenous contrast. Comparison: None available at the time of this dictation. FINDINGS: Lower chest: There is a small left pleural effusion. Bilateral atelectasis is seen. Liver: Hepatic steatosis is noted. The liver is enlarged measuring 22 cm in craniocaudal dimension. Gallbladder and biliary tree: No calcified gallstones. Normal caliber wall. No intra- or extrahepatic biliary ductal dilation. Pancreas: Unremarkable, no focal lesions. Spleen: Unremarkable. Adrenals: Unremarkable. Kidneys and ureters: Unremarkable. Bowel: Unremarkable. Lymph nodes Retroperitoneal: Subcentimeter kyree hepatis and retroperitoneal nodes are seen. Mesenteric: Unremarkable. Peritoneum: Moderate ascites is seen. Vessels: Unremarkable. Abdominal wall: A fat-containing umbilical hernia is seen. Bones: Unremarkable. IMPRESSION: 1. Hepatic steatosis and hepatomegaly. 2. Moderate ascites. 3. Subcentimeter kyree hepatis and retroperitoneal nodes. 4. Partial visualization of bilateral atelectasis and small left pleural effusion. ACT 112: Negative or not required by law. Electronically signed by: Jose Allen M.D. 07/14/2021 3:50 PM
[2021-07-14] MEDS: PIPERACILLIN/TAZOBACTAM 3.375 GM in DEXTROSE 5% 100 ML IV SCH ×2 (17:58→23:56)
[2021-07-14] MEDS ORDERED: cefTRIAXone SODIUM 2,000 MG in DEXTROSE 5% 50 ML IV SCH (20:00)
[2021-07-14] MEDS: PANTOprazole 40 MG in SYRINGE 0 ML IV SCH (20:02)
[2021-07-14] MEDS: MELATONIN 3 MG TAB PO PRN (21:55)
[2021-07-15] MEDS: GABAPENTIN 600 MG TAB PO SCH ×3 (01:59→21:21)
[2021-07-15] MEDS: LORazepam 2 MG/1 ML VIAL IV PRN ×3 (05:53→21:30)
[2021-07-15 07:09] LABS: Hematocrit (blood only) 32.1 % (42-52); Hemoglobin 10.5 g/dL (14.0-18.0); Mean Corpuscular Hemoglobin 37.9 pg (25-34); Mean Corpuscular Hgb Conc 32.7 g/dL (32-36); Mean Corpuscular Volume 115.9 fL (80-100); Mean Platelet Volume 10.8 fL (7.4-10.4); Platelet Count 182 K/uL (130-400); RDW Coefficient of Variation 17.2 % (11.5-14.5); RDW Standard Deviation 72.6 fL (36.4-46.3); Red Blood Count 2.77 M/uL (4.7-6.1); White Blood Count 17.08 K/uL (4.8-10.8)
[2021-07-15 07:42] LABS: BUN Creatinine Ratio 7.8 (10-20); Calcium 7.3 mg/dl (8.5-10.1); Creatinine Clr Calc Pharmacy 206.9 ml/min; Est GFR (African American) 141.9 ml/min; Est GFR (Non-African American) 122.5 ml/min; Magnesium 1.5 mg/dl (1.7-2.4); Phosphorus 1.6 mg/dl (2.5-4.9); Potassium 3.9 mmol/L (3.5-5.1)
[2021-07-15] MEDS: PIPERACILLIN/TAZOBACTAM 3.375 GM in DEXTROSE 5% 100 ML IV SCH ×3 (08:28→23:54)
[2021-07-15] MEDS: guaiFENesin 600 MG TABCR PO SCH ×2 (08:30→19:29)
[2021-07-15] MEDS: DOXYCYCLINE HYCLATE 100 MG CAP PO SCH ×2 (08:30→19:30)
[2021-07-15] MEDS: PANTOprazole 40 MG in SYRINGE 0 ML IV SCH ×2 (08:30→19:28)
[2021-07-15] MEDS: NICOTINE 21 MG/24 HR TDSY TD SCH (08:30)
[2021-07-15] MEDS: FOLIC ACID 1 MG TAB PO SCH (08:30)
[2021-07-15] MEDS: MULTIVITAMIN TAB PO SCH (08:30)
[2021-07-15] MEDS ORDERED: SODIUM PHOSPHATE 3 MMOL/1 ML INFUSION IV STA (08:57)
[2021-07-15] MEDS ORDERED: SODIUM PHOSPHATE 30 MMOL in SODIUM CHLORIDE 0.9% 500 ML IV ONE (09:15)
[2021-07-15] MEDS: MAGNESIUM SULFATE / D5W 1 GM/100 ML BAG IV SCH ×2 (09:30→11:06)
--- NOTE | 2021-07-15 09:52 | Gastroenterology Progress Note ---
Date of Service July 15, 2021 Assessment & Plan (1) Acute alcoholic liver disease: (2) Abdominal pain: (3) Elevated LFTs: Plan: 41 y/o male w/ h/o ETOH abuse, admitted w/ abd pain, distention, labs concerning for alcoholic hepatitis, sepsis. Possible SBP. Liver CT w/ no sahil dil, + moderate ascites. Labs stable; LFTs trending every so slightly down. Abd soft but distended, having some nonfocal abd discomfort. - Diagnostic/therapeutic paracentesis today, please send fluid for albumin/protein, cell count and culture - UC/BC pending - Continue empiric ABX per primary service - Will initiate NAC - Sagar's DF on admit was 28. - Repeat LFTs, INR daily - Please replace electrolytes - Watch for ETOH withdrawal - Would avoid APAP > 2 gm daily, NSAIDs, hepatotoxins - Thiamine, folic acid supplementation - Will need OP w/u for cirrhosis including EGD - this was discussed with him as well as the significance of his underlying liver disease, associated with potential for significant morbidity/mortality, and the importance of initiating ETOH abstention Thank you for allowing us to participate in the care of this patient. Please call with any acute changes, questions or concerns. Please see addendum below with additional recommendation from my supervising physician. Admission and Anticipated Discharge Date Admission Date: July 13, 2021 Supervising Physician Co-Signing Physician Notes Attg add: I interviweed and examined pt, reviewed chart on labs. Pt has mild diffuse abd pain, o/w no complaints. On exam, he appears mildly tremulous but more comfortable. Labs show WBC 17 on Zosyn with neg blood cultures. Creat stable, no LFT"s today. Plan tap today r/o SBP. Although DF < 32, will consider NAC given low potential for toxicity. Encouraged alcohol cessation. Subjective Patient seen and examined, chart reviewed. No acute events overnight. Pt has some ongoing scattered abd discomfort, can be RUQ, LLQ. Feeling some weakness; hasn't been hungry. Is up out of bed in bedside chair this AM. Has had intermittent temps; tmax 37.8 C overnight. No BMs, + flatus. nausea, vomiting, hematemesis, melena, hematochezia, CP, SOB. Review of Systems Review of Systems: All systems reviewed & are unremarkable except as noted in HPI & below Physical Exam Constitutional: WD/WN, vitals as above Respiratory: O2 in place via NC, breathing is nonlabored, + crackles left base, no wheezing Cardiovascular: Rate/Rhythm: regular rhythm and + tachycardic Extremities: normal capillary refill; no edema Gastrointestinal (Abdomen): + distention, mild diffuse tenderness, soft, no rebound, guarding, + BS Skin: no rashes, warm and dry Psychiatric: A+Ox3, euthymic affect (No asterixis, tremor ) Results & Data ([facility]) Vital Signs (Past 12 Hours) Vital Signs Temp Pulse Pulse Pulse Resp BP BP 07/15/21 07:40 37.3 C 116 H 18 132/80 07/15/21 03:41 37.8 C H 112 H 112 H 16 119/69 07/14/21 23:19 37.6 C H 111 H 18 126/66 07/14/21 23:18 110 H Pulse Ox 07/15/21 07:40 93 07/15/21 03:41 95 07/14/21 23:19 97 07/14/21 23:18 Laboratory Results 07/15/21 07/15/21 07/14/21 Range/Units 06:31 06:31 17:54 WBC 17.08 H (4.8-10.8) K/uL RBC 2.77 L (4.7-6.1) M/uL Hgb 10.5 L (14.0-18.0) g/dL Hct 32.1 L (42-52) % MCV 115.9 H (80-100) fL MCH 37.9 H (25-34) pg MCHC 32.7 (32-36) g/dL RDW Std Deviation 72.6 H (36.4-46.3) fL RDW Coeff of Mac 17.2 H (11.5-14.5) % Plt Count 182 (130-400) K/uL MPV 10.8 H (7.4-10.4) fL Sodium 133 L (136-145) mmol/L Potassium 3.9 (3.5-5.1) mmol/L Chloride 97 L (98-107) mmol/L Carbon Dioxide 31 (21-32) mmol/L Anion Gap 5 (3-11) BUN 5 L (6-23) mg/dl Creatinine 0.64 (0.6-1.4) mg/dl Est Cr Clr Drug Dosing 206.9 ml/min Est GFR ( Amer) 141.9 ml/min Est GFR (Non-Af Amer) 122.5 ml/min BUN/Creatinine Ratio 7.8 L (10-20) Glucose 97 (70-99(Fasting)) mg/dl Calcium 7.3 L (8.5-10.1) mg/dl Phosphorus 1.6 L (2.5-4.9) mg/dl Magnesium 1.5 L (1.7-2.4) mg/dl B-Natriuretic Peptide (0-100) pg/ml Lipase (11-82) U/L Procalcitonin (0-0.5) ng/ml Hepatitis A IgM Ab Hep Bs Antigen (Neg) Hep B Core IgM Ab Hepatitis C Antibody (Neg) HCV RNA (PCR) IUs/ml HCV RNA PCR log IUs/ml 07/14/21 07/14/21 07/14/21 Range/Units 12:09 12:09 06:21 WBC (4.8-10.8) K/uL RBC (4.7-6.1) M/uL Hgb 11.3 L (14.0-18.0) g/dL Hct 34.0 L (42-52) % MCV (80-100) fL MCH (25-34) pg MCHC (32-36) g/dL RDW Std Deviation (36.4-46.3) fL RDW Coeff of Mac (11.5-14.5) % Plt Count (130-400) K/uL MPV (7.4-10.4) fL Sodium (136-145) mmol/L Potassium (3.5-5.1) mmol/L Chloride (98-107) mmol/L Carbon Dioxide (21-32) mmol/L Anion Gap (3-11) BUN (6-23) mg/dl Creatinine (0.6-1.4) mg/dl Est Cr Clr Drug Dosing ml/min Est GFR ( Amer) ml/min Est GFR (Non-Af Amer) ml/min BUN/Creatinine Ratio (10-20) Glucose (70-99(Fasting)) mg/dl Calcium (8.5-10.1) mg/dl Phosphorus (2.5-4.9) mg/dl Magnesium (1.7-2.4) mg/dl B-Natriuretic Peptide 121 H (0-100) pg/ml Lipase (11-82) U/L Procalcitonin (0-0.5) ng/ml Hepatitis A IgM Ab Pending Hep Bs Antigen (Neg) Hep B Core IgM Ab Pending Hepatitis C Antibody (Neg) HCV RNA (PCR) IUs/ml Pending HCV RNA PCR log IUs/ml Pending 07/14/21 07/14/21 07/14/21 Range/Units 06:21 06:21 06:08 WBC (4.8-10.8) K/uL RBC (4.7-6.1) M/uL Hgb (14.0-18.0) g/dL Hct (42-52) % MCV (80-100) fL MCH (25-34) pg MCHC (32-36) g/dL RDW Std Deviation (36.4-46.3) fL RDW Coeff of Mac (11.5-14.5) % Plt Count (130-400) K/uL MPV (7.4-10.4) fL Sodium (136-145) mmol/L Potassium (3.5-5.1) mmol/L Chloride (98-107) mmol/L Carbon Dioxide (21-32) mmol/L Anion Gap (3-11) BUN (6-23) mg/dl Creatinine (0.6-1.4) mg/dl Est Cr Clr Drug Dosing ml/min Est GFR ( Amer) ml/min Est GFR (Non-Af Amer) ml/min BUN/Creatinine Ratio (10-20) Glucose (70-99(Fasting)) mg/dl Calcium (8.5-10.1) mg/dl Phosphorus (2.5-4.9) mg/dl Magnesium (1.7-2.4) mg/dl B-Natriuretic Peptide (0-100) pg/ml Lipase (11-82) U/L Procalcitonin 0.29 (0-0.5) ng/ml Hepatitis A IgM Ab Hep Bs Antigen Neg (Neg) Hep B Core IgM Ab Hepatitis C Antibody Prelim Pos A (Neg) HCV RNA (PCR) IUs/ml HCV RNA PCR log IUs/ml Diagnostic Findings CT liver: Lower chest: There is a small left pleural effusion. Bilateral atelectasis is seen. Liver: Hepatic steatosis is noted. The liver is enlarged measuring 22 cm in craniocaudal dimension. Gallbladder and biliary tree: No calcified gallstones. Normal caliber wall. No intra- or extrahepatic biliary ductal dilation. Pancreas: Unremarkable, no focal lesions. Spleen: Unremarkable. Adrenals: Unremarkable. Kidneys and ureters: Unremarkable. Bowel: Unremarkable. Lymph nodes Retroperitoneal: Subcentimeter kyree hepatis and retroperitoneal nodes are seen. Mesenteric: Unremarkable. Peritoneum: Moderate ascites is seen. Vessels: Unremarkable. Abdominal wall: A fat-containing umbilical hernia is seen. Bones: Unremarkable. IMPRESSION: 1. Hepatic steatosis and hepatomegaly. 2. Moderate ascites. 3. Subcentimeter kyree hepatis and retroperitoneal nodes. 4. Partial visualization of bilateral atelectasis and small left pleural effusion.
[2021-07-15] MEDS: THIAMINE HCL 100 MG TAB PO SCH (10:14)
[2021-07-15] MEDS ORDERED: AcetylCYSTEINE 15,000 MG in DEXTROSE 5% 200 ML IV ONE (10:15)
[2021-07-15 11:37] LABS: INR 1.7 (0.9-1.1); Prothrombin Time 17.2 Seconds (9.0-12.0)
[2021-07-15] MEDS ORDERED: AcetylCYSTEINE 5,000 MG in DEXTROSE 5% 500 ML IV ONE (11:45)
--- NOTE | 2021-07-15 14:27 | Hospitalist Progress Note ---
Date of Service July 15, 2021 Assessment & Plan (1) Acute alcoholic liver disease: Plan: 41-year-old male with PMH of stomach ulcer status post surgery, HLD, ongoing tobacco/alcohol abuse [drinking heavily since last 15 months, 1 L of vodka daily] presented to our ED 07/13 due to increasing abdominal distention over the last few months, intermittent bright red blood per rectum [every 3 days per patient], cough symptoms since last 2 months with some shortness of breath. 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 He is being managed for the following: #. Alcoholic hepatitis #. Alcoholic cirrhosisnew diagnosis, Hepatitis panel pending, Outpatient HCV negative per record. #. Likely both UGI bleed and LGI bleed : Vit B12 level WNL, Folate level decreased, Iron panel with normal iron and ferritin #. Anemia: New onset, secondary to GI bleed. #. Impending alcohol withdrawal: Last drink on the afternoon of the day of arrival, drinks 1 L of vodka daily since last 15 months No prior history of alcohol withdrawal seizures per patient, last alcoholic drink on the afternoon of the day of arrival [07/13] Patient drinking heavily [see above] owing to failed relationship. Admitting CTAP: Cirrhotic liver with multiple small upper abdominal varicosities consistent with underlying portal hypertension. Small amount of ascites. Mild diffuse body wall edema. 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 Patient reports bright red blood intermittently. Differentials for GI bleed likely gastritis, PUD, possible variceal bleed, internal hemorrhoids. Or combination of them. Admitting hemoglobin 12.2, 10.5 today. Continue to monitor hemoglobin. AWSS is protocol, telemetry monitoring, PCU status. Thiamine. Folic acid replacement. GI onboard: Appreciate recommendation. Diagnostic/therapeutic paracentesis. Avoid Tylenol greater than 2 g daily. Outpatient follow-up with GI. NAC. Continue with PPI IV BD, advised alcohol cessation. #. Enteritis #. Sepsis POA - Tachycardic at admission, leucocytosis at admission, enteritis. Admitting WBC 22.8K, downtrending Admitting blood culture pending. No growth for 24 hours. Admitting CTAP: Possible thickening within the jejunal loops within the left side of the abdomen likely enteritis. Temperature getting better, avoid Tylenol greater than 2 g/day, as needed Tylenol, cooling blanket if necessary. Continue with 07/14 Zosyn #. Hypomagnesemia #. Hypophosphatemia #. Hyponatremia Magnesium and phosphorus repleted today. Admitting sodium 132, stable/minimally improving. Likely secondary to poor p.o. intake on the background of alcohol abuse. Monitor telemetry. Expect to improve once p.o. intake initiated. #. Bronchitis Patient reports cough for 2 months with brown sputum Continue with 07/14 doxycycline DVT prophylaxis: SCDs, GI bleed Full code Text document was generated using voice recognition software. It may contain grammatical or spelling errors. Kindly contact undersigned for clarification of any documentation item in question. Admission and Anticipated Discharge Date Admission Date: July 13, 2021 Subjective Patient seen and examined at bedside as a follow-up of newly diagnosed cirrhosis, impending alcohol withdrawal, likely upper GI bleed, likely SBP, possible sepsis, alcohol hepatitis. Patient lying in bed, on 3 L nasal cannula oxygen, looks better today, patient reports feeling better today, NAD, no new acute events overnight. Patient denies nausea/vomiting/headache/bowel movement. Patient reports gas. Patient also reports belly discomfort, and upon specifically asking denies any belly pain. Patient reports some cough. Denies chest pain/palpitations/sore throat/increased cough/increased shortness of breath/other review of symptoms. Physical Exam Physical Exam: GENERAL: Alert and oriented x3. mild distress, on 3L. HEENT: No pallor, no icterus. Pupils equal, round and reactive to light. Oral mucosa moist. NECK: No JVD, no neck masses. HEART: S1 and S2 heard. Regular rhythm. Tachycardia. No murmur, no gallop. RESPIRATORY SYSTEM: Normal AP diameter. No accessory muscle use. No wheezing, no crackles. ABDOMEN: Soft, bowel sounds present, nontender, + distention. CENTRAL NERVOUS SYSTEM: No facial droop. Speech is clear. Obeys simple commands. Moves extremities. EXTREMITIES: 1+ BLE edema, no erythema seen. Fine tremors of the hands noted. Results & Data Results & Data ([facility]) Vital Signs (Past 12 Hours) Vital Signs Temp Pulse Pulse Pulse Resp BP Pulse Ox 07/15/21 11:06 37.5 C 115 H 20 124/84 95 07/15/21 07:40 37.3 C 116 H 18 132/80 93 07/15/21 03:41 37.8 C H 112 H 112 H 16 119/69 95
--- NOTE | 2021-07-15 15:22 | Ultrasound Report ---
PROCEDURE: Ultrasound-Guided Diagnostic/Therapeutic Paracentesis CLINICAL HISTORY: new dx of ascites, r/o SBP MEDICATIONS: Subcutaneous Lidocaine 2%. PROCEDURE: The procedure itself was explained to the patient carefully. The patient was brought into the IR suite and a time-out was performed. The patient was positioned supine on the table. Preliminar y ultrasound of the abdomen was performed to determine a safe needle entry site. The most appropriat e approach for safe needle entry site was planned and the site for puncture was marked. The right low er quadrant was prepped and draped in the usual sterile fashion. Subcutaneous 2% lidocaine was used f or local anesthesia along the expected needle tract. Under ultrasound-guidance, an 5 [place] needle-sheath was inserted carefully into the peritoneal space towards the abdominal ascites fluid collection. The needle was removed and the sheath was conn ected to tubing and a vacuum suction device. A total of 3200 cc of serous ascites was aspirated. The sheath was removed and a sterile dressing applied. The patient tolerated the procedure well without i mmediate complications. Sample of ascites was sent for analysis. IMPRESSION: Ultrasound-guided diagnostic/therapeutic paracentesis. Electronically signed by: Jose Allen M.D. 07/15/2021 3:20 PM
[2021-07-15 15:25] LABS: Albumin Level 2.6 gm/dl (3.4-5.0); Bilirubin,Total 16.5 mg/dl (0.2-1.0); Total Protein 5.8 gm/dl (6.0-8.3)
[2021-07-15 15:29] LABS: Albumin Peritoneal Fluid < 1.5 gm/dl; Total Protein Peritoneal Fluid < 3.0 gm/dl
[2021-07-15] MEDS ORDERED: AcetylCYSTEINE 10,000 MG in DEXTROSE 5% 1,000 ML IV ONE (16:00)
[2021-07-15 16:17] LABS: Appearance Peritoneal Fluid CLEAR; Basophils, Fluid 0 %; Color Peritoneal Fluid YELLOW; Eosinophils, Fluid 0 %; Lymphocytes, Fluid 51 %; Mono,Macrophage,Mesothelial 31 %; Neutrophils, Fluid 18 %; RBC Peritoneal Fluid (A) < 3000 /uL; WBC Peritoneal Fluid (A) 301 /ul (0-300)
[2021-07-15 16:38] LABS: Bilirubin Direct 11.8 mg/dl (0-0.2)
[2021-07-15] MEDS: MELATONIN 3 MG TAB PO PRN (23:58)
[2021-07-16 06:12] LABS: Hematocrit (blood only) 31.9 % (42-52); Hemoglobin 10.6 g/dL (14.0-18.0); Mean Corpuscular Hemoglobin 37.6 pg (25-34); Mean Corpuscular Hgb Conc 33.2 g/dL (32-36); Mean Corpuscular Volume 113.1 fL (80-100); Mean Platelet Volume 10.7 fL (7.4-10.4); Platelet Count 166 K/uL (130-400); RDW Coefficient of Variation 16.9 % (11.5-14.5); RDW Standard Deviation 69.7 fL (36.4-46.3); Red Blood Count 2.82 M/uL (4.7-6.1); White Blood Count 15.61 K/uL (4.8-10.8)
[2021-07-16] MEDS: LORazepam 2 MG/1 ML VIAL IV PRN ×7 (06:18→23:47)
[2021-07-16 06:56] LABS: Albumin Level 2.3 gm/dl (3.4-5.0); BUN Creatinine Ratio 6.2 (10-20); Bilirubin,Total 17.1 mg/dl (0.2-1.0); Calcium 7.7 mg/dl (8.5-10.1); Creatinine Clr Calc Pharmacy 205.7 ml/min; Est GFR (Non-African American) 121.7 ml/min; Magnesium 1.4 mg/dl (1.7-2.4); Potassium 2.8 mmol/L (3.5-5.1); Total Protein 5.1 gm/dl (6.0-8.3)
[2021-07-16 06:57] LABS: Bilirubin Direct 12.4 mg/dl (0-0.2)
[2021-07-16] MEDS: PIPERACILLIN/TAZOBACTAM 3.375 GM in DEXTROSE 5% 100 ML IV SCH ×3 (09:06→23:32)
[2021-07-16] MEDS: DOXYCYCLINE HYCLATE 100 MG CAP PO SCH ×2 (09:21→21:45)
[2021-07-16] MEDS: FOLIC ACID 1 MG TAB PO SCH (09:21)
[2021-07-16] MEDS: NICOTINE 21 MG/24 HR TDSY TD SCH (09:22)
[2021-07-16] MEDS: MULTIVITAMIN TAB PO SCH (09:22)
[2021-07-16] MEDS: guaiFENesin 600 MG TABCR PO SCH ×2 (09:22→21:45)
[2021-07-16] MEDS: PANTOprazole 40 MG in SYRINGE 0 ML IV SCH ×2 (09:23→21:44)
[2021-07-16] MEDS: THIAMINE HCL 100 MG TAB PO SCH (09:23)
[2021-07-16] MEDS: GABAPENTIN 600 MG TAB PO SCH (09:25)
[2021-07-16 10:45] LABS: INR 2.1 (0.9-1.1); Prothrombin Time 21.9 Seconds (9.0-12.0)
[2021-07-16] MEDS: POTASSIUM CHLORIDE / WTR 10 MEQ/100 ML PLCT IV SCH ×3 (11:38→13:57)
--- NOTE | 2021-07-16 11:52 | Gastroenterology Progress Note ---
Date of Service July 16, 2021 Assessment & Plan (1) Acute alcoholic liver disease: (2) Abdominal pain: (3) Elevated LFTs: Plan: 41 y/o male w/ h/o ETOH abuse, admitted w/ abd pain, distention, labs concerning for alcoholic hepatitis. He received 21Hr NAC protocol, underwent us guided paracentesis w 3.2L ascites fluid removal (SAAG >1.1, Tprotein <3), no SBP. Maddrey Discriminant Function score today 62. - Start Prednisolone 40mg daily - Start Lasix 40mg, Spironolactone 100mg - Low salt diet (2g) - Replete K - Continue Thiamine, B1, FA supplements - Trend daily LFTs, INR - Watch for ETOH withdrawal, encourage pt to abstain from ETOH, consider rehab - Would avoid APAP > 2 gm daily, NSAIDs, hepatotoxins - Will need OP w/u for cirrhosis including EGD Admission and Anticipated Discharge Date Admission Date: July 13, 2021 Supervising Physician Co-Signing Physician Notes Attg add: I interviewed and examined pt. Pt is without complaints. On exam, he appears comfortable, but is tremulous. His abd exam is unchanged. He underwent tap, which showed no SBP, although done o nabx; SAAG c/w portal HTN. INR, bili have increased since yesterday; albumin is 2.3, creat remains normal. HCV ab pos, RNA pending Alc hep -- Increase in DF to > 32, MELD is 25 today. Encourage PO intake, will begin steroids, and will discontinue if no response by [place] day 7. HCV ab -- F/u RNA. HCV ab positivity not a contra-indication to steroid trial. Subjective Pt had 3.2L ascites removal yesterday - no signs of SBP. SAAG >1.1, Total protein <3. He denies CP, SOB, abd pain, n/v. Review of Systems Review of Systems: All systems reviewed & are unremarkable except as noted in HPI & below Physical Exam Constitutional: WD/WN, vitals as above well groomed, cooperative and comfortable Eyes: EOMs intact, icteric sclera ENMT: external ear and nose normal, oropharynx normal Respiratory: normal respiratory effort, lungs clear to auscultation Cardiovascular: RRR, no murmur, no edema Gastrointestinal (Abdomen): Distended abd, non tender, BS hypoactive Skin: no rashes, warm and dry + jaundice Neurologic: Motor/Sensory: no asterixis Psychiatric: A+Ox3, euthymic affect Lymphatic: no lymphedema Results & Data ([facility]) Vital Signs (Past 12 Hours) Vital Signs Temp Pulse Pulse Resp BP BP Pulse Ox 07/16/21 10:40 37 C 126 H 20 129/77 92 07/16/21 09:55 37 C 122 H 20 124/79 92 07/16/21 07:39 38 C H 129 H 20 119/72 92 07/16/21 06:05 37.5 C 121 H 96 07/16/21 03:15 38.2 C H 118 H 20 118/73 90
[2021-07-16] MEDS: prednisoLONE sod phosphate 15 MG/5 ML PO SCH (13:01)
--- NOTE | 2021-07-16 13:31 | Hospitalist Progress Note ---
Date of Service July 16, 2021 Assessment & Plan (1) Acute alcoholic liver disease: Plan: 41-year-old male with PMH of stomach ulcer status post surgery, HLD, ongoing tobacco/alcohol abuse [drinking heavily since last 15 months, 1 L of vodka daily] presented to our ED 07/13 due to increasing abdominal distention over the last few months, intermittent bright red blood per rectum [every 3 days per patient], cough symptoms since last 2 months with some shortness of breath. Patient was seen by PCP 2 days ago [employer] and was directed to ED but patient could not make it on the same day due to work issues. He is being managed for the following: #. Alcoholic hepatitis #. Alcoholic cirrhosisnew diagnosis, Hepatitis panel pending, Outpatient HCV negative per record. #. Likely both UGI bleed and LGI bleed : Vit B12 level WNL, Folate level decreased, Iron panel with normal iron and ferritin #. Anemia: New onset, secondary to GI bleed. #. Alcohol withdrawal: Last drink on the afternoon of the day of arrival, drinks 1 L of vodka daily since last 15 months No prior history of alcohol withdrawal seizures per patient, last alcoholic drink on the afternoon of the day of arrival [07/13] Patient drinking heavily [see above] owing to failed relationship. Admitting CTAP: Cirrhotic liver with multiple small upper abdominal varicosities consistent with underlying portal hypertension. Small amount of ascites. Mild diffuse body wall edema. Upon admission Maddrey's DF score of 35.3 points Patient reported melena 3 days [employer] along with bright red blood. Patient reports bright red blood intermittently. Differentials for GI bleed likely gastritis, PUD, possible variceal bleed, internal hemorrhoids. Or combination of them. Admitting hemoglobin 12.2, 10.5 today. Continue to monitor hemoglobin. AWSS is protocol, telemetry monitoring, PCU status. Thiamine. Folic acid replacement. GI onboard: Appreciate recommendation. Diagnostic/therapeutic paracentesis. Avoid Tylenol greater than 2 g daily. Outpatient follow-up with GI. NAC. Continue with PPI IV BD, advised alcohol cessation. #. Enteritis #. Sepsis POA - Tachycardic at admission, leucocytosis at admission, enteritis. Admitting WBC 22.8K, downtrending Admitting blood culture pending. No growth for 24 hours. Admitting CTAP: Possible thickening within the jejunal loops within the left side of the abdomen likely enteritis. Temperature getting better, avoid Tylenol greater than 2 g/day, as needed Tylenol, cooling blanket if necessary. Continue with 07/14 Zosyn #. Hypomagnesemia #. Hypophosphatemia #. Hyponatremia #. Tachycardia Monitor Lytes, Give back some IVFs #. Bronchitis Patient reports cough for 2 months with brown sputum Continue with 07/14 doxycycline Labs reviewed DVT prophylaxis: SCDs, GI bleed Full code ROS-No Headache, No Visual Changes, No Nausea, No Vomiting, No Fever, No Chills, No Neck Pain or Stiffness, No Chest Pain, No Palpitations, No SOB, No HANNON, No Cough, No Sputum, No Wheezing, No Abdominal Pain, No Diarrhea, No Hematemesis, No Hemoptysis, No Unexpected Weight Loss, No Flank pain, No Melena, No Hematochezia, No Frequency, No Urgency, No Burning, No Hematuria, No Rashes, No Diaphoresis. Appetite is Normal Physical Exam Gen-AAO x 3, NAD, Afebrile Head-NCAT, EOMI, PERRLA, Anicteric Sclera, No Posterior Pharyngeal Erythema Neck-Supple, No JVD, No Thyromegaly, No Masses, No LAD, No Bruits Lungs-Clear to Auscultation Bilaterally, No Rales, No Rhonchi, No Wheezing, No Crepitus Chest-No S4, +S1, +S2, No S3, No Murmurs, No Rubs, No Gallops, No Ectopy Abdomen-Soft, Bowel Sounds Present, Non Tender, Non Distended, No Hepatomegaly, No Splenomegaly, No Palpable Masses, No Rebound, No Rigidity, No Guarding Musculoskeletal-Full Range of Motion Bilaterally, No CVAT Extremities-No Cyanosis, No Clubbing, No Edema Nuero-Cranial Nerves II-XII grossly intact, Motor WNL, DTRs WNL, Strength WNL, Non Focal Psych-Odd Affect Admission and Anticipated Discharge Date Admission Date: July 13, 2021 Subjective Patient seen, resting comfortably in bed, no new issues. Results & Data Results & Data ([facility]) Vital Signs (Past 12 Hours) Vital Signs Temp Pulse Pulse Resp BP BP Pulse Ox 07/16/21 10:40 37 C 126 H 20 129/77 92 07/16/21 09:55 37 C 122 H 20 124/79 92 07/16/21 07:39 38 C H 129 H 20 119/72 92 07/16/21 06:05 37.5 C 121 H 96 07/16/21 03:15 38.2 C H 118 H 20 118/73 90
[2021-07-16] MEDS ORDERED: SODIUM CHLORIDE 0.9% 1000ML 1,000 ML IV ONE (13:35)
--- NOTE | 2021-07-16 16:37 | Electrocardiogram Report ---
Test Reason : Blood Pressure : / mmHG Vent. Rate : 114 BPM Atrial Rate : 114 BPM P-R Int : 164 ms QRS Dur : 094 ms QT Int : 338 ms P-R-T Axes : 044 074 -07 degrees QTc Int : 465 ms Sinus tachycardia RSR' or QR pattern in V1 suggests right ventricular conduction delay Nonspecific T wave abnormality Abnormal ECG When compared with ECG of 13-JUL-2021 18:22, No significant change Confirmed by Abraham Heredia ([id number]) on 07/16/2021 4:37:25 PM Referred By: Surendra Casey Confirmed By:Abraham Heredia
[2021-07-16] MEDS: MELATONIN 3 MG TAB PO PRN (21:45)
[2021-07-17] MEDS: LORazepam 2 MG/1 ML VIAL IV PRN ×2 (02:41→05:01)
[2021-07-17 06:59] LABS: Hematocrit (blood only) 32.2 % (42-52); Hemoglobin 10.5 g/dL (14.0-18.0); Mean Corpuscular Hemoglobin 37.4 pg (25-34); Mean Corpuscular Hgb Conc 32.6 g/dL (32-36); Mean Corpuscular Volume 114.6 fL (80-100); Mean Platelet Volume 10.7 fL (7.4-10.4); Platelet Count 188 K/uL (130-400); RDW Coefficient of Variation 17.1 % (11.5-14.5); RDW Standard Deviation 71.2 fL (36.4-46.3); Red Blood Count 2.81 M/uL (4.7-6.1); White Blood Count 14.71 K/uL (4.8-10.8)
[2021-07-17 07:31] LABS: BUN Creatinine Ratio 10.5 (10-20); Calcium 7.2 mg/dl (8.5-10.1); Creatinine Clr Calc Pharmacy 233.2 ml/min; Est GFR (African American) 148.9 ml/min; Est GFR (Non-African American) 128.4 ml/min; Potassium 3.2 mmol/L (3.5-5.1)
[2021-07-17] MEDS: THIAMINE HCL 100 MG TAB PO SCH (07:54)
[2021-07-17] MEDS: prednisoLONE sod phosphate 15 MG/5 ML PO SCH (07:55)
[2021-07-17] MEDS: PANTOprazole 40 MG in SYRINGE 0 ML IV SCH ×2 (07:55→20:24)
[2021-07-17] MEDS: SPIRONOLACTONE 100 MG TAB PO SCH (07:55)
[2021-07-17] MEDS: PIPERACILLIN/TAZOBACTAM 3.375 GM in DEXTROSE 5% 100 ML IV SCH ×3 (07:56→23:02)
[2021-07-17] MEDS: MULTIVITAMIN TAB PO SCH (07:56)
[2021-07-17] MEDS: DOXYCYCLINE HYCLATE 100 MG CAP PO SCH (07:57)
[2021-07-17] MEDS: guaiFENesin 600 MG TABCR PO SCH ×2 (07:59→20:24)
[2021-07-17] MEDS: FUROSEMIDE 40 MG TAB PO SCH (08:01)
[2021-07-17] MEDS: NICOTINE 21 MG/24 HR TDSY TD SCH (08:02)
[2021-07-17] MEDS: FOLIC ACID 1 MG TAB PO SCH (08:02)
[2021-07-17] MEDS ORDERED: GABAPENTIN 600 MG TAB PO SCH (10:15)
[2021-07-17 10:38] LABS: INR 2.2 (0.9-1.1); Prothrombin Time 22.8 Seconds (9.0-12.0)
[2021-07-17 11:17] LABS: Albumin Level 2.4 gm/dl (3.4-5.0); Total Protein 5.3 gm/dl (6.0-8.3)
[2021-07-17 11:18] LABS: Bilirubin Direct 12.9 mg/dl (0-0.2)
[2021-07-17] MEDS ORDERED: PHYTONADIONE 5 MG in DEXTROSE 5% 50 ML IV ONE (11:45)
[2021-07-17] MEDS: ALBUMIN 25% 100 mL 25 GM/100 ML VIAL IV SCH ×2 (12:11→13:49)
--- NOTE | 2021-07-17 12:41 | Gastroenterology Progress Note ---
Date of Service July 17, 2021 Assessment & Plan (1) Acute alcoholic liver disease: (2) Abdominal pain: (3) Elevated LFTs: Plan: 41 y/o male w/ h/o ETOH abuse, admitted w/ abd pain, distention, labs concerning for alcoholic hepatitis. He received 21Hr NAC protocol, underwent us guided paracentesis w 3.2L ascites fluid removal (SAAG >1.1, Tprotein <3), no SBP. Maddrey Discriminant Function score 62, started on Prednisolone 40mg daily. MELD 27 - Albumin IV support 50g x 1 dose today - Continue Prednisolone 40mg daily ; Calculate Lille score 7 days after starting steroids to see if there's benefits to continue vs DC'ing - Lasix 40mg, Spironolactone 100mg - Low salt diet (2g) - Continue Thiamine, B1, FA supplements - Trend daily LFTs, INR, monitor mental status. - Watch for ETOH withdrawal, encourage pt to abstain from ETOH, consider rehab - Would avoid APAP > 2 gm daily, NSAIDs, hepatotoxins - Will need OP w/u for cirrhosis including EGD Admission and Anticipated Discharge Date Admission Date: July 13, 2021 Supervising Physician Co-Signing Physician Notes No events or new complaints. On pred day 2 with rising bili and stable creat. Daily LFT's while inpt. Subjective Pt appears drowsy, sluggish in answering question. Received Ativan 4mg overnight for withdrawal symptoms. He denies abd pain, n/v. Review of Systems Review of Systems: All systems reviewed & are unremarkable except as noted in HPI & below Physical Exam Constitutional: WD/WN, vitals as above cooperative and comfortable Eyes: Icteric ENMT: external ear and nose normal, oropharynx normal Respiratory: normal respiratory effort, lungs clear to auscultation Cardiovascular: RRR, no murmur, no edema Gastrointestinal (Abdomen): Distended, non tender Skin: no rashes, warm and dry + jaundice Neurologic: Motor/Sensory: no asterixis Drowsy Lymphatic: no lymphedema Results & Data ([facility]) Vital Signs (Past 12 Hours) Vital Signs Temp Pulse Pulse Pulse Resp BP BP 07/17/21 11:25 37 C 105 H 24 115/71 07/17/21 08:00 103 H 07/17/21 07:41 36.7 C 104 H 24 07/17/21 05:17 36.9 C 105 H 22 07/17/21 02:33 36.5 C 106 H 22 125/72 BP Pulse Ox 07/17/21 11:25 93 07/17/21 08:00 07/17/21 07:41 118/71 91 07/17/21 05:17 114/73 91 07/17/21 02:33 92
[2021-07-17] MEDS: POTASSIUM CHLORIDE 20 MEQ/15 ML UDC PO SCH ×2 (13:48→20:23)
[2021-07-17] MEDS: CALCIUM CARBONATE 1250MG TAB PO SCH ×2 (13:49→20:24)
[2021-07-17] MEDS: MAGNESIUM OXIDE 400 MG TAB PO SCH ×2 (13:49→20:24)
[2021-07-17] MEDS: POT PHOSPHATE MONOBASIC W/ SOD TAB PO SCH ×3 (13:49→20:22)
[2021-07-17] MEDS: MELATONIN 3 MG TAB PO PRN (20:24)
[2021-07-17] MEDS ORDERED: LORazepam 1 MG TAB PO STA (20:27)
[2021-07-18] MEDS ORDERED: MELATONIN 3 MG TAB PO STA (01:41)
[2021-07-18] MEDS ORDERED: MELATONIN 3 MG TAB PO PRN (01:42)
[2021-07-18 07:01] LABS: Hematocrit (blood only) 35.3 % (42-52); Hemoglobin 11.4 g/dL (14.0-18.0); Mean Corpuscular Hemoglobin 37.1 pg (25-34); Mean Corpuscular Hgb Conc 32.3 g/dL (32-36); Mean Platelet Volume 10.6 fL (7.4-10.4); Platelet Count 247 K/uL (130-400); RDW Coefficient of Variation 17.4 % (11.5-14.5); RDW Standard Deviation 72.5 fL (36.4-46.3); Red Blood Count 3.07 M/uL (4.7-6.1); White Blood Count 17.14 K/uL (4.8-10.8)
[2021-07-18 07:18] LABS: Albumin Globulin Ratio 0.8 (0.9-2); Albumin Level 2.6 gm/dl (3.4-5.0); BUN Creatinine Ratio 13.6 (10-20); Bilirubin,Total 16.9 mg/dl (0.2-1.0); Calcium 7.5 mg/dl (8.5-10.1); Creatinine Clr Calc Pharmacy 225.3 ml/min; Est GFR (African American) 146.8 ml/min; Est GFR (Non-African American) 126.6 ml/min; Globulin 3.1 gm/dl (2.5-4.0); Magnesium 1.6 mg/dl (1.7-2.4); Phosphorus 1.9 mg/dl (2.5-4.9); Potassium 3.5 mmol/L (3.5-5.1); Total Protein 5.7 gm/dl (6.0-8.3)
[2021-07-18] MEDS: PIPERACILLIN/TAZOBACTAM 3.375 GM in DEXTROSE 5% 100 ML IV SCH (08:16)
[2021-07-18] MEDS: guaiFENesin 600 MG TABCR PO SCH (08:17)
[2021-07-18] MEDS: MAGNESIUM OXIDE 400 MG TAB PO SCH ×2 (08:17→14:00)
[2021-07-18] MEDS: CALCIUM CARBONATE 1250MG TAB PO SCH (08:17)
[2021-07-18] MEDS: PANTOprazole 40 MG in SYRINGE 0 ML IV SCH (08:17)
[2021-07-18] MEDS: FUROSEMIDE 40 MG TAB PO SCH (08:18)
[2021-07-18] MEDS: NICOTINE 21 MG/24 HR TDSY TD SCH (08:18)
[2021-07-18] MEDS: FOLIC ACID 1 MG TAB PO SCH (08:19)
[2021-07-18] MEDS: THIAMINE HCL 100 MG TAB PO SCH (08:20)
[2021-07-18] MEDS: SPIRONOLACTONE 100 MG TAB PO SCH (08:21)
[2021-07-18] MEDS: POTASSIUM CHLORIDE 20 MEQ/15 ML UDC PO SCH ×2 (08:21→14:05)
[2021-07-18] MEDS: prednisoLONE sod phosphate 15 MG/5 ML PO SCH (08:21)
[2021-07-18] MEDS: POT PHOSPHATE MONOBASIC W/ SOD TAB PO SCH ×2 (08:21→14:00)
[2021-07-18] MEDS: MULTIVITAMIN TAB PO SCH (08:24)
--- NOTE | 2021-07-18 09:55 | Discharge Summary ---
Date of Service July 18, 2021 Admission HPI Per Admitting Provider History obtained from patient and records. Medical history significant for stomach ulcer status post surgery, hyperlipidemia, ongoing tobacco/alcohol abuse. Patient has not been well for about a year. Admits to drinking alcohol in excess following a failed relationship. Denies suicidality. Patient noted increasing abdominal distention with tolerable abdominal pain over the last few months. Intermittent bright red blood per rectum, alternating constipation/diarrhea as per patient. Junky cough symptoms the last 2 months with some shortness of breath. No actual chest pain. Denies aspiration. Possible COVID-19 contacts at work as per patient. Patient has received COVID-19 vaccination. Patient told by some work mates that he was jaundiced. 3 days ago, patient noted melena symptoms along with bright red blood per rectum. Denies OTC NSAID intake. Patient consulted PCP's office 2 days ago. Concern for alcoholic hepatitis with ascites as per note. Abnormal outpatient labs noted as follows: WBC 19.5, hemoglobin 11.6, hematocrit 34, INR 1.2, AST 195, alk phos 466. Outpatient HCV antibody screen was negative. ER consultation recommended. Patient unable to comply right away due to work issues. Last alcoholic drink was this afternoon. No prior history of alcohol withdrawal seizures as per patient. IV Ceftriaxone given at the ER. 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[employer] Admission Exam Per Admitting Provider GENERAL: Comfortable, obese, no respiratory distress SKIN: jaundiced, warm HEENT: Pale palpebral conjunctivae, no ptosis, icteric sclerae, dry buccal mucosa NECK : Supple, short neck, no tenderness CHEST : Decreased breath sounds, occasional expiratory wheezes , no tenderness HEART : Tachycardic, no obvious murmurs ABDOMEN: distention, epigastric tenderness EXTREMITIES : Minimal LE swelling, no LE tenderness, no other conspicuous deformities noted NEUROLOGIC : Coherent, no facial asymmetry, no other gross focality Principal Diagnosis Acute alcoholic liver disease: #. Alcoholic hepatitis #. Alcoholic cirrhosisnew diagnosis, Hepatitis panel pending, Outpatient HCV negative per record. #. Likely both UGI bleed and LGI bleed :Vit B12 level WNL, Folate level decreased, Iron panel with normal iron and ferritin #. Anemia:New onset, secondary to GI bleed. #. Alcohol withdrawal: Last drink on the afternoon of the day of arrival, drinks 1 L of vodka daily since last 15 months #. Enteritis #. Sepsis POA -Tachycardic at admission, leucocytosis at admission, enteritis. #. Hypomagnesemia #. Hypophosphatemia #. Hyponatremia #. Tachycardia #. Bronchitis Discharge Data Allergies Allergy/AdvReac Type Severity Reaction Status Date / Time No Known Allergies Allergy Verified 07/13/21 18:18 Consultations 07/13/21 20:11 ED Decision to Admit Stat 07/13/21 23:29 Consult Gastroenterology Routine Current Diagnoses Alcoholic hepatitis without ascites (07/13/21) Unspecified abdominal pain (07/13/21) Other specified abnormal findings of blood chemistry (07/13/21) Allergies No Known Allergies Allergy (Verified 07/13/21 18:18) Height/Weight/Isolation Height 6 ft 2 in Weight 116 kg Chemistry 07/17/21 07/18/21 06:23 06:32 Sodium 135 L 134 L Potassium 3.2 L 3.5 Chloride 98 100 Carbon Dioxide 32 31 Anion Gap 5 3 BUN 6 8 Creatinine 0.57 L 0.59 L Glucose 109 H 87 Microbiology 07/14/21 05:10 Urine,Clean Catch Urine Culture - Final No growth - less than 1,000 colonies/mL. Ordered Studies 07/13/21 18:15 CT abd pelvis IV con only Stat 07/14/21 14:11 CT liver wo/w con Routine 07/15/21 14:00 US paracentesis abd w/image Routine Hospital Course (1) Acute alcoholic liver disease: 41-year-old male with PMH of stomach ulcer status post surgery, HLD, ongoing tobacco/alcohol abuse [drinking heavily since last 15 months, 1 L of vodka daily] presented to our ED 07/13 due to increasing abdominal distention over the last few months, intermittent bright red blood per rectum [every 3 days per patient], cough symptoms since last 2 months with some shortness of breath. Patient was seen by PCP 2 days ago [employer] and was directed to ED but patient could not make it on the same day due to work issues. He is being managed for the following: #. Alcoholic hepatitis #. Alcoholic cirrhosisnew diagnosis, Hepatitis panel pending, Outpatient HCV negative per record. #. Likely both UGI bleed and LGI bleed : Vit B12 level WNL, Folate level decreased, Iron panel with normal iron and ferritin #. Anemia: New onset, secondary to GI bleed. #. Alcohol withdrawal: Last drink on the afternoon of the day of arrival, drinks 1 L of vodka daily since last 15 months No prior history of alcohol withdrawal seizures per patient, last alcoholic drink on the afternoon of the day of arrival [07/13] Patient drinking heavily [see above] owing to failed relationship. Admitting CTAP: Cirrhotic liver with multiple small upper abdominal varicosities consistent with underlying portal hypertension. Small amount of ascites. Mild diffuse body wall edema. Upon admission Maddrey's DF score of 35.3 points Patient reported melena 3 days [employer] along with bright red blood. Patient reports bright red blood intermittently. Differentials for GI bleed likely gastritis, PUD, possible variceal bleed, internal hemorrhoids. Or combination of them. Admitting hemoglobin 12.2, 10.5 today. Continue to monitor hemoglobin. AWSS is protocol, telemetry monitoring, PCU status. Thiamine. Folic acid rep lacement. GI onboard: Appreciate recommendation. Diagnostic/therapeutic paracentesis. Avoid Tylenol greater than 2 g daily. Outpatient follow-up with GI. NAC. Continue with PPI IV BD, advised alcohol cessation. #. Enteritis #. Sepsis POA - Tachycardic at admission, leucocytosis at admission, enteritis. Admitting WBC 22.8K, downtrending Admitting blood culture pending. No growth for 24 hours. Admitting CTAP: Possible thickening within the jejunal loops within the left side of the abdomen likely enteritis. Temperature getting better, avoid Tylenol greater than 2 g/day, as needed Tylenol, cooling blanket if necessary. DC on Augmentin and Doxy, Mag, Ca, serax, Thiamine, Folate, MVit, phos #. Hypomagnesemia #. Hypophosphatemia #. Hyponatremia #. Tachycardia Monitor Lytes, Give back some IVFs #. Bronchitis Patient reports cough for 2 months with brown sputum Continue with 07/14 doxycycline Labs reviewed DVT prophylaxis: SCDs, GI bleed Full code ROS-No Headache, No Visual Changes, No Nausea, No Vomiting, No Fever, No Chills, No Neck Pain or Stiffness, No Chest Pain, No Palpitations, No SOB, No HANNON, No Cough, No Sputum, No Wheezing, No Abdominal Pain, No Diarrhea, No Hematemesis, No Hemoptysis, No Unexpected Weight Loss, No Flank pain, No Melena, No Hematochezia, No Frequency, No Urgency, No Burning, No Hematuria, No Rashes, No Diaphoresis. Appetite is Normal Physical Exam Gen-AAO x 3, NAD, Afebrile Head-NCAT, EOMI, PERRLA, Anicteric Sclera, No Posterior Pharyngeal Erythema Neck-Supple, No JVD, No Thyromegaly, No Masses, No LAD, No Bruits Lungs-Clear to Auscultation Bilaterally, No Rales, No Rhonchi, No Wheezing, No Crepitus Chest-No S4, +S1, +S2, No S3, No Murmurs, No Rubs, No Gallops, No Ectopy Abdomen-Soft, Bowel Sounds Present, Non Tender, Non Distended, No Hepatomegaly, No Splenomegaly, No Palpable Masses, No Rebound, No Rigidity, No Guarding Musculoskeletal-Full Range of Motion Bilaterally, No CVAT Extremities-No Cyanosis, No Clubbing, No Edema Nuero-Cranial Nerves II-XII grossly intact, Motor WNL, DTRs WNL, Strength WNL, Non Focal Psych-Odd Affect Total Time Total Time Spent Total Time Spent (In Minutes): 45 mins Total Time Includes: Examination of the Patient, Discharge Planning, Medication Reconciliation and Communication With Other Providers Discharge Plan Discharge Items Patient Disposition: Home - Self-Care Reason For Visit: GI BLEED Discharge Diagnosis: Acute alcoholic liver disease: #. Alcoholic hepatitis #. Alcoholic cirrhosisnew diagnosis, Hepatitis panel pending, Outpatient HCV negative per record. #. Likely both UGI bleed and LGI bleed :Vit B12 level WNL, Folate level decreased, Iron panel with normal iron and ferritin #. Anemia:New onset, secondary to GI bleed. #. Alcohol withdrawal: Last drink on the afternoon of the day of arrival, drinks 1 L of vodka daily since last 15 months #. Enteritis #. Sepsis POA -Tachycardic at admission, leucocytosis at admission, enteritis. #. Hypomagnesemia #. Hypophosphatemia #. Hyponatremia #. Tachycardia #. Bronchitis Condition on Discharge: Fair Health Concerns: Do not drink, you will from it Goals: Get into rehab Activity: Resume your previous activity Lifting: None Bathing: No limitations Sexual Activity: When tolerated Exercise/Sports: None Driving/Machine Use: Resume after PCP visit Weightbearing: Full weightbearing Non-emergency contact: Primary Care Provider, [employer] and Facilities Locator Call non-emergency contact if: you have any medication questions Follow-up/Referrals: Boy Doll MD [Physician] - Kandice Wheat CRNP [Nurse Practitioner] - (First open and with GI attending) Surendra Casey DO [Primary Care Provider] - Diet: Regular Addtl Attending Provider Instructions: Get yourself into Drug and Alcohol rehab emilie Pending Studies at Discharge: Yes Studies:: 2 step Stand-Alone Forms: My Anaergia, Smoking Cessation Medications and DC Order Prescriptions: New spironolactone 100 mg Tablet 100 mg PO QAM Qty: 30 RF: 0 furosemide 40 mg Tablet 40 mg PO QAM Qty: 30 RF: 0 Phospha 250 Neutral 250 mg Tablet 1 tab PO BID Qty: 60 RF: 0 magnesium oxide 400 mg (241.3 mg magnesium) Tablet 400 mg PO TID Qty: 14 RF: 0 folic acid 1 mg Tablet 1 mg PO QAM Qty: 30 RF: 0 multivitamin with folic acid [Daily-Ursula (with folic acid)] 400 mcg Tablet 1 tab PO QAM Qty: 90 RF: 0 thiamine HCl (vitamin B1) 100 mg Tablet 100 mg PO QAM Qty: 30 RF: 0 prednisone 10 mg tablet 10 mg PO DAILY Qty: 42 RF: 0 amoxicillin 875 mg tablet 875 mg PO BID Qty: 20 RF: 0 oxazepam 30 mg capsule 30 mg PO Q8H PRN (Reason: alcohol withdrawal) Qty: 30 RF: 0 Continued albuterol sulfate 90 mcg/actuation HFA aerosol inhaler 2 puff INHALATION QID PRN (Reason: Shortness Of Breath Or Wheezing) RF: 0 Discharge Orders: Discharge Order (Routine); Ordered 07/18/21 Ordered By: Petar Lewis Admission Data Admit Date/Time: 07/13/21 21:58 Attending Provider: Petar Lewis Admit Provider: Mike Stewart Primary Care Provider: Surendra Casey Other Providers: Mike Stewart ; Priyanka Millard ; Anastasia Pinto ; Juliana Tubbs ; Judith Shannon ; Ronn Hennessy ; Ankit Smith ; Boy Doll ; Rene oTbar ; Freya Aguilar ; Ramona Hogue ; Kandice Wheat ; Eula Early ; Pao Goff
[2021-07-18 10:38] LABS: INR 1.6 (0.9-1.1); Prothrombin Time 16.6 Seconds (9.0-12.0)
[2021-07-18 11:10] LABS: Hepatitis A Antibody IgM NON-REACTIVE (NON-REACTIVE); Hepatitis B Core Antibody IgM NON-REACTIVE (NON-REACTIVE); Hepatitis C Vira RNA (Log) PCR <1.18 NOT DETECTED Log IU/mL (NOT DETECTED); Hepatitis C Viral RNA by PCR <15 NOT DETECTED IU/mL (NOT DETECTED)
--- NOTE | 2021-07-18 11:34 | Gastroenterology Progress Note ---
Date of Service July 18, 2021 Assessment & Plan (1) Acute alcoholic liver disease: (2) Abdominal pain: (3) Elevated LFTs: Plan: 41 y/o male w/ h/o ETOH abuse, admitted w/ abd pain, distention, labs concerning for alcoholic hepatitis. He received 21Hr NAC protocol, tap yesterday w/ 3.2 L fluid removal (SAAG >1.1, Tprotein <3), portal HTN, no SBP. Maddrey's DF 62 and was started on Prednisolone 40mg daily. MELD 27->24 today. Bili and INR slightly down, cr stable. Hep C AB pos but RNA not detected. - Pt tells me he is to be DC'd today - Check US ABD for ascites - if has re-accumulated sufficient amt, will arrange outpt tap - Continue Prednisolone 40mg daily; Calculate Lille score 7 days after starting steroids to see if there's benefits to continue vs DC'ing - Lasix 40mg, Spironolactone 100mg - Low salt diet (2g) - Continue Thiamine, B1, FA supplements - Trend daily LFTs, INR, monitor mental status while admitted - Watch for ETOH withdrawal, encourage pt to abstain from ETOH, consider rehab - Would avoid APAP > 2 gm daily, NSAIDs, hepatotoxins - Will need OP w/u for cirrhosis including EGD; this is being arranged Admission and Anticipated Discharge Date Admission Date: July 13, 2021 Supervising Physician Co-Signing Physician Notes Pt with improvement in bili. Uls shows only small amt ascites. OK for d/c on prednisolone, diuretics. Will need labs next week to check LFT's, BMP. Subjective Patient seen and examined, chart reviewed. He feels slightly better; no acute events overnight; remains afebrile. Tolerating his diet. Still having some diffuse abd discomfort, feels like he is filling up with ascites again. Stools are formed/loose, brown. No melena, hematochezia, hematemesis, CP, SOB. Review of Systems Review of Systems: All systems reviewed & are unremarkable except as noted in HPI & below Physical Exam Constitutional: WD/WN, vitals as above Eyes: icteric Respiratory: normal respiratory effort, lungs clear to auscultation Cardiovascular: Rate/Rhythm: regular rhythm and + tachycardic Extremities: normal capillary refill; no edema Gastrointestinal (Abdomen): BS x 4 quadrants, soft, mild distention, mild diffuse tenderness Skin: no rashes, warm and dry Psychiatric: A+Ox3, euthymic affect (No asterixis, tremor ) Results & Data ([facility]) Vital Signs (Past 12 Hours) Vital Signs Temp Pulse Pulse Pulse Pulse Resp Resp 07/18/21 10:24 117 H 109 H 101 H 22 07/18/21 08:00 36.8 C 72 18 07/18/21 03:14 36.8 C 94 H 18 Resp Resp BP Pulse Ox Pulse Ox Pulse Ox Pulse Ox 07/18/21 10:24 20 20 93 91 90 07/18/21 08:00 129/60 95 07/18/21 03:14 107/66 95 Laboratory Results 07/18/21 07/18/21 07/18/21 Range/Units 09:52 06:32 06:32 WBC 17.14 H (4.8-10.8) K/uL RBC 3.07 L (4.7-6.1) M/uL Hgb 11.4 L (14.0-18.0) g/dL Hct 35.3 L (42-52) % MCV 115.0 H (80-100) fL MCH 37.1 H (25-34) pg MCHC 32.3 (32-36) g/dL RDW Std Deviation 72.5 H (36.4-46.3) fL RDW Coeff of Mac 17.4 H (11.5-14.5) % Plt Count 247 (130-400) K/uL MPV 10.6 H (7.4-10.4) fL PT 16.6 H (9.0-12.0) Seconds INR 1.6 H (0.9-1.1) Sodium 134 L (136-145) mmol/L Potassium 3.5 (3.5-5.1) mmol/L Chloride 100 (98-107) mmol/L Carbon Dioxide 31 (21-32) mmol/L Anion Gap 3 (3-11) BUN 8 (6-23) mg/dl Creatinine 0.59 L (0.6-1.4) mg/dl Est Cr Clr Drug Dosing 225.3 ml/min Est GFR ( Amer) 146.8 ml/min Est GFR (Non-Af Amer) 126.6 ml/min BUN/Creatinine Ratio 13.6 (10-20) Glucose 87 (70-99(Fasting)) mg/dl Calcium 7.5 L (8.5-10.1) mg/dl Ionized Calcium (1.12-1.32) mmol/L Phosphorus 1.9 L (2.5-4.9) mg/dl Magnesium 1.6 L (1.7-2.4) mg/dl Total Bilirubin 16.9 H (0.2-1.0) mg/dl AST 76 H (13-39) U/L ALT 16 (7-52) U/L Alkaline Phosphatase 198 H (34-104) U/L Total Protein 5.7 L (6.0-8.3) gm/dl Albumin 2.6 L (3.4-5.0) gm/dl Globulin 3.1 (2.5-4.0) gm/dl Albumin/Globulin Ratio 0.8 L (0.9-2) Hepatitis A IgM Ab (NON-REACTIVE) Hep B Core IgM Ab (NON-REACTIVE) HCV RNA (PCR) IUs/ml (NOT DETECTED) IU/mL HCV RNA PCR log IUs/ml (NOT DETECTED) Log IU/mL Miscellaneous Test 07/18/21 07/17/21 07/14/21 Range/Units 06:32 12:13 06:21 WBC (4.8-10.8) K/uL RBC (4.7-6.1) M/uL Hgb (14.0-18.0) g/dL Hct (42-52) % MCV (80-100) fL MCH (25-34) pg MCHC (32-36) g/dL RDW Std Deviation (36.4-46.3) fL RDW Coeff of Mac (11.5-14.5) % Plt Count (130-400) K/uL MPV (7.4-10.4) fL PT (9.0-12.0) Seconds INR (0.9-1.1) Sodium (136-145) mmol/L Potassium (3.5-5.1) mmol/L Chloride (98-107) mmol/L Carbon Dioxide (21-32) mmol/L Anion Gap (3-11) BUN (6-23) mg/dl Creatinine (0.6-1.4) mg/dl Est Cr Clr Drug Dosing ml/min Est GFR ( Amer) ml/min Est GFR (Non-Af Amer) ml/min BUN/Creatinine Ratio (10-20) Glucose (70-99(Fasting)) mg/dl Calcium (8.5-10.1) mg/dl Ionized Calcium 1.10 L (1.12-1.32) mmol/L Phosphorus (2.5-4.9) mg/dl Magnesium (1.7-2.4) mg/dl Total Bilirubin (0.2-1.0) mg/dl AST (13-39) U/L ALT (7-52) U/L Alkaline Phosphatase (34-104) U/L Total Protein (6.0-8.3) gm/dl Albumin (3.4-5.0) gm/dl Globulin (2.5-4.0) gm/dl Albumin/Globulin Ratio (0.9-2) Hepatitis A IgM Ab NON-REACTIVE (NON-REACTIVE) Hep B Core IgM Ab NON-REACTIVE (NON-REACTIVE) HCV RNA (PCR) IUs/ml <15 NOT DETECTED (NOT DETECTED) IU/mL HCV RNA PCR log IUs/ml <1.18 NOT DETECTED (NOT DETECTED) Log IU/mL Miscellaneous Test REPORT
--- NOTE | 2021-07-18 11:55 | Ultrasound Report ---
US abdomen ltd ascites CLINICAL HISTORY: ascites check COMPARISON STUDY: CT of the abdomen July 14, 2021. Ultrasound guided paracentesis July 15, 2021. TECHNIQUE: Sonography of the abdomen and pelvis was performed to assess ascites. FINDINGS: A small amount of ascites is noted within the abdomen and pelvis. Left pleural effusion is incidentally noted. IMPRESSION: Small amount of ascites. ACT 112: Negative or not required by law. Electronically signed by: Marcus Rouse M.D. 07/18/2021 11:53 AM
== END 2021-07-18 15:00 | disposition home or self-care (01) | DRG 432 ==
LOC: ED 18:02 → 2N 21:58 → SUATTDRO 21:58 → 2N 22:59 → 2S 07-14 10:16

== ENCOUNTER 2021-08-03 13:03 | Inpatient (IN) ==
[2021-08-03] MEDS ORDERED: LORazepam 2 MG/1 ML VIAL IV STA (13:18)
[2021-08-03] MEDS ORDERED: MULTI-VITAMIN INFUSION 10 ML, THIAMINE HCL 100 MG, FOLIC ACID 1 MG in SODIUM CHLORIDE 0... IV ONE (13:18)
[2021-08-03] MEDS ORDERED: GABAPENTIN 1200MG ALCOHOL WITHDRAWAL LOAD PO STA (13:30)
[2021-08-03] MEDS ORDERED: GABAPENTIN 600 MG TAB PO ONE (13:30)
[2021-08-03 14:07] LABS: Basophils # (auto) 0.05 K/uL (0-0.2); Basophils % (auto) 0.2 %; Hematocrit (blood only) 34.5 % (42-52); Hemoglobin 11.7 g/dL (14.0-18.0); Immature Granulocytes # (auto) 0.08 K/uL (0.00-0.02); Immature Granulocytes % (auto) 0.4 %; Lymphocytes % (auto) 9.7 %; Mean Corpuscular Hemoglobin 38.2 pg (25-34); Mean Corpuscular Hgb Conc 33.9 g/dL (32-36); Mean Corpuscular Volume 112.7 fL (80-100); Mean Platelet Volume 10.5 fL (7.4-10.4); Monocytes # (auto) 1.23 K/uL (0.11-0.59); Neutrophils # (auto) 17.11 K/uL (1.4-6.5); Neutrophils % (auto) 82.7 %; Platelet Count 158 K/uL (130-400); RDW Coefficient of Variation 16.3 % (11.5-14.5); RDW Standard Deviation 66.6 fL (36.4-46.3); Red Blood Count 3.06 M/uL (4.7-6.1); White Blood Count 20.67 K/uL (4.8-10.8)
[2021-08-03 14:16] LABS: INR 1.6 (0.9-1.1); Prothrombin Time 16.7 Seconds (9.0-12.0)
[2021-08-03] MEDS ORDERED: ATIVAN IV ALCOHOL WITHDRAWL IV PRN (14:20)
[2021-08-03] MEDS ORDERED: LORazepam 2 MG/1 ML VIAL IV PRN ×4 (14:20)
[2021-08-03 14:25] LABS: Albumin Globulin Ratio 0.8 (0.9-2); Albumin Level 3.3 gm/dl (3.4-5.0); BUN Creatinine Ratio 19.3 (10-20); Bilirubin,Total 9.4 mg/dl (0.2-1.0); Calcium 8.1 mg/dl (8.5-10.1); Creatinine Clr Calc Pharmacy 227.5 ml/min; Est GFR (African American) 148.9 ml/min; Est GFR (Non-African American) 128.4 ml/min; Globulin 4.1 gm/dl (2.5-4.0); Magnesium 1.5 mg/dl (1.7-2.4); Potassium 3.8 mmol/L (3.5-5.1); Total Protein 7.4 gm/dl (6.0-8.3)
[2021-08-03 14:58] LABS: Macrocytosis Present; Polychromasia 1+
--- NOTE | 2021-08-03 15:20 | History & Physical Report ---
Date of Service August 03, 2021 Assessment & Plan (1) Alcohol withdrawal: Plan: Currently tachycardic and hypertensive. Sending to PCU for close monitoring. Last drink was on 07/31 prior to going into rehab. His rehab program discharged him within 24-48 hours because he was too high acuity to be at their facility. He is not clear but states he might be able to return if certain criteria are met. For now he wants to proceed with an inpatient rehabilitation program and wants to stay, withdraw, and then go somewhere when he is more stable. He has been placed on the gabapentin protocol and is being given Ativan as needed. Of note, the initial home med rec states that he was taking Xanax 0.5mg TID scheduled, however, this was not supported by the PDMP. Xanax was taken off his home medication list as a regularly prescribed medication. Supportive care. (2) Alcohol abuse: Plan: Plan as above. (3) Acute alcoholic liver disease: Plan: Recent hospital stay with similar numbers, although total bilirubin is improved. His Maddrey's score is around 32. MELD 23. During his last visit, three weeks ago, he received NAC for 21 hours along with steroids. Will consult GI and continue Lasix, spironolactone, low salt diet (2gm), thiamine, folate supplementation. APAP up to 2grams is ordered for his knees and for general pain or fever. He is still needing outpatient follow-up with GI for EGD. For his ascites, will confirm this is present with an us. If present, will order paracentesis for am. (4) Abdominal pain: Plan: Likely related to enlarging ascites. Tylenol for now pending us and possible paracentesis in am. (5) Hematochezia: Plan: Recent report of this as outpatient last week. H/H stable and he is chronically anemic without changes from baseline. Further workup per GI (6) Hyponatremia: Plan: Likely related to hypervolemic state and poor PO intake recently. (7) Hypomagnesemia: Plan: Patient reports ongoing loose stools and reports compliance with TID Mg supplementation. Replace with IV supplementation and repeat in am. (8) Coagulopathy: Plan: 2/2 liver disease. (9) Smoker: Plan: Nicotine patch PRN (10) DVT prophylaxis: Plan: SCDs, hold chemoprophylaxis given upcoming possible procedure in am and recent hematochezia. Full Code Dispo-PCU with transition directly into an inpatient rehab program. Appreciate case management assistance with this transition. Mirlande Salcido DO [facility] Hospitalist History of Present Illness Chief Complaint: came from rehab Primary Care Provider: Surendra Casey DO 41 yo alcoholic cirrhotic presents from inpatient alcohol rehab facility, [place], reporting he was discharged because he was told he was too sick to be there. He is exhibiting signs of alcohol withdrawal. He has no evidence of active bleeding, but reports bright red blood per rectum last week. He states is looked like "a puddle of blood." He denies vomiting and no hematemesis. Loose watery stool-not on laxatives +abdominal pain, general, feels like a tightening like having a belt that is too tight. +wt gain, unknown amount. Has not eating for two days. Has bilateral knee pain, causing him to be unable to walk, minimizing activity. Using nothing for pain; just using ice. Last alcoholic drink was 07/31. No fevers, no chills. Wants to withdraw from alcohol and return to inpatient rehab. He has late stage cirrhosis with ascites and recently underwent a paracentesis 3 weeks ago with 3L take off at that time. He takes Lasix and aldactone regularly. His Mag is low at 1.6 and he takes MgOx replacement 400mg TID. Allergies Allergy/AdvReac Type Severity Reaction Status Date / Time No Known Allergies Allergy Verified 07/13/21 18:18 Home Medications Medication Instructions Recorded Confirmed Type albuterol sulfate 90 mcg/actuation 2 puff INHALATION QID PRN 07/13/21 08/03/21 History aerosol inhaler folic acid 1 mg tablet 1 mg PO QAM #30 tab 07/18/21 08/03/21 Rx furosemide 40 mg tablet 40 mg PO QAM #30 tab 07/18/21 08/03/21 Rx magnesium oxide 400 mg (241.3 mg 400 mg PO TID #14 tab 07/18/21 08/03/21 Rx magnesium) tablet multivitamin with folic acid 400 1 tab PO QAM #90 tab 07/18/21 08/03/21 Rx mcg tablet (Daily-Ursula (with folic acid)) potassium chloride 20 mEq 20 meq PO TID #90 tab 07/18/21 08/03/21 Rx tablet,extended release sodium di- and 1 tab PO BID #60 tab 07/18/21 08/03/21 Rx monophosphate-potassium phos monobasic 250 mg tablet (Phospha 250 Neutral) spironolactone 100 mg tablet 100 mg PO QAM #30 tab 07/18/21 08/03/21 Rx thiamine HCl (vitamin B1) 100 mg 100 mg PO QAM #30 tab 07/18/21 08/03/21 Rx tablet Past Med/Surg History Medical History Ascites Cirrhosis Condyloma Knee pain, bilateral No significant past medical history Smoker Surgical History History of surgery "stomach ulcer surgery" Family History Mother Hypertension Father Hyperlipidemia Brother Alcohol abuse Social History Smoking Status: Current every day smoker Tobacco Type: Cigarettes Cigarettes Per Day: 1.5 PPD; Second Hand Exposure: No; Hx Alcohol Use: Yes Alcohol type: hard liquor Hx Substance Use: No Preferred Language: Albanian Communication Ability: Effective Sales Service Assistant Required: No Beliefs That Will Affect Care: None marital status: Single Current Living Situation: Family Current Living Situation Comment: Pt. lives w/ mother and father Feels Safe at Home: Yes Assistive Devices: Oxygen - Continuous Review of Systems Review of Systems: All systems were reviewed and negative except as indicated in HPI above. Physical Exam Physical Exam: CONSTITUTIONAL: WNWD, vitals as above, generally well- appearing, NAD EYES: normal conjunctivae, + scleral icterus, ENT: external ear and nose normal, MMM NECK: trachea midline, RESPIRATORY: clear to auscultation bilaterally, no crackles, rales or wheezes, normal respiratory effort CARDIOVASCULAR: tachy rate and reg rhythm, S1 and 2 heard without murmurs, gallops or rubs, no JVD, no peripheral edema CHEST: inspection of chest was normal GASTROINTESTINAL: soft, protuberant and generally tender to palpation, no guarding. MUSCULOSKELETAL: strength 5/5 throughout, head is normocephalic and atraumatic. Bilateral knee pain to palpation on laterall right and medial left. There is no joint effusion and patient has full range of motion of these joints. SKIN: warm and dry, +jaundice NEUROLOGIC: No facial palsy, no dysarthria. CN 2-12 grossly intact, no sensory deficit, normal cognition, normal speech, no tremor PSYCHIATRIC: alert cooperative and oriented to person, place and time. Euthymic mood, makes good eye contact, language grossly intact, recent and remote memory grossly intact. Results & Data Results & Data ([facility]) Vital Signs (Past 12 Hours) Vital Signs Temp Pulse Resp BP Pulse Ox 08/03/21 13:05 36.6 C 125 H 18 151/89 H 96 Laboratory Results Short CBC 08/03/21 Range/Units 13:53 WBC 20.67 H (4.8-10.8) K/uL Hgb 11.7 L (14.0-18.0) g/dL Hct 34.5 L (42-52) % Plt Count 158 (130-400) K/uL BMP 08/03/21 13:53 Sodium 132 L Potassium 3.8 Chloride 98 Carbon Dioxide 24 BUN 11 Creatinine 0.57 L Glucose 119 H Calcium 8.1 L Liver Function 08/03/21 Range/Units 13:53 Total Bilirubin 9.4 H (0.2-1.0) mg/dl AST 203 H (13-39) U/L ALT 46 (7-52) U/L Alkaline Phosphatase 373 H (34-104) U/L Albumin 3.3 L (3.4-5.0) gm/dl Medications Administered Current Inpatient Medications Gabapentin (Gabapentin 600 Mg Tab) 600 mg PO Q12H RON Stop: 08/06/21 01:46 Gabapentin (Gabapentin 600 Mg Tab) 600 mg PO Q8H RON Stop: 08/05/21 01:46 Gabapentin (Gabapentin 600 Mg Tab) 600 mg PO Q24H RON Stop: 08/07/21 01:46 Gabapentin (Gabapentin 600 Mg Tab) 600 mg PO Q6H RON Stop: 08/04/21 01:46 Magnesium Sulfate/Dextrose (Magnesium Sulfate / D5w) 1 gm in 100 mls @ 50 mls/hr IV Q2H STA Stop: 08/03/21 18:09 Lorazepam (Lorazepam 2 Mg/1 Ml Vial) 1 mg IV ONE PRN; Protocol PRN Reason: EtoH Withdrawal AWSS 6-10 Stop: 09/02/21 14:19 Lorazepam (Lorazepam 2 Mg/1 Ml Vial) 1 mg IV UD PRN; Protocol PRN Reason: EtOH Withdrawl AWSS Score 6,7 Stop: 09/02/21 14:19 Lorazepam (Lorazepam 2 Mg/1 Ml Vial) 2 mg IV UD PRN; Protocol PRN Reason: EtOH Withdrawl AWSS Score 8,9 Stop: 09/02/21 14:19 Lorazepam (Lorazepam 2 Mg/1 Ml Vial) 3 mg IV ONCE PRN; Protocol PRN Reason: EtOH Withdrawl AWSS Score >=10 Stop: 09/02/21 14:19 Miscellaneous (Ativan Iv Alcohol Withdrawl) 1 ea IV UD PRN; Protocol PRN Reason: EtoH Withdrawal AWSS 6-10+ Stop: 09/02/21 14:19 Code Status & VTE Plan VTE Prophylaxis Plan VTE Prophylaxis will be ordered: Yes
[2021-08-03] MEDS ORDERED: MAGNESIUM SULFATE / D5W 1 GM/100 ML BAG IV STA (16:10)
[2021-08-03] MEDS ORDERED: ONDANSETRON INJ 2 MG/ML 2 ML VIAL IV PRN (16:56)
[2021-08-03] MEDS ORDERED: POLYETHYLENE (MIRALAX) 17 GM PACK PO PRN (16:56)
[2021-08-03] MEDS ORDERED: ACETAMINOPHEN 325 MG TAB PO PRN (16:56)
--- NOTE | 2021-08-03 17:11 | Ultrasound Report ---
ULTRASOUND ASCITES CHECK CLINICAL HISTORY: Abdominal ascites. COMPARISON STUDY: Abdominal CT dated 07/06/2021. FINDINGS: Real-time grayscale sonography of all 4 quadrants of the abdomen is performed to assess for abdominal ascites. There is a small volume of ascites seen at all 4 quadrants. Imaged portions of th e liver show cirrhotic morphology. IMPRESSION: Small volume of abdominopelvic ascites. This is likely insufficient for therapeutic parac entesis. Electronically signed by: Ethan Askew M.D. 08/03/2021 5:10 PM
--- NOTE | 2021-08-03 18:51 | Emergency Department Note ---
Impression & Plan Alcohol abuse, Alcohol withdrawal ED Provider Note CHIEF COMPLAINT: Alcohol withdrawal HISTORY OF PRESENT ILLNESS: This 41-year-old male patient presents to the emergency department with complaints of abdominal discomfort, particularly with movement and distention. He states he has a history of alcohol abuse and was checked into the [facility] in [facility]. He was evaluated by the medical staff and was discharged, directed to our facility for further medical management as he was too sick for them to manage. States he drinks about 1 L of vodka daily. He had a paracentesis during his recent admission at the beginning of the month. He denies any fevers, chills, vomiting or bloody stools. REVIEW OF SYSTEMS: A review of systems was performed with positives and pertinent negatives listed in the history of present illness. 10 systems were reviewed and are otherwise negative. ALLERGIES: see below MEDICATIONS: see below PMH: see below SOCIAL HISTORY: see below DDx: Overdose, toxicologic, infection, hypoglycemia, electrolyte abnormalities, cardiac sources, intracerebral event, neurologic, trauma, as well as other pathologies. PHYSICAL EXAM: Vital signs reviewed. Tachycardic, hypertensive General: Chronically ill-appearing 41-year-old male, in no distress. Mildly agitated HEENT: Positive scleral icterus, PERRLA, neck supple. Atraumatic. Cardiovascular: Tachycardic and regular, no extra sounds Pulmonary: Clear to auscultation bilaterally, normal work of breathing. Abdomen: Soft, distended, diffusely tender, no rebound, no guarding, no CVA tenderness. Musculoskeletal: Atraumatic, mild peripheral edema. Neurologic: Patient awake alert and oriented x 3, speech is clear Skin: Warm, dry, no rash. Jaundiced EMERGENCY DEPARTMENT COURSE/MDM: Patient was evaluated and appeared to be in no significant distress. IV access was obtained and laboratory work was drawn. The patient was placed on the monitor and storage bin tender and noted to be in a sinus tachycardia. Patient was hydrated with a banana bag and given 2 mg of IV Ativan for alcohol withdrawal. His records were reviewed. Patient is noted to be mildly hypomagnesemic at 1.5 with an elevated bilirubin of 8.9 however this is much improved over his baseline. He does have a leukocytosis thousand which is really secondary to the prednisone therapy he was recently discharged on. [facility] He will be evaluated for admission and further management. MONITORING: An order for cardiac monitoring was placed and the patient is noted to be in a sinus tachycardia at 125 beats per minute. RADIOLOGY: See below EKG: Sinus tachycardia 114 bpm with RSR prime pattern suggesting a right ventricular conduction delay. Nonspecific T wave abnormality particularly in the inferior leads. No PVC, no PAC. DISPOSITION: admit Past Med/Surg History Medical History Ascites Cirrhosis Condyloma Knee pain, bilateral No significant past medical history Smoker Surgical History History of surgery "stomach ulcer surgery" Family History Mother Hypertension Father Hyperlipidemia Brother Alcohol abuse Social History Smoking Status: Current every day smoker Tobacco Type: Cigarettes Cigarettes Per Day: 1.5 PPD; Second Hand Exposure: No; Do You Dip or Chew Tobacco: No; Tobacco Cessation Education Requested by Patient: No Hx Alcohol Use: Yes Alcohol type: hard liquor Hx Substance Use: No Preferred Language: Japanese Communication Ability: Effective Environmental Engineering Aide Required: No Beliefs That Will Affect Care: None marital status: Single Current Living Situation: Family and Rehab Current Living Situation Comment: Patient was living with mother and father. Recently- alcohol rehab [place] Other Information That Helps Us Care for You: No Feels Safe at Home: Yes Safety Concerns: Feels Safe At This Time Assistive Devices: None Allergies Allergies Allergy/AdvReac Type Severity Reaction Status Date / Time No Known Allergies Allergy Verified 07/13/21 18:18 Home Meds Home Medications Medication Instructions Recorded Confirmed albuterol sulfate 90 mcg/actuation 2 puff INHALATION QID PRN 07/13/21 08/03/21 aerosol inhaler Previous Rx's Medication Instructions Recorded folic acid 1 mg tablet 1 mg PO QAM #30 tab 07/18/21 furosemide 40 mg tablet 40 mg PO QAM #30 tab 07/18/21 magnesium oxide 400 mg (241.3 mg 400 mg PO TID #14 tab 07/18/21 magnesium) tablet multivitamin with folic acid 400 1 tab PO QAM #90 tab 07/18/21 mcg tablet (Daily-Ursula (with folic acid)) potassium chloride 20 mEq 20 meq PO TID #90 tab 07/18/21 tablet,extended release spironolactone 100 mg tablet 100 mg PO QAM #30 tab 07/18/21 thiamine HCl (vitamin B1) 100 mg 100 mg PO QAM #30 tab 07/18/21 tablet clonidine HCl 0.1 mg tablet 0.1 mg PO BID #60 tab 08/06/21 prednisolone 5 mg tablet See Rx Instructions .ROUTE 08/06/21 .COMPLEX #180 tab zolpidem 5 mg tablet (Ambien) 5 mg PO HS PRN #7 tab 08/06/21 Results & Data (ED) Vital Signs Vital Signs - 24 hr 08/03/21 13:05 Temperature 36.6 C Temperature Source Temporal Artery Scan Pulse Rate 125 H Respiratory Rate 18 Blood Pressure 151/89 H Blood Pressure Mean 109 Blood Pressure Position Sitting Pulse Oximetry 96 Oxygen Delivery Method Room Air Sepsis Recent Fever Within 48 Hours No Sepsis New/Unexplained Change in Mental Status No Sepsis Action Taken by Nursing No Action Required Home Medications Current Medication List: was personally reviewed by me Laboratory Data Attestation: I reviewed the patient's lab results. Result diagrams: 08/06/21 06:39 08/06/21 06:39 Lab Results 08/03/21 08/03/21 08/03/21 Range/Units 13:53 13:53 13:53 WBC 20.67 H (4.8-10.8) K/uL RBC 3.06 L (4.7-6.1) M/uL Hgb 11.7 L (14.0-18.0) g/dL Hct 34.5 L (42-52) % MCV 112.7 H (80-100) fL MCH 38.2 H (25-34) pg MCHC 33.9 (32-36) g/dL RDW Std Deviation 66.6 H (36.4-46.3) fL RDW Coeff of Mac 16.3 H (11.5-14.5) % Plt Count 158 (130-400) K/uL MPV 10.5 H (7.4-10.4) fL Immature Gran % (Auto) 0.4 % Neut % (Auto) 82.7 % Lymph % (Auto) 9.7 % Parker % (Auto) 6.0 % Eos % (Auto) 1.0 % Baso % (Auto) 0.2 % Neut # (Auto) 17.11 H (1.4-6.5) K/uL Lymph # (Auto) 2.00 (1.2-3.4) K/uL Parker # (Auto) 1.23 H (0.11-0.59) K/uL Eos # (Auto) 0.20 (0-0.5) K/uL Baso # (Auto) 0.05 (0-0.2) K/uL Immature Gran # (Auto) 0.08 H (0.00-0.02) K/uL Polychromasia 1+ Macrocytosis Present PT (9.0-12.0) Seconds INR (0.9-1.1) Sodium 132 L (136-145) mmol/L Potassium 3.8 (3.5-5.1) mmol/L Chloride 98 (98-107) mmol/L Carbon Dioxide 24 (21-32) mmol/L Anion Gap 10 (3-11) BUN 11 (6-23) mg/dl Creatinine 0.57 L (0.6-1.4) mg/dl Est Cr Clr Drug Dosing 227.5 ml/min Est GFR ( Amer) 148.9 ml/min Est GFR (Non-Af Amer) 128.4 ml/min BUN/Creatinine Ratio 19.3 (10-20) Glucose 119 H (70-99(Fasting)) mg/dl Calcium 8.1 L (8.5-10.1) mg/dl Magnesium 1.5 L (1.7-2.4) mg/dl Total Bilirubin 9.4 H (0.2-1.0) mg/dl AST 203 H (13-39) U/L ALT 46 (7-52) U/L Alkaline Phosphatase 373 H (34-104) U/L Total Protein 7.4 (6.0-8.3) gm/dl Albumin 3.3 L (3.4-5.0) gm/dl Globulin 4.1 H (2.5-4.0) gm/dl Albumin/Globulin Ratio 0.8 L (0.9-2) Ethyl Alcohol mg/dL < 10.0 (<10.0) mg/dl SARS-CoV-2, RNA, NAAT (NEGATIVE) 08/03/21 08/03/21 Range/Units 13:53 13:55 WBC (4.8-10.8) K/uL RBC (4.7-6.1) M/uL Hgb (14.0-18.0) g/dL Hct (42-52) % MCV (80-100) fL MCH (25-34) pg MCHC (32-36) g/dL RDW Std Deviation (36.4-46.3) fL RDW Coeff of Mac (11.5-14.5) % Plt Count (130-400) K/uL MPV (7.4-10.4) fL Immature Gran % (Auto) % Neut % (Auto) % Lymph % (Auto) % Parker % (Auto) % Eos % (Auto) % Baso % (Auto) % Neut # (Auto) (1.4-6.5) K/uL Lymph # (Auto) (1.2-3.4) K/uL Parker # (Auto) (0.11-0.59) K/uL Eos # (Auto) (0-0.5) K/uL Baso # (Auto) (0-0.2) K/uL Immature Gran # (Auto) (0.00-0.02) K/uL Polychromasia Macrocytosis PT 16.7 H (9.0-12.0) Seconds INR 1.6 H (0.9-1.1) Sodium (136-145) mmol/L Potassium (3.5-5.1) mmol/L Chloride (98-107) mmol/L Carbon Dioxide (21-32) mmol/L Anion Gap (3-11) BUN (6-23) mg/dl Creatinine (0.6-1.4) mg/dl Est Cr Clr Drug Dosing ml/min Est GFR ( Amer) ml/min Est GFR (Non-Af Amer) ml/min BUN/Creatinine Ratio (10-20) Glucose (70-99(Fasting)) mg/dl Calcium (8.5-10.1) mg/dl Magnesium (1.7-2.4) mg/dl Total Bilirubin (0.2-1.0) mg/dl AST (13-39) U/L ALT (7-52) U/L Alkaline Phosphatase (34-104) U/L Total Protein (6.0-8.3) gm/dl Albumin (3.4-5.0) gm/dl Globulin (2.5-4.0) gm/dl Albumin/Globulin Ratio (0.9-2) Ethyl Alcohol mg/dL (<10.0) mg/dl SARS-CoV-2, RNA, NAAT NEGATIVE (NEGATIVE) Administered Medications Discontinued Medications Folic Acid (Folic Acid 1 Mg Tab) [facility] Stop: 09/03/21 08:59 Last Admin: 08/06/21 08:36 Dose: 1 mg Documented by: [id number] Admin: 08/05/21 08:08 Dose: 1 mg Documented by: [id number] Admin: 08/04/21 08:17 Dose: 1 mg Documented by: [id number] Furosemide (Furosemide 40 Mg Tab) 40 [facility] [place] Stop: 09/03/21 08:59 Last Admin: 08/06/21 08:36 Dose: 40 mg Documented by: [id number] Admin: 08/05/21 08:08 Dose: 40 mg Documented by: [id number] Admin: 08/04/21 08:17 Dose: 40 mg Documented by: [id number] Gabapentin (Gabapentin 1200mg Alcohol Withdrawal Load) 1 ea PO NOW STA; Protocol Stop: 08/03/21 13:31 Last Admin: 08/03/21 14:15 Dose: Not Given Documented by: [id number] Gabapentin (Gabapentin 600 Mg Tab) 600 mg PO Q12H [facility] Stop: 08/06/21 01:46 Last Admin: 08/05/21 23:20 Dose: 600 mg Documented by: [id number] Admin: 08/05/21 13:14 Dose: 600 mg Documented by: [id number] Gabapentin (Gabapentin 600 Mg Tab) 600 mg PO Q8H RON Stop: 08/05/21 01:46 Last Admin: 08/05/21 00:13 Dose: 600 mg Documented by: [id number] Admin: 08/04/21 17:23 Dose: 600 mg Documented by: [id number] Admin: 08/04/21 08:16 Dose: 600 mg Documented by: [id number] Gabapentin (Gabapentin 600 Mg Tab) 1,200 mg PO NOW ONE Stop: 08/03/21 13:31 Last Admin: 08/03/21 14:15 Dose: 1,200 mg Documented by: [id number] Gabapentin (Gabapentin 600 Mg Tab) 600 mg PO Q6H [facility] Stop: 08/04/21 01:46 Last Admin: 08/04/21 01:48 Dose: 600 mg Documented by: [id number] Admin: 08/03/21 20:34 Dose: 600 mg Documented by: [id number] Multivitamins 10 ml/ Thiamine HCl 100 mg/ Folic Acid 1 mg/Sodium Chloride 1,011.2 mls @ 1,011.2 mls/hr IV .Q1H ONE Stop: 08/03/21 14:17 Last Infusion: 08/03/21 16:57 Dose: 0 mls/hr Documented by: [id number] Admin: 08/03/21 14:15 Dose: 1,011.2 mls/hr Documented by: [id number] Magnesium Sulfate/Dextrose (Magnesium Sulfate / D5w) 1 gm in 100 mls @ 50 mls/hr IV Q2H RON Stop: 08/04/21 01:29 Last Infusion: 08/04/21 01:48 Dose: 0 mls/hr Documented by: [id number] Admin: 08/03/21 23:53 Dose: 50 mls/hr Documented by: [id number] Infusion: 08/03/21 23:53 Dose: 50 mls/hr Documented by: [id number] Admin: 08/03/21 21:58 Dose: 50 mls/hr Documented by: [id number] Infusion: 08/03/21 21:58 Dose: 50 mls/hr Documented by: [id number] Admin: 08/03/21 20:10 Dose: 50 mls/hr Documented by: [id number] Lorazepam (Lorazepam 2 Mg/1 Ml Vial) 2 mg IV NOW STA Stop: 08/03/21 13:19 Last Admin: 08/03/21 14:14 Dose: 2 mg Documented by: [id number] Magnesium Oxide (Magnesium Oxide 400 Mg Tab) 400 mg PO TID RON Stop: 09/02/21 20:59 Last Admin: 08/06/21 14:37 Dose: 400 mg Documented by: [id number] Admin: 08/06/21 08:35 Dose: 400 mg Documented by: [id number] Admin: 08/05/21 23:20 Dose: 400 mg Documented by: [id number] Admin: 08/05/21 13:14 Dose: 400 mg Documented by: [id number] Admin: 08/05/21 08:08 Dose: 400 mg Documented by: [id number] Admin: 08/04/21 20:49 Dose: 400 mg Documented by: [id number] Admin: 08/04/21 13:12 Dose: 400 mg Documented by: [id number] Admin: 08/04/21 08:16 Dose: 400 mg Documented by: [id number] Admin: 08/03/21 20:12 Dose: 400 mg Documented by: [id number] Melatonin (Melatonin 3 Mg Tab) 3 mg PO HS PRN PRN Reason: Sleep Stop: 09/03/21 22:59 Last Admin: 08/05/21 23:20 Dose: 3 mg Documented by: [id number] Admin: 08/05/21 00:14 Dose: 3 mg Documented by: [id number] Miscellaneous (Remove Nicoderm Patch) 1 ea N/A DAILY@[id number] [facility] Stop: 09/03/21 08:58 Last Admin: 08/06/21 10:28 Dose: Not Given Documented by: [id number] Admin: 08/05/21 08:07 Dose: 1 ea Documented by: [id number] Admin: 08/04/21 08:16 Dose: 1 ea Documented by: [id number] Nicotine (Nicotine 21 Mg/24 Hr Tdsy) 21 mg TD QAM [facility] Stop: 09/02/21 17:29 Last Admin: 08/06/21 08:37 Dose: 21 mg Documented by: [id number] Admin: 08/05/21 08:08 Dose: 21 mg Documented by: [id number] Admin: 08/04/21 08:16 Dose: 21 mg Documented by: [id number] Admin: 08/03/21 20:10 Dose: 21 mg Documented by: [id number] Potassium Chloride (Potassium Chloride Crtab 20 Meq Tabcr) 20 meq PO TID RON Stop: 09/02/21 20:59 Last Admin: 08/06/21 14:37 Dose: 20 meq Documented by: [id number] Admin: 08/06/21 08:36 Dose: 20 meq Documented by: [id number] Admin: 08/05/21 23:19 Dose: 20 meq Documented by: [id number] Admin: 08/05/21 13:14 Dose: 20 meq Documented by: [id number] Admin: 08/05/21 08:08 Dose: 20 meq Documented by: [id number] Admin: 08/04/21 20:49 Dose: 20 meq Documented by: [id number] Admin: 08/04/21 13:12 Dose: 20 meq Documented by: [id number] Admin: 08/04/21 08:17 Dose: 20 meq Documented by: [id number] Admin: 08/03/21 20:11 Dose: 20 meq Documented by: [id number] Prednisolone Sodium Phosphate (Prednisolone Sod Phosphate 15 Mg/5 Ml) 40 mg PO NOW ONE Stop: 08/04/21 18:46 Last Admin: 08/04/21 18:46 Dose: 40 mg Documented by: [id number] Prednisolone Sodium Phosphate (Prednisolone Sod Phosphate 15 Mg/5 Ml) 40 mg PO DAILY [facility] Stop: 09/04/21 08:59 Last Admin: 08/06/21 08:37 Dose: 40 mg Documented by: [id number] Admin: 08/05/21 09:50 Dose: 40 mg Documented by: [id number] Spironolactone (Spironolactone 100 Mg Tab) [facility] [place] Stop: 09/03/21 08:59 Last Admin: 08/06/21 08:38 Dose: 100 mg Documented by: [id number] Admin: 08/05/21 08:07 Dose: 100 mg Documented by: [id number] Admin: 08/04/21 08:17 Dose: 100 mg Documented by: [id number] Thiamine HCl (Thiamine Hcl 100 Mg Tab) 100 mg PO [facility] Stop: 09/03/21 08:59 Last Admin: 08/06/21 08:38 Dose: 100 mg Documented by: [id number] Admin: 08/05/21 08:07 Dose: 100 mg Documented by: [id number] Admin: 08/04/21 08:17 Dose: 100 mg Documented by: [id number] Blood Pressure Blood Pressure Findings: Elevated blood pressure Blood Pressure Disposition: Referred to patients primary care provider Discharge Plan Visit Data Chief Complaint: Referred by Doctor Stated Complaint: LIVER DAMAGE, ABNORMAL RBC COUNT, REF BY DOC ED Provider: Meli Hdez Discharge Problem: Alcohol abuse, Alcohol withdrawal Patient Disposition: Admitted As Inpatient Condition: Good Discharge Instructions Interventions: ED Discharge Assessment Last Done: 08/03/21 16:00
[2021-08-03] MEDS: MAGNESIUM SULFATE / D5W 1 GM/100 ML BAG IV SCH ×3 (20:10→23:53)
[2021-08-03] MEDS: NICOTINE 21 MG/24 HR TDSY TD SCH (20:10)
[2021-08-03] MEDS: POTASSIUM CHLORIDE CRTAB 20 MEQ TABCR PO SCH (20:11)
[2021-08-03] MEDS: MAGNESIUM OXIDE 400 MG TAB PO SCH (20:12)
[2021-08-03] MEDS: GABAPENTIN 600 MG TAB PO SCH (20:34)
[2021-08-04] MEDS: GABAPENTIN 600 MG TAB PO SCH ×3 (01:48→17:23)
[2021-08-04 07:25] LABS: INR 1.4 (0.9-1.1); Prothrombin Time 15.1 Seconds (9.0-12.0)
[2021-08-04 07:45] LABS: Alanine Aminotransferase 38 U/L (7-52); Albumin Globulin Ratio 0.8 (0.9-2); Albumin Level 2.9 gm/dl (3.4-5.0); Alkaline Phosphatase 318 U/L (34-104); Anion Gap 7 (3-11); Aspartate Aminotransferase 157 U/L (13-39); BUN Creatinine Ratio 23.3 (10-20); Bilirubin,Total 7.8 mg/dl (0.2-1.0); Blood Urea Nitrogen 10 mg/dl (6-23); Calcium 7.8 mg/dl (8.5-10.1); Carbon Dioxide 25 mmol/L (21-32); Chloride 100 mmol/L (98-107); Creatinine Clr Calc Pharmacy 303.5 ml/min; Est GFR (African American) > 150.0 ml/min; Est GFR (Non-African American) 144.2 ml/min; Globulin 3.6 gm/dl (2.5-4.0); Glucose 93 mg/dl (70-99(Fasting)); Magnesium 1.9 mg/dl (1.7-2.4); Phosphorus 3.3 mg/dl (2.5-4.9); Potassium 3.6 mmol/L (3.5-5.1); Sodium 132 mmol/L (136-145); Total Protein 6.5 gm/dl (6.0-8.3)
[2021-08-04] MEDS: MAGNESIUM OXIDE 400 MG TAB PO SCH ×3 (08:16→20:49)
[2021-08-04] MEDS: NICOTINE 21 MG/24 HR TDSY TD SCH (08:16)
[2021-08-04] MEDS: FOLIC ACID 1 MG TAB PO SCH (08:17)
[2021-08-04] MEDS: SPIRONOLACTONE 100 MG TAB PO SCH (08:17)
[2021-08-04] MEDS: FUROSEMIDE 40 MG TAB PO SCH (08:17)
[2021-08-04] MEDS: POTASSIUM CHLORIDE CRTAB 20 MEQ TABCR PO SCH ×3 (08:17→20:49)
[2021-08-04] MEDS: THIAMINE HCL 100 MG TAB PO SCH (08:17)
[2021-08-04 09:29] LABS: Hematocrit (blood only) 33.5 % (42-52); Mean Corpuscular Hemoglobin 37.9 pg (25-34); Mean Corpuscular Hgb Conc 32.8 g/dL (32-36); Mean Corpuscular Volume 115.5 fL (80-100); Mean Platelet Volume 11.3 fL (7.4-10.4); Platelet Count 143 K/uL (130-400); RDW Coefficient of Variation 16.3 % (11.5-14.5); RDW Standard Deviation 68.8 fL (36.4-46.3); White Blood Count 21.75 K/uL (4.8-10.8)
--- NOTE | 2021-08-04 14:02 | Hospitalist Progress Note ---
Date of Service August 04, 2021 Assessment & Plan (1) Alcohol abuse: (2) Alcohol withdrawal: Plan: Last drink was on 07/31 prior to going into rehab. His rehab program discharged him within 24-48 hours because he was too high acuity to be at their facility. For now he wants to proceed with an inpatient rehabilitation program and wants to stay, withdraw, and then go somewhere when he is more stable. Continue alcohol withdrawal protocol (3) Acute alcoholic liver disease: Plan: Recent hospital stay with similar numbers, although total bilirubin is improved. On admission, his Maddrey's score is around 32. MELD 23. During his last visit, three weeks ago, he received NAC for 21 hours along with steroids. Leukocytosis may be due to recent steroids However, will get BCx Will appreciate GI Continue Lasix, spironolactone, low salt diet (2gm), thiamine, folate supplementation. Will follow up GI if steroid needs to be continued at this time (4) Abdominal pain: Plan: Could be due to ascites Will rule out urinary infection Get UA/culture (5) Hematochezia: Plan: Recent report of this as outpatient last week. H/H stable and he is chronically anemic without changes from baseline. Further workup per GI (6) Hyponatremia: Plan: Likely related to Liver disease (7) Hypomagnesemia: Plan: Patient reports ongoing loose stools and reports compliance with TID Mg supplementation. Monitor and replete as needed (8) Coagulopathy: Plan: 2/2 liver disease. (9) Smoker: Plan: Nicotine patch (10) DVT prophylaxis: Plan: SCDs, hold chemoprophylaxis given recent hematochezia. Full Code Dispo-PCU with transition directly into an inpatient rehab program. Appreciate case management assistance with this transition. Admission and Anticipated Discharge Date Admission Date: August 03, 2021 Subjective Patient seen and examined. Reports lower abdominal discomfort Reports occasional freq but no dysuria, hematuria, urgency Denies nausea, vomiting, constipation Reports some loose stool. Reported some bloody bowel movements in the past which is resolved. Denied cough, shortness of breath Denies headache, dizziness Denies hallucinations anxiety Physical Exam Constitutional: + well hydrated and + obese; no acute distress Eyes: PERRL, conjunctivae normal, anicteric sclerae ENMT: external ear and nose normal, oropharynx normal Respiratory: normal respiratory effort, lungs clear to auscultation Cardiovascular: RRR, S1-S2 Gastrointestinal (Abdomen): Soft, mild distention, nontender, normal bowel sounds Musculoskeletal: no cyanosis or clubbing, extremities motor strength 5/5 Neurologic: PERRL, EOMI, accommodation nl, no face palsy, no dysarthria Psychiatric: A+Ox3, euthymic affect Results & Data Results & Data ([facility]) Vital Signs (Past 12 Hours) Vital Signs Temp Pulse Pulse Resp BP Pulse Ox 08/04/21 11:28 37.3 C 112 H 18 132/80 91 08/04/21 08:39 108 H 08/04/21 07:27 37.1 C 111 H 14 121/76 90 08/04/21 03:00 37.6 C H 112 H 18 132/74 93 Laboratory Results Abnormal lab results 08/04/21 08/04/21 08/04/21 Range/Units 06:47 06:47 06:47 WBC 21.75 H (4.8-10.8) K/uL RBC 2.90 L (4.7-6.1) M/uL Hgb 11.0 L (14.0-18.0) g/dL Hct 33.5 L (42-52) % MCV 115.5 H (80-100) fL MCH 37.9 H (25-34) pg RDW Std Deviation 68.8 H (36.4-46.3) fL RDW Coeff of Mac 16.3 H (11.5-14.5) % MPV 11.3 H (7.4-10.4) fL PT 15.1 H (9.0-12.0) Seconds INR 1.4 H (0.9-1.1) Sodium 132 L (136-145) mmol/L Creatinine 0.43 L (0.6-1.4) mg/dl BUN/Creatinine Ratio 23.3 H (10-20) Calcium 7.8 L (8.5-10.1) mg/dl Total Bilirubin 7.8 H (0.2-1.0) mg/dl AST 157 H (13-39) U/L Alkaline Phosphatase 318 H (34-104) U/L Albumin 2.9 L (3.4-5.0) gm/dl Albumin/Globulin Ratio 0.8 L (0.9-2)
[2021-08-04] MEDS ORDERED: prednisoLONE sod phosphate 15 MG/5 ML UDP PO ONE (16:15)
--- NOTE | 2021-08-04 16:15 | Gastrointestinal Consultation ---
Date of Consultation August 04, 2021 Assessment & Plan (1) Alcoholic hepatitis: Leukocytosis is most likely secondary to the prednisone 40 was prescribed on discharge. Alcoholic hepatitis is improving as evidenced by significant improvement in the total bilirubin. Continue with prednisolone 40 mg daily while admitted. Can change to prednisone on discharge. Typical taper is 40 mg daily for a total of 1 month then taper off over few weeks Doubt there is SBP because of low volume of ascitic fluid. Urine and blood cultures to rule out infection. 2 g sodium diet. Watch for signs of alcohol withdrawal, though he tells us that he has not had alcohol for 4 days or more. No plan for any inpatient GI procedures at this point. Although he had hematochezia, that was initially on presentation during his prior admission. We will plan for outpatient EGD and colonoscopy as well as outpatient follow-up for alcoholic liver disease. Our office will contact him to arrange. Supervising Physician Co-Signing Physician Notes I performed a history and physical examination of the patient today, including specifically on physical exam - soft abdomen. I have discussed the patient's management with the advanced practitioner. Please refer to the nurse practitioner's note for the documented findings and plan of care. Prior Alcoholic hepatitis is significantly improved, I doubt he has cirrhosis. Needs EGD/colonoscopy as OP. Recall GI if needed. History of Present Illness Reason for Consultation: alcoholic cirrhosis with ascites, +hematochezia Requesting Physician: Dr. Salcido Attending Physician: Kayla Dickinson MD History of Present Illness Mr. Kashmir Donohue is a 41 yr old male pt of Dr. Casey with a hx of smoking but otherwise unremarkable hx of was admitted and tx of ETOH hepatitis in Jun 2021. At that time, he was tx with prednisone and has had improvement in his T Bili from a maximum of 18 during his prior admission on July 17 now decreased to 9.4 on arrival on 08/03. He remains uncomfortable with a large ascitic abdomen, but denies any fevers, shortness of breath, dysuria, respiratory symptoms. On arrival, Ultrasound did not show any large pockets of fluid therefore, paracentesis was not completed. He is on prednisone and presented with leukocytosis 20. The patient tells us that he presented because he had been in outpatient rehab and was told that he was too ill to be in that program, that he should present for medical care. He does have a history of rectal bleeding which occurred 1 time when he was presenting for his prior admission and has not had any rectal bleeding since then. Regarding alcohol use, he tells us that for a few days after his last discharge, he relapsed and drank alcohol for about 4 days, then started rehab, and has again abstained since then. He tells me he it has been 4 days since he last drank any alcohol. Allergies Allergy/AdvReac Type Severity Reaction Status Date / Time No Known Allergies Allergy Verified 07/13/21 18:18 Home Medications Medication Instructions Recorded Confirmed Type albuterol sulfate 90 mcg/actuation 2 puff INHALATION QID PRN 07/13/21 08/03/21 History aerosol inhaler folic acid 1 mg tablet 1 mg PO QAM #30 tab 07/18/21 08/03/21 Rx furosemide 40 mg tablet 40 mg PO QAM #30 tab 07/18/21 08/03/21 Rx magnesium oxide 400 mg (241.3 mg 400 mg PO TID #14 tab 07/18/21 08/03/21 Rx magnesium) tablet multivitamin with folic acid 400 1 tab PO QAM #90 tab 07/18/21 08/03/21 Rx mcg tablet (Daily-Ursula (with folic acid)) potassium chloride 20 mEq 20 meq PO TID #90 tab 07/18/21 08/03/21 Rx tablet,extended release sodium di- and 1 tab PO BID #60 tab 07/18/21 08/03/21 Rx monophosphate-potassium phos monobasic 250 mg tablet (Phospha 250 Neutral) spironolactone 100 mg tablet 100 mg PO QAM #30 tab 07/18/21 08/03/21 Rx thiamine HCl (vitamin B1) 100 mg 100 mg PO QAM #30 tab 07/18/21 08/03/21 Rx tablet Patient History Medical History Ascites Cirrhosis Condyloma Knee pain, bilateral No significant past medical history Smoker Surgical History History of surgery "stomach ulcer surgery" Family History Mother Hypertension Father Hyperlipidemia Brother Alcohol abuse Social History Smoking Status: Current every day smoker Tobacco Type: Cigarettes Cigarettes Per Day: 1.5 PPD; Second Hand Exposure: No; Do You Dip or Chew Tobacco: No; Tobacco Cessation Education Requested by Patient: No Hx Alcohol Use: Yes Alcohol type: hard liquor Hx Substance Use: No Preferred Language: Thai Communication Ability: Effective Automation Technician Required: No Beliefs That Will Affect Care: None marital status: Single Current Living Situation: Family and Rehab Current Living Situation Comment: Patient was living with mother and father. Recently- alcohol rehab [facility] Other Information That Helps Us Care for You: No Feels Safe at Home: Yes Safety Concerns: Feels Safe At This Time Assistive Devices: None Review of Systems Review of Systems: ROS: Gen: + weakness (improving), no fevers, no significant weight loss Eyes: + yellow. No eye redness, or pain, no recent vision changes Resp: + feels slightly SOB secondary to large abdomen. No cough Cardio: No palpitations/irregular beats, no chest pain GI: As per HPI, otherwise (-) : Denies pain on urination Skin: +jaundice Physical Exam Constitutional: well developed, + ill appearing and cooperative Eyes: + scleral abnormality (icterus), PERRL and EOM intact bilaterally ENMT: external ear and nose normal, oropharynx normal Neck: trachea midline, no thyromegaly Respiratory: normal respiratory effort, lungs clear to auscultation Cardiovascular: RRR, no murmur, no edema Gastrointestinal (Abdomen): Inspection/Auscultation: + abdomen distended and normal bowel sounds Percussion/Palpation: + abdomen tender (diffusely) and abdomen soft Skin: + jaundice; no ulcers Neurologic: PERRL, EOMI, accommodation nl, no face palsy, no dysarthria awake; not confused Psychiatric: Orientation: alert, oriented x 3 and cooperative Results & Data ([facility]) Vital Signs (Past 12 Hours) Vital Signs Temp Pulse Pulse Resp BP Pulse Ox 08/04/21 15:30 102 H 15 111/70 94 08/04/21 11:28 37.3 C 112 H 18 132/80 91 08/04/21 08:39 108 H 08/04/21 07:27 37.1 C 111 H 14 121/76 90 Laboratory Results WBC 20, Hb 11.7, HCT 34.5, PLT S158, INR 1.4, NA 132, K3.6, CL 100, CO2 25, BUN 10, CR 0.43, glucose 93. Diagnostic Findings US 08/03/21: Small volume of abdominopelvic ascites. This is likely insufficient for therapeutic paracentesis.
[2021-08-04] MEDS ORDERED: prednisoLONE sod phosphate 15 MG/5 ML PO ONE (18:45)
[2021-08-05] MEDS: GABAPENTIN 600 MG TAB PO SCH ×3 (00:13→23:20)
[2021-08-05] MEDS: MELATONIN 3 MG TAB PO PRN ×2 (00:14→23:20)
[2021-08-05 06:43] LABS: Hematocrit (blood only) 33.9 % (42-52); Hemoglobin 11.2 g/dL (14.0-18.0); Mean Corpuscular Hemoglobin 37.5 pg (25-34); Mean Corpuscular Volume 113.4 fL (80-100); Mean Platelet Volume 10.8 fL (7.4-10.4); Platelet Count 153 K/uL (130-400); RDW Coefficient of Variation 15.7 % (11.5-14.5); RDW Standard Deviation 64.5 fL (36.4-46.3); Red Blood Count 2.99 M/uL (4.7-6.1)
[2021-08-05 07:13] LABS: Alanine Aminotransferase 38 U/L (7-52); Albumin Globulin Ratio 0.8 (0.9-2); Albumin Level 3.2 gm/dl (3.4-5.0); Alkaline Phosphatase 331 U/L (34-104); Anion Gap 8 (3-11); Aspartate Aminotransferase 127 U/L (13-39); Bilirubin,Total 7.1 mg/dl (0.2-1.0); Blood Urea Nitrogen 10 mg/dl (6-23); Calcium 8.4 mg/dl (8.5-10.1); Carbon Dioxide 23 mmol/L (21-32); Chloride 103 mmol/L (98-107); Creatinine Clr Calc Pharmacy 348.8 ml/min; Est GFR (African American) > 150.0 ml/min; Est GFR (Non-African American) > 150.0 ml/min; Globulin 3.9 gm/dl (2.5-4.0); Glucose 122 mg/dl (70-99(Fasting)); Magnesium 1.9 mg/dl (1.7-2.4); Potassium 4.7 mmol/L (3.5-5.1); Sodium 134 mmol/L (136-145); Total Protein 7.1 gm/dl (6.0-8.3)
[2021-08-05] MEDS: THIAMINE HCL 100 MG TAB PO SCH (08:07)
[2021-08-05] MEDS: SPIRONOLACTONE 100 MG TAB PO SCH (08:07)
[2021-08-05] MEDS: POTASSIUM CHLORIDE CRTAB 20 MEQ TABCR PO SCH ×3 (08:08→23:19)
[2021-08-05] MEDS: FOLIC ACID 1 MG TAB PO SCH (08:08)
[2021-08-05] MEDS: FUROSEMIDE 40 MG TAB PO SCH (08:08)
[2021-08-05] MEDS: NICOTINE 21 MG/24 HR TDSY TD SCH (08:08)
[2021-08-05] MEDS: MAGNESIUM OXIDE 400 MG TAB PO SCH ×3 (08:08→23:20)
[2021-08-05] MEDS: prednisoLONE sod phosphate 15 MG/5 ML PO SCH (09:50)
--- NOTE | 2021-08-05 10:35 | Hospitalist Progress Note ---
Date of Service August 05, 2021 Assessment & Plan (1) Alcohol abuse: (2) Alcohol withdrawal: Plan: Last drink was on 07/31 prior to going into rehab. His rehab program discharged him within 24-48 hours because he was too high acuity to be at their facility. For now he wants to proceed with an inpatient rehabilitation program and wants to stay, withdraw, and then go somewhere when he is more stable. Patient currently does not seem to be withdrawing or requiring ativan per protocol Will monitor (3) Acute alcoholic liver disease: Plan: Recent hospital stay with similar numbers, although total bilirubin is improved. On admission, his Maddrey's score is around 32. MELD 23. During his last visit, three weeks ago, he received NAC for 21 hours along with steroids. Patient has alcoholic hepatitis Leukocytosis may be due to recent steroids However, follow up BCx and UCx. No antibiotics for now Appreciate GI Continue prednisolone 40mg daily while inpatient. Per GI, needs to be on this on dc for a month since last dc and can be tapered off by 10mg per week afterwards Continue Lasix, spironolactone, low salt diet (2gm), thiamine, folate supplementation. (4) Abdominal pain: Plan: Due to alcoholic hepatitis as above (5) Hematochezia: Plan: Recent report of this as outpatient last week. H/H stable and he is chronically anemic without changes from baseline. Further workup per GI (6) Hyponatremia: Plan: Likely related to Liver disease (7) Hypomagnesemia: Plan: Patient reports ongoing loose stools and reports compliance with TID Mg supplementation. Monitor and replete as needed (8) Coagulopathy: Plan: 2/2 liver disease. (9) Smoker: Plan: Nicotine patch (10) DVT prophylaxis: Plan: SCDs, hold chemoprophylaxis given recent hematochezia. Full Code Dispo-PCU with transition directly into an inpatient rehab program. Appreciate case management assistance with this transition. Admission and Anticipated Discharge Date Admission Date: August 03, 2021 Subjective Patient seen and examined. Reports abd pain Reports occasional freq but no dysuria, hematuria, urgency Denies nausea, vomiting, constipation Reports normal BM today Denied cough, shortness of breath Denies headache, dizziness Denies hallucinations or anxiety Physical Exam Constitutional: + well hydrated and + obese; no acute distress Eyes: PERRL, icterus ENMT: external ear and nose normal, oropharynx normal Respiratory: normal respiratory effort, lungs clear to auscultation Cardiovascular: Rate/Rhythm: regular rate and regular rhythm S1 S2 Musculoskeletal: no cyanosis or clubbing, extremities motor strength 5/5 Neurologic: PERRL, EOMI, accommodation nl, no face palsy, no dysarthria Psychiatric: A+Ox3, euthymic affect Results & Data Results & Data ([facility]) Vital Signs (Past 12 Hours) Vital Signs Temp Pulse Pulse Resp BP BP Pulse Ox 08/05/21 08:16 37.0 C 90 18 131/91 95 08/05/21 08:00 89 08/05/21 04:27 36.9 C 90 18 123/80 96 08/04/21 23:36 102 H 08/04/21 23:10 37.3 C 96 H 18 107/69 91 Laboratory Results Abnormal lab results 08/05/21 08/05/21 Range/Units 06:01 06:01 WBC 14.20 H (4.8-10.8) K/uL RBC 2.99 L (4.7-6.1) M/uL Hgb 11.2 L (14.0-18.0) g/dL Hct 33.9 L (42-52) % MCV 113.4 H (80-100) fL MCH 37.5 H (25-34) pg RDW Std Deviation 64.5 H (36.4-46.3) fL RDW Coeff of Mac 15.7 H (11.5-14.5) % MPV 10.8 H (7.4-10.4) fL Sodium 134 L (136-145) mmol/L Creatinine 0.37 L (0.6-1.4) mg/dl BUN/Creatinine Ratio 27.0 H (10-20) Glucose 122 H (70-99(Fasting)) mg/dl Calcium 8.4 L (8.5-10.1) mg/dl Total Bilirubin 7.1 H (0.2-1.0) mg/dl AST 127 H (13-39) U/L Alkaline Phosphatase 331 H (34-104) U/L Albumin 3.2 L (3.4-5.0) gm/dl Albumin/Globulin Ratio 0.8 L (0.9-2)
[2021-08-06 07:12] LABS: Hematocrit (blood only) 36.7 % (42-52); Hemoglobin 11.7 g/dL (14.0-18.0); Mean Corpuscular Hemoglobin 36.9 pg (25-34); Mean Corpuscular Hgb Conc 31.9 g/dL (32-36); Mean Corpuscular Volume 115.8 fL (80-100); Mean Platelet Volume 10.7 fL (7.4-10.4); Platelet Count 182 K/uL (130-400); RDW Coefficient of Variation 15.7 % (11.5-14.5); RDW Standard Deviation 66.2 fL (36.4-46.3); Red Blood Count 3.17 M/uL (4.7-6.1); White Blood Count 19.52 K/uL (4.8-10.8)
[2021-08-06 07:29] LABS: Alanine Aminotransferase 46 U/L (7-52); Albumin Globulin Ratio 0.8 (0.9-2); Albumin Level 3.2 gm/dl (3.4-5.0); Alkaline Phosphatase 319 U/L (34-104); Anion Gap 6 (3-11); Aspartate Aminotransferase 142 U/L (13-39); BUN Creatinine Ratio 29.2 (10-20); Blood Urea Nitrogen 14 mg/dl (6-23); Calcium 8.9 mg/dl (8.5-10.1); Carbon Dioxide 26 mmol/L (21-32); Chloride 103 mmol/L (98-107); Creatinine Clr Calc Pharmacy 269.9 ml/min; Est GFR (African American) > 150.0 ml/min; Est GFR (Non-African American) 137.8 ml/min; Glucose 86 mg/dl (70-99(Fasting)); Potassium 4.1 mmol/L (3.5-5.1); Sodium 135 mmol/L (136-145); Total Protein 7.2 gm/dl (6.0-8.3)
[2021-08-06] MEDS: MAGNESIUM OXIDE 400 MG TAB PO SCH ×2 (08:35→14:37)
[2021-08-06] MEDS: FOLIC ACID 1 MG TAB PO SCH (08:36)
[2021-08-06] MEDS: POTASSIUM CHLORIDE CRTAB 20 MEQ TABCR PO SCH ×2 (08:36→14:37)
[2021-08-06] MEDS: FUROSEMIDE 40 MG TAB PO SCH (08:36)
[2021-08-06] MEDS: NICOTINE 21 MG/24 HR TDSY TD SCH (08:37)
[2021-08-06] MEDS: prednisoLONE sod phosphate 15 MG/5 ML PO SCH (08:37)
[2021-08-06] MEDS: SPIRONOLACTONE 100 MG TAB PO SCH (08:38)
[2021-08-06] MEDS: THIAMINE HCL 100 MG TAB PO SCH (08:38)
--- NOTE | 2021-08-06 13:12 | Discharge Summary ---
Date of Service August 06, 2021 Admission HPI Per Admitting Provider 41 yo alcoholic cirrhotic presents from inpatient alcohol rehab facility, [facility], reporting he was discharged because he was told he was too sick to be there. He is exhibiting signs of alcohol withdrawal. He has no evidence of active bleeding, but reports bright red blood per rectum last week. He states is looked like "a puddle of blood." He denies vomiting and no hematemesis. Loose watery stool-not on laxatives +abdominal pain, general, feels like a tightening like having a belt that is too tight. +wt gain, unknown amount. Has not eating for two days. Has bilateral knee pain, causing him to be unable to walk, minimizing activity. Using nothing for pain; just using ice. Last alcoholic drink was 07/31. No fevers, no chills. Wants to withdraw from alcohol and return to inpatient rehab. He has late stage cirrhosis with ascites and recently underwent a paracentesis 3 weeks ago with 3L take off at that time. He takes Lasix and aldactone regularly. His Mag is low at 1.6 and he takes MgOx replacement 400mg TID. Principal Diagnosis Acute alcohol hepatitis Alcohol Abuse Alcohol withdrawal Mild Hyponatremia Nicotine addiction Hypomagnesemia Discharge Exam Appears well, no acute distress. Patient requesting to be discharged home with his father. He will make his own arrangements to attend alcohol rehab end of the week once he settles his personal and financial affairs Patient has not required any BZD since 72 hours prior to discharge and is not in withdrawal currently Discharge Data Allergies Allergy/AdvReac Type Severity Reaction Status Date / Time No Known Allergies Allergy Verified 07/13/21 18:18 Consultations 08/03/21 15:11 ED Decision to Admit Stat 08/04/21 07:00 Consult Gastroenterology Routine Ordered Studies 08/03/21 16:07 US abdomen ltd ascites Routine Hospital Course Mr Kashmir Donohue is a 41 year old man with history of alcohol abuse who was recently admitted here with acute alcohol hepatitis was sent from rehab 08/03 due to alcohol withdrawal symptoms. He last drank alcohol 07/31 prior to enter rehab and while there began to develop withdrawal. He received IV ativan here and was placed on a gabapentin taper. He did not need any additional BZD since 08/03/21 and did not exhibit withdrawal symptoms at the time of discharge. While here, he was maintained on prednisolone 40mg daily with plan to continue it for a total of 30 days (until 08/18/2021), he will then be tapered down 10mg every week. While here, he was seen by GI and plan for outpatient EGD and colonoscopy. His LFTs remains stable. He was started on clonidine 0.1mg BID to help with withdrawal symptoms, he was also given a trial of ambien 5mg QHS PRN for insomnia and will need to follow up with his PCP for further management of his insomnia. Patient was discharged home with his father to sort out his personal and financial affairs. Then, he plans to check himself back into rehab at the end of week. Total Time Total Time Spent Total Time Spent (In Minutes): 35 Discharge Plan Discharge Items Patient Disposition: Home - Self-Care Reason For Visit: ALCOHOL WITHDRAWAL, CIRRHOSIS Discharge Diagnosis: Acute alcohol hepatitis Alcohol withdrawal Condition on Discharge: Good Activity: Resume your previous activity Non-emergency contact: Primary Care Provider and Specialist Call non-emergency contact if: you have any medication questions and your symptoms worsen Follow-up/Referrals: Surendra Casey DO [Primary Care Provider] - Diet: Regular Addtl Attending Provider Instructions: You should be on prednisolone 40mg daily until 08/18/2021. Then after that, you will begin your taper (decrease by 10mg weekly) Follow up with GI for outpatient EGD and colonoscopy, office will contact you Follow up with your PCP for further management of your insomnia Stand-Alone Forms: My Lien Enforcement, Smoking Cessation Medications and DC Order Prescriptions: New prednisolone 5 mg tablet See Rx Instructions .ROUTE .COMPLEX Qty: 180 RF: 0 clonidine HCl 0.1 mg tablet 0.1 mg PO BID Qty: 60 RF: 0 zolpidem [Ambien] 5 mg tablet 5 mg PO HS PRN (Reason: insomnia) Qty: 7 RF: 0 Continued albuterol sulfate 90 mcg/actuation HFA aerosol inhaler 2 puff INHALATION QID PRN (Reason: Shortness Of Breath Or Wheezing) RF: 0 spironolactone 100 mg Tablet 100 mg PO QAM Qty: 30 RF: 0 furosemide 40 mg Tablet 40 mg PO QAM Qty: 30 RF: 0 magnesium oxide 400 mg (241.3 mg magnesium) Tablet 400 mg PO TID Qty: 14 RF: 0 folic acid 1 mg Tablet 1 mg PO QAM Qty: 30 RF: 0 multivitamin with folic acid [Daily-Ursula (with folic acid)] 400 mcg Tablet 1 tab PO QAM Qty: 90 RF: 0 thiamine HCl (vitamin B1) 100 mg Tablet 100 mg PO QAM Qty: 30 RF: 0 potassium chloride 20 mEq tablet extended release 20 meq PO TID Qty: 90 RF: 0 Discontinued Phospha 250 Neutral 250 mg Tablet 1 tab PO BID Qty: 60 RF: 0 Discharge Orders: Discharge Order (Routine); Ordered 08/06/21 Ordered By: Can Grullon/Other Patient Handouts: Alcoholism Resources Admission Data Admit Date/Time: 08/03/21 15:17 Attending Provider: Can Bennett Admit Provider: Mirlande Salcido Primary Care Provider: Surendra Casey Other Providers: Mirlande Salcido ; Pao Goff ; Kayla Dickinson I.
[2021-08-07] MEDS ORDERED: GABAPENTIN 600 MG TAB PO SCH (01:45)
--- NOTE | 2021-08-11 08:22 | Coding Query ---
Acute dependence CODING QUERY To promote full compliance with coding requirements relating to patient care, provider participation is requested in all cases of sandstone splitter uncertainty. Please assist us with the question(s) below: Coding Question(s): Patient with history of alcohol abuse was sent from rehab 08/03 due to alcohol withdrawal symptoms.- Discharge summary -08/06/21 Received IV ativan and was placed on a gabapentin taper- Hospital course, Discharge summary -08/06/21 Alcohol abuse - Discharge diagnosis, Discharge summary -08/06/21 Alcohol withdrawal -Discharge diagnosis,Discharge summary -08/06/21 Based on the above clinical documentation please further clarify , If patient was having : A) Alcohol Dependence B) Alcohol Abuse without Alcohol Dependence C) Unable to Determine Physician's Response(s): Thank you Con Valverde Principal Diagnosis: "that condition established after study, to be chiefly responsible for occasioning the admission of the patient to the hospital for care." Co-Existing Principal Diagnosis: "when two or more diagnoses equally meet the criteria for principal diagnosis as determined by the circumstances of admission, diagnostic work up, and/or therapy provided, and the Alphabetic Index, Tabular List, or another coding guideline does not provide sequencing direction, any one of the diagnoses may be sequenced first." "When the physician has documented what appears to be a current diagnosis in the body of the record, but has not included the diagnosis in the final diagnostic statement, the physician should be asked whether the diagnosis should be added." (Source Coding [facility] 2 QTR90. p3-4) DEVANTE
== END 2021-08-06 14:56 | disposition home or self-care (01) | DRG 897 ==
LOC: ED 13:03 → 2S 15:17 → SUATTDRO 15:17 → 2S 16:00
DX: K70.11 Alcoholic hepatitis with ascites; Z68.31 Body mass index [BMI] 31.0-31.9, adult; F10.239 Alcohol dependence with withdrawal, unspecified; E87.1 Hypo-osmolality and hyponatremia; E83.42 Hypomagnesemia; F17.210 Nicotine dependence, cigarettes, uncomplicated; G47.00 Insomnia, unspecified; Z79.51 Long term (current) use of inhaled steroids; E66.9 Obesity, unspecified; D68.4 Acquired coagulation factor deficiency